=== PATIENT | female | born 2000 | race Caucasian/White ===

== ENCOUNTER 2019-09-23 06:50 | Emergency (ER) | payer SELFPAY ==
[2019-09-23 06:52] VITALS: BP 120/75; PULSE 84; RESP 16; TEMP 37; O2SAT 97; BMI 25.8
--- NOTE | 2019-09-23 06:58 | ED_ITS ---
Entered by Teodora Canseco, acting as scribe for HPI - Abdominal Pain General: Chief Complaint: General Medical Stated Complaint: vomiting/ Multiple complaints Time Seen by Provider: 09/23/19 06:58 Source: patient Mode of arrival: ambulatory History of Present Illness: HPI narrative: 19 yo female presents with heartburn, muscle aches and vomiting. pt states this started today. pt has had a headache. pt has a hx of migraines. pt states she is achy all over. pt denies any other symptoms at this time. MD elicited complaint: abdominal pain Pertinent past history: other Onset (ago): day(s) (today) Pain Consistency: constant Location: Other (bilateral knee pain) Quality: aching Radiation: none Exacerbating factors: nothing Relieving factors: nothing Associated Symptoms: Reports heartburn, nausea, vomiting and other (headache, bilateral knee pain); Denies chills, dysuria, fever(s), hematuria and syncope Related Data: Date of Last Menstrual Period: 08/31/19 Review of Systems General: Reports: other (negative unless marked) Const: Denies: fever, chills, body aches, fatigue, malaise or diaphoresis Eyes: Denies: change in vision or blurry vision ENMT: Denies: throat pain, painful swallowing, hoarseness, ear pain, ear discharge, Change in hearing or nasal discharge Card: Denies: chest pain, palpitations, irregular heart rhythm, syncope, pre- syncope, shortness of breath on exertion or shortness of breath when lying down Resp: Denies: shortness of breath, productive cough, non-productive cough, wheezing, coughing up blood or chest congestion GI: Reports: nausea, vomiting, heartburn/indigestion and other (headache, bilateral knee pain) : Denies: flank pain, painful urination, urinary frequency, urinary urgency, decreased urine ouput, urinary incontinence or blood in urine Musc: Denies: neck pain, back pain, extremity pain, extremity swelling, joint pain, joint swelling, joint warmth or joint stiffness Skin/Breast: Denies: rash, skin tenderness or yellow skin Neuro: Denies: headache, numbness in extremities, weakness in extremities, changes in sensation, lack of coordination, difficulty walking, dizziness, vertigo or confusion Endo: Denies: excessive thirst, tired all the time, cold intolerance, excessive sweating, flushing or hot flashes Lex/Lymph: Denies: easy bruising, easy bleeding, petechiae or enlarged lymph nodes All/Imm: Denies: hives, throat swelling, tongue swelling, facial swelling or acute wheezing PFSH ED PFSH: Statuses (acute, chronic, etc) shown below reflect problem list status as previously entered and may not be historically accurate Social History Smoking and tobacco status: never smoked Female Reproductive History: Date of last menstrual period: 08/31/19 Physical Exam Const: COMMON NORMALS: no apparent distress, oriented x3, no limitations, healthy appearing and well nourished EXAM LIMITATIONS: no altered mental status GENERAL APPEARANCE: cooperative, well kempt and well developed ORIENTATION/CONSCIOUSNESS: Yes awake HENMT: COMMON NORMALS: normocephalic, head/scalp atraumatic, hearing grossly normal bilaterally, external ears normal, EAC's normal, external nose normal and moist oral mucous membranes HEAD & SCALP: normal to inspection, normocephalic and atraumatic FACE & SINUS: normal facial exam and face symmetric NOSE: external nose normal and nares normal EXTERNAL EAR: Yes external ears normal EXTERNAL AUDITORY CANAL: EAC's normal MOUTH: oral and palatal mucosa normal and tongue normal Eye: COMMON NORMALS: PERRL, EOMs intact bilaterally, conjunctivae normal and no scleral icterus GENERAL EYE: normal appearance of both eyes and normal light reflex CONJUNCTIVA: Yes conjunctivae normal SCLERA: sclerae normal CORNEA: Yes corneas normal PUPIL: Yes PERRL DIRECT OPHTHALMOSCOPY: Yes normal light reflex Neck/C-Spine: COMMON NORMALS: full ROM, no lymphadenopathy, supple, no meningeal signs and no JVD GENERAL: Yes normal visual inspection and Yes trachea midline CERVICAL SPINE: Yes cervical ROM normal Chest: COMMONS NORMALS: inspection of chest normal and palpation of chest normal Resp: COMMON NORMALS: normal respiratory effort, no retractions, no use of accessory muscles and clear to auscultation bilaterally EFFORT & INSPECTION: Yes able to speak in complete sentences AUSCULTATION: clear to auscultation bilaterally Cardio: COMMON NORMALS: no JVD, regular rate, regular rhythm, S1 normal heart sound, S2 normal heart sound, no gallops, no clicks, no murmurs and no rub JUGULAR VENOUS DISTENTION: no JVD RATE: regular rate RHYTHM: regular rhythm HEART SOUNDS: S1 normal and S2 normal GI: COMMON NORMALS: soft to palpation, non-tender, no hepatosplenomegaly and no masses INSPECTION: Yes normal to inspection PALPATION: Yes soft and Yes no hepatosplenomegaly : COMMON NORMALS: Yes no CVA tenderness BLADDER/KIDNEY EXAM: Yes no CVA tenderness Back/Pelvis: COMMON NORMALS: no CVA tenderness, thoracic and lumbar spine normal to inspection, no thoracic nor lumbar tenderness and thoraco-lumbar ROM normal Extremity: COMMON NORMALS: normal to inspection, full ROM, normal capillary refill, no joint enlargement, no clubbing, cyanosis or edema and no calf tenderness Neuro: COMMON NORMALS: oriented x3, CN's II-XII intact bilaterally, moves all extremities, no focal motor deficits and no sensory deficits noted MENINGEAL SIGNS: Yes no meningeal signs Psych: COMMON NORMALS: mental status grossly normal, thought process normal, cooperative, affect normal, speech normal and activity/motor behavior normal APPEARANCE: Yes well kempt SPEECH: Yes normal speech THOUGHT PROCESS: normal thought process Skin: COMMON NORMALS: no rashes or lesions noted, skin turgor normal, no jaundice, no petechiae and no mottling GENERAL SKIN EXAM: no rashes or lesions noted and turgor normal Course Vital Signs: Vital signs: Vital Signs Temperature 98.6 F 09/23/19 06:52 Pulse Rate 71 09/23/19 07:59 Respiratory Rate 16 09/23/19 06:52 Blood Pressure 107/74 09/23/19 07:59 Pulse Oximetry 99 09/23/19 07:59 MDM - Abdominal Pain MDM Narrative: Medical decision making narrative: The patient's primary complaint was that of nausea and reflux. She complained of diffuse muscle aches and pains, somewhat flu type symptoms but her chest x-ray, urinalysis and flu test have been negative. She states she is feeling better at this time and would like to be discharged. She would like something for indigestion and nausea at home. He is also requesting time off work which I will give her. Lab Data: Labs: Lab Results 09/23/19 09/23/19 09/23/19 Range/Units 07:20 07:20 07:20 WBC 10.5 H (4.0-10.0) 10^3/ uL RBC 4.97 (4.1-5.3) 10^6/u L Hgb 14.9 (11.5-15.3) g/dL Hct 43.5 (37.0-47.0) % MCV 87.5 (81-99) fL MCH 30.0 (28.0-34.0) pg MCHC 34.3 (30.0-36.0) g/dL RDW 12.2 (12.1-15.1) % Plt Count 436 H (130-400) 10^3/c mm MPV 9.4 (7.4-10.4) fL Neut % (Auto) 64.9 % Lymph % (Auto) 25.5 % [place] % (Auto) 7.8 % Eos % (Auto) 1.1 % Baso % (Auto) 0.4 % Neut # (Auto) 6.8 (1.8-7.7) 10^3/u L Lymph # (Auto) 2.7 (0.8-4.8) 10^3/u L [place] # (Auto) 0.8 (0.2-0.9) 10^3/u L Eos # (Auto) 0.1 (0.0-0.8) 10^3/u L Baso # (Auto) 0.0 (0.0-0.1) 10^3/u L Nucleated RBC % (a uto) 0 % Nucleated RBCs # 0.0 /100WBC Sodium 134 L (136-145) mmol/L Potassium 4.0 (3.5-5.1) mmol/L Chloride 101 (98-107) mmol/L Carbon Dioxide 21 L (22-29) mmol/L Anion Gap 16.0 (5-19) BUN 14 (6-20) mg/dL Creatinine 0.6 (0.5-0.9) mg/dL GFR Calculation 126.2 (90-130) mL/min Glucose 90 (74-109) mg/dL Calcium 9.7 (8.6-10.0) mg/Dl Total Bilirubin 1.0 (0.15-1.2) mg/dL AST 20 (0-32) U/L ALT 16 (0-33) U/L Alkaline Phosphata se 59 (35-105) IU/L Total Protein 7.5 (6.6-8.7) g/dL Albumin 4.5 (3.5-5.2) g/dL Globulin 3.0 (1.3-4.6) g/dL HCG, Qual Negative (Negative) Urine Color (Yellow) Urine Appearance (CLEAR) Urine pH (5-7) Ur Specific Gravit y (1.005-1.030) Urine Protein (Negative) Urine Glucose (UA) (Normal) Urine Ketones (Negative) Urine Occult Blood (Negative) Urine Nitrate (Negative) Urine Bilirubin (NEGATIVE) Urine Urobilinogen (Negative) mg/dL Ur Leukocyte Leona ase (Negative) Urine RBC (0-2) /hpf Urine WBC (0-5) /hpf Ur Squamous Epith Cells (0-5) Urine Bacteria (NONE) Urine Mucus Influenza Type A A g (Negative) POC Influenza B Ag (Negative) 09/23/19 09/23/19 Range/Units 07:44 07:56 WBC (4.0-10.0) 10^3/ uL RBC (4.1-5.3) 10^6/u L Hgb (11.5-15.3) g/dL Hct (37.0-47.0) % MCV (81-99) fL MCH (28.0-34.0) pg MCHC (30.0-36.0) g/dL RDW (12.1-15.1) % Plt Count (130-400) 10^3/c mm MPV (7.4-10.4) fL Neut % (Auto) % Lymph % (Auto) % [place] % (Auto) % Eos % (Auto) % Baso % (Auto) % Neut # (Auto) (1.8-7.7) 10^3/u L Lymph # (Auto) (0.8-4.8) 10^3/u L [place] # (Auto) (0.2-0.9) 10^3/u L Eos # (Auto) (0.0-0.8) 10^3/u L Baso # (Auto) (0.0-0.1) 10^3/u L Nucleated RBC % (a uto) % Nucleated RBCs # /100WBC Sodium (136-145) mmol/L Potassium (3.5-5.1) mmol/L Chloride (98-107) mmol/L Carbon Dioxide (22-29) mmol/L Anion Gap (5-19) BUN (6-20) mg/dL Creatinine (0.5-0.9) mg/dL GFR Calculation (90-130) mL/min Glucose (74-109) mg/dL Calcium (8.6-10.0) mg/Dl Total Bilirubin (0.15-1.2) mg/dL AST (0-32) U/L ALT (0-33) U/L Alkaline Phosphata se (35-105) IU/L Total Protein (6.6-8.7) g/dL Albumin (3.5-5.2) g/dL Globulin (1.3-4.6) g/dL HCG, Qual (Negative) Urine Color Yellow (Yellow) Urine Appearance Sl hazy (CLEAR) Urine pH 5 (5-7) Ur Specific Gravit y 1.015 (1.005-1.030) Urine Protein Neg (Negative) Urine Glucose (UA) Norm (Normal) Urine Ketones Negative (Negative) Urine Occult Blood Neg (Negative) Urine Nitrate Negative (Negative) Urine Bilirubin Neg (NEGATIVE) Urine Urobilinogen Norm (Negative) mg/dL Ur Leukocyte Leona ase Negative (Negative) Urine RBC 0-4 H (0-2) /hpf Urine WBC 5-10 H (0-5) /hpf Ur Squamous Epith Cells 10-15 H (0-5) Urine Bacteria 1+ H (NONE) Urine Mucus Trace Influenza Type A A g Negative (Negative) POC Influenza B Ag Negative (Negative) Imaging Data ^: CXR: My impression: Lungs clear bilaterally. Normal heart size without sign of cardiomegaly. Soft tissues and musculoskeletal findings clear. Discharge Plan Discharge Patient Disposition: Home, Self-Care Condition: Stable Prescriptions: New Pepcid 20 mg tablet 20 mg PO BID Qty: 20 RF: 0 Zofran 4 mg tablet 4 mg PO DAILY PRN (Reason: nausea and vomiting) 4 Days Qty: 10 RF: 0 No Action Apri 0.15-0.03 mg Tablet 1 tab PO DAILY RF: 0 Discharge Orders: Discharge Order (Routine); Ordered 09/23/19 Ordered By: Jenn Olson Referrals: Gustavo Baltazar, DO [Family Provider] - Discharge Diet: Advance as tolerated Discharge Activity: Resume usual activity Patient Instructions: Abdominal Pain - Adult Activity Restrictions/Additional Instructions: Please return to the ER immediately for any of the signs or symptoms listed on your discharge instruction sheets, worsening/changing of your symptoms, you are not getting better as quickly as expected, or for ANY other cause or concerns. Discharge Date/Time: 09/23/19 09:25 Coding Level of Care Code ED Decal Maker for Chapito Alfred The documentation recorded by the Ajith kunz Bridget Annette, accurately reflects the service I personally performed and the decisions made by Whitney soliz Eli N Sep 23, 2019 06:50
--- NOTE | 2019-09-23 07:00 | XR_ITS ---
WS: [id number] PORTABLE CHEST HISTORY: FEVER COMPARISON: 05/04/2016 Lungs are clear and well expanded. No pleural effusion or pneumothorax. Cardiac size: Normal. Mediastinum/Aorta: Normal mediastinum. No osseous abnormality seen. XR/XR chest 1V portable [id number] IMPRESSION: Unremarkable portable chest.
[2019-09-23] MEDS: acetaminophen 325 mg Tablet 650 MG PO (07:31)
[2019-09-23] MEDS: sodium chloride 0.9% 1,000 ML 999 ML IV (07:32)
[2019-09-23] MEDS: ondansetron 2 mg/ML SDV 2 mL 4 MG IVP (07:32)
[2019-09-23 07:33] LABS: Basophils % 0.4 %; Eosinophils # 0.1 10^3/uL (0.0-0.8); Eosinophils % 1.1 %; Hematocrit 43.5 % (37.0-47.0); Hemoglobin 14.9 g/dL (11.5-15.3); Lymphocytes # 2.7 10^3/uL (0.8-4.8); Lymphocytes % 25.5 %; Mean Corpuscular HGB Conc 34.3 g/dL (30.0-36.0); Mean Corpuscular Volume 87.5 fL (81-99); Mean Platelet Volume 9.4 fL (7.4-10.4); Monocytes # 0.8 10^3/uL (0.2-0.9); Monocytes % 7.8 %; Neutrophils # 6.8 10^3/uL (1.8-7.7); Neutrophils % 64.9 %; Nucleated Red Blood Cells % 0 %; Platelet Count 436 10^3/cmm (130-400); Red Blood Count 4.97 10^6/uL (4.1-5.3); Red Cell Distribution Width 12.2 % (12.1-15.1); White Blood Count 10.5 10^3/uL (4.0-10.0)
[2019-09-23 07:49] LABS: Alanine Aminotransferase 16 U/L (0-33); Albumin Level 4.5 g/dL (3.5-5.2); Alkaline Phosphatase 59 IU/L (35-105); Aspartate Amino Transferase 20 U/L (0-32); Blood Urea Nitrogen 14 mg/dL (6-20); Calcium 9.7 mg/Dl (8.6-10.0); Carbon Dioxide 21 mmol/L (22-29); Chloride 101 mmol/L (98-107); Glomerular Filtration Rate 126.2 mL/min (90-130); Glucose 90 mg/dL (74-109); Sodium 134 mmol/L (136-145); Total Protein 7.5 g/dL (6.6-8.7)
[2019-09-23 07:52] LABS: HCG, Serum Qual Negative (Negative)
[2019-09-23 07:59] VITALS: BP 107/74; PULSE 71; O2SAT 99
[2019-09-23 08:14] LABS: Influenza A by IFA Negative (Negative)
[2019-09-23 08:15] LABS: Influenza B by IFA Negative (Negative)
[2019-09-23 08:25] LABS: Bilirubin Urine Neg (NEGATIVE); Blood Urine Neg (Negative); Glucose Urine UA Norm (Normal); Ketones Urine Negative (Negative); Leukocyte Esterase Urine Negative (Negative); Nitrate Urine Negative (Negative); Protein Urine Neg (Negative); Specific Gravity, Urine 1.015 (1.005-1.030); Urine Appearance SL Hazy (CLEAR); Urine Color Yellow (Yellow); Urobilinogen Urine Norm (Negative); pH Urine 5 (5-7)
[2019-09-23 08:35] LABS: Mucus Urine TRACE
[2019-09-23 08:36] LABS: Add Urine Culture? No; Bacteria Urine 1+; RBC Urine 0-4 /hpf (0-2)
--- NOTE | 2019-09-23 09:20 | NUR.SHIFT ---
Patient is up and dressed. Blood pressure improved with activity blood pressure 102/64 at this time and preparing for discharge.
== END 2019-09-23 09:25 | disposition home or self-care (01) ==
PROVIDERS: Emergency Provider Emergency Medicine; Family Provider Family Medicine
DX: R11.10 Vomiting, unspecified (principal); R10.9 Unspecified abdominal pain
CPT/HCPCS: 71045; 80053; 81001; 84703; 85025; 87804; 96360; 96374; 99282; A9270; J2405; J7030

== ENCOUNTER 2019-11-14 15:52 | Outpatient (CLI) | payer SELFPAY ==
--- NOTE | 2019-11-14 16:05 | XR_ITS ---
WS: [id number] LEFT SHOULDER: 3 VIEW(S) TECHNIQUE: Internal and external rotation with Y view. HISTORY: SHOULDER PAIN LEFT COMPARISON: None available. No fracture or dislocation or soft tissue abnormality. Glenohumeral and AC joints are unremarkable. XR/XR shoulder LT min 2V* [id number] IMPRESSION: Normal LEFT shoulder.
== END 2019-11-14 15:53 | disposition home or self-care (01) ==
LOC: RADWPI 15:55
PROVIDERS: Family Provider Family Medicine; PCP Nurse Practitioner Family; Visit Provider Nurse Practitioner Family
DX: M25.512 Pain in left shoulder (principal)
CPT/HCPCS: 73030

== ENCOUNTER 2020-04-21 08:40 | Emergency (ER) | payer MEDICAID, SELFPAY ==
[2020-04-21 08:45] VITALS: BP 119/67; PULSE 84; RESP 16; TEMP 36.9; O2SAT 99; BMI 27.6
--- NOTE | 2020-04-21 08:48 | W.ED.ABDPA2 ---
HPI - Abdominal Pain General: Chief Complaint: Abdominal Pain Stated Complaint: 12 WEEKS PREG ABD PAIN Time Seen by Provider: 04/21/20 08:45 History of Present Illness: HPI narrative: 19-year-old female comes in complaining abdominal pain she is at approximately 12 weeks 6 days. She is a G1, P0 EDC of 11/17/2020. She complaining of low pelvic pain and suprapubic pain she denies any flank pain. Started last night she denies any fever she not had any nausea or vomiting she has had a couple episodes of loose stools no hematochezia or melena she denies any vaginal bleeding or discharge or itching. She describes the pain is intermittent and cramping. MD elicited complaint: abdominal pain Pertinent past history: other (Current ) Onset (ago): day(s) Pain Consistency: intermittent Location: Suprapubic Severity: moderate Quality: cramping Radiation: none Migration to: no migration Exacerbating factors: nothing Relieving factors: rest Associated Symptoms: Denies change in stool character, coffee ground emesis, constipation, GI cramping, diarrhea, dysuria, fever(s), hematochezia, hematuria, hematemesis, fecal incontinence, loose stools, melena, nausea, poor appetite and vomiting Related Data: Date of Last Menstrual Period: 08/31/19 Review of Systems Const: Denies: fever(s) ENMT: Denies: throat pain, ear or mastoid pain, nasal discharge or nasal congestion Card: Denies: chest pain, edema, dyspnea on exertion or orthopnea Resp: Denies: dyspnea, productive cough or non-productive cough GI: Denies: nausea, vomiting, hematemesis, coffee ground emesis, diarrhea, constipation, GI cramping, fecal incontinence, change in stool character, hematochezia or melena : Denies: dysuria or hematuria Skin/Breast: Denies: rash or pruritus PFSH ED PFSH: Medical History (Updated 04/21/20 @ 16:06 by Gustavo Baltazar DO) Hereditary cavernous hemangioma of brain Hypothyroidism Surgical History (Updated 04/21/20 @ 16:06 by Gustavo Baltazar DO) No history of previous surgery Social History (Updated 04/21/20 @ 16:06 by Gustavo Baltazar DO) Smoking and tobacco status: never smoked Alcohol intake: never Female Reproductive History: Date of last menstrual period: 08/31/19 Physical Exam Const: COMMON NORMALS: no acute distress GENERAL APPEARANCE: cooperative and comfortable ORIENTATION/CONSCIOUSNESS: Yes awake, Yes oriented to person, Yes oriented to place and Yes oriented to time HENMT: COMMON NORMALS: normocephalic, atraumatic, hearing grossly normal bilaterally, external ears normal, EAC's normal, TM's normal bilaterally, Normal nasal mucous membranes and turbinates present, moist oral mucous membranes and oropharynx normal HEAD & SCALP: normocephalic and atraumatic NOSE: Normal nasal mucous membranes and turbinates present EXTERNAL EAR: Yes external ears normal EXTERNAL AUDITORY CANAL: EAC's normal TYMPANIC MEMBRANE: TM's normal bilaterally Eye: COMMON NORMALS: Equal, round and reactive pupils present, EOMs intact bilaterally, conjunctivae normal and no scleral icterus CONJUNCTIVA: Yes conjunctivae normal PUPIL: Yes Equal, round and reactive pupils present Neck/C-Spine: COMMON NORMALS: full ROM, no lymphadenopathy, supple and no JVD Lymph: LYMPHATIC: no lymphadenopathy noted and no lymphedema noted Resp: COMMON NORMALS: normal respiratory effort, No retractions, No use of accessory muscles and clear to auscultation bilaterally AUSCULTATION: clear to auscultation bilaterally Cardio: COMMON NORMALS: no JVD, regular rate, regular rhythm and No murmurs present (Cardio) RATE: regular rate RHYTHM: regular rhythm GI: COMMON NORMALS: Soft to palpation and No hepatosplenomegaly present AUSCULTATION: Yes normoactive bowel sounds PALPATION: Yes Soft to palpation, No Tenderness to palpation present (GI), No Guarding due to palpation present (GI) and Yes No hepatosplenomegaly present Extremity: COMMON NORMALS: normal to inspection, capillary refill normal, no clubbing, cyanosis or edema, no calf tenderness and no pedal edema Neuro: SENSORIUM/ORIENTATION: Yes oriented to person, Yes oriented to place and Yes oriented to time Skin: COMMON NORMALS: no rashes or lesions noted GENERAL SKIN EXAM: no rashes or lesions noted Course Vital Signs: Vital signs: Vital Signs Temperature 98.4 F 04/21/20 08:45 Pulse Rate 80 04/21/20 10:41 Respiratory Rate 18 04/21/20 10:41 Blood Pressure 110/71 04/21/20 10:41 Pulse Oximetry 99 04/21/20 10:41 MDM - Abdominal Pain MDM Narrative: Medical decision making narrative: Viewed findings with the patient. Suspect she has round ligament pain did do a bedside ultrasound to confirm intrauterine and heart tones demonstrated to the patient. Discussed with her that this is a limited ultrasound only intended to show heart tones and intrauterine . Follow-up with her MICROSTRATEGY ARCHITECT DEVELOPER as previously scheduled Lab Data: Labs: Lab Results 04/21/20 04/21/20 04/21/20 Range/Units 09:05 09:14 09:14 WBC 11.5 H (4.0-10.0) 10^3/ uL RBC 4.25 (4.1-5.3) 10^6/u L Hgb 12.9 (11.5-15.3) g/dL Hct 37.6 (37.0-47.0) % MCV 88.5 (81-99) fL MCH 30.4 (28.0-34.0) pg MCHC 34.3 (30.0-36.0) g/dL RDW 12.7 (12.1-15.1) % Plt Count 351 (130-400) 10^3/c mm MPV 9.7 (7.4-10.4) fL Neut % (Auto) 71.4 % Lymph % (Auto) 19.7 % [place] % (Auto) 7.0 % Eos % (Auto) 1.3 % Baso % (Auto) 0.3 % Neut # (Auto) 8.21 H (1.8-7.7) 10^3/u L Lymph # (Auto) 2.3 (0.8-4.8) 10^3/u L [facility] # (Auto) 0.8 (0.2-0.9) 10^3/u L Eos # (Auto) 0.2 (0.0-0.8) 10^3/u L Baso # (Auto) 0.0 (0.0-0.1) 10^3/u L Nucleated RBC % (a uto) 0 % Nucleated RBCs # 0.0 /100WBC Sodium 136 (136-145) mmol/L Potassium 3.7 (3.5-5.1) mmol/L Chloride 104 (98-107) mmol/L Carbon Dioxide 22 (22-29) mmol/L Anion Gap 13.7 (5-19) BUN 7 (6-20) mg/dL Creatinine 0.6 (0.5-0.9) mg/dL GFR Calculation 126.2 (90-130) mL/min Glucose 86 (65-115) mg/dL Calculated Osmolal ity 277 L (285-295) mOsm/k g Calcium 9.0 (8.5-10.5) mg/dL Total Bilirubin 0.5 (0.15-1.2) mg/dL AST 14 (0-32) U/L ALT 9 (0-33) U/L Alkaline Phosphata se 59 (35-105) IU/L Total Protein 6.5 L (6.6-8.7) g/dL Albumin 3.7 (3.5-5.2) g/dL Globulin 2.8 (1.3-4.6) g/dL Ser , [place] [address].00 mIU/mL Urine Color Yellow (Yellow) Urine Appearance Hazy A (CLEAR) Urine pH 7 (5-7) Ur Specific Gravit y 1.015 (1.005-1.030) Urine Protein Neg (Negative) Urine Glucose (UA) Norm (Normal) Urine Ketones Negative (Negative) Urine Blood Neg (Negative) Urine Nitrate Negative (Negative) Urine Bilirubin Neg (NEGATIVE) Urine Urobilinogen Norm (Negative) mg/dL Ur Leukocyte Leona ase Negative (Negative) Urine RBC None (0-2) /hpf Urine WBC 0-4 H (0-5) /hpf Ur Squamous Epith Cells 15-25 H (0-5) Amorphous Sediment Not Reportable Urine Bacteria 2+ H (NONE) Discharge Plan Discharge Patient Disposition: Home Clinical Impression: Pain of round ligament during Condition: Stable Prescriptions: No Action Tylenol 325 mg Tablet 325 mg PO PRN RF: 0 Euthyrox 25 mcg tablet 25 mcg PO DAILY RF: 0 Gummies 400 mcg-35 mg- 25 mg-5 mg Tablet,Chewable 2 tab PO DAILY RF: 0 Discharge Orders: Discharge Order (Routine); Ordered 04/21/20 Ordered By: Gustavo Baltazar Referrals: KELLIE ELKINS, DOG OR HORSE RACING OFFICIAL [Primary Care Provider] - Discharge Diet: Usual diet Discharge Activity: Increase activity as tolerated Patient Instructions: Cholecystitis (ED), Abdominal Pain (ED) Activity Restrictions/Additional Instructions: Follow-up with Dr. Linder as previously planned Discharge Date/Time: 04/21/20 10:45 Coding Level of Care Code ED Oiler Helper for Chapito Alfred
[2020-04-21 09:23] LABS: Basophils % 0.3 %; Eosinophils # 0.2 10^3/uL (0.0-0.8); Eosinophils % 1.3 %; Hematocrit 37.6 % (37.0-47.0); Hemoglobin 12.9 g/dL (11.5-15.3); Lymphocytes # 2.3 10^3/uL (0.8-4.8); Lymphocytes % 19.7 %; Mean Corpuscular HGB Conc 34.3 g/dL (30.0-36.0); Mean Corpuscular Hemoglobin 30.4 pg (28.0-34.0); Mean Corpuscular Volume 88.5 fL (81-99); Mean Platelet Volume 9.7 fL (7.4-10.4); Monocytes # 0.8 10^3/uL (0.2-0.9); Neutrophils # 8.21 10^3/uL (1.8-7.7); Neutrophils % 71.4 %; Nucleated Red Blood Cells % 0 %; Platelet Count 351 10^3/cmm (130-400); Red Blood Count 4.25 10^6/uL (4.1-5.3); Red Cell Distribution Width 12.7 % (12.1-15.1); White Blood Count 11.5 10^3/uL (4.0-10.0)
[2020-04-21] MEDS: sodium chloride 0.9% 500 ML 999 ML IV (09:37)
[2020-04-21 09:55] LABS: Alanine Aminotransferase 9 U/L (0-33); Albumin Level 3.7 g/dL (3.5-5.2); Alkaline Phosphatase 59 IU/L (35-105); Anion Gap 13.7 (5-19); Aspartate Amino Transferase 14 U/L (0-32); Blood Urea Nitrogen 7 mg/dL (6-20); Carbon Dioxide 22 mmol/L (22-29); Chloride 104 mmol/L (98-107); Globulin 2.8 g/dL (1.3-4.6); Glomerular Filtration Rate 126.2 mL/min (90-130); Glucose 86 mg/dL (65-115); Osmolality Calculated 277 mOsm/kg (285-295); Potassium 3.7 mmol/L (3.5-5.1); Sodium 136 mmol/L (136-145); Total Bilirubin 0.5 mg/dL (0.15-1.2); Total Protein 6.5 g/dL (6.6-8.7)
[2020-04-21] MEDS: metoclopramide 5 mg/mL SDV 2 mL 10 MG IVP (09:56)
[2020-04-21 10:11] LABS: Urine Appearance Hazy (CLEAR); Urine Color Yellow (Yellow)
[2020-04-21 10:12] LABS: Add Urine Culture? No; Add Urine Microscopic? YES; Bacteria Urine 2+; Bilirubin Urine Neg (NEGATIVE); Blood Urine Neg (Negative); Glucose Urine UA Norm (Normal); Ketones Urine Negative (Negative); Leukocyte Esterase Urine Negative (Negative); Nitrate Urine Negative (Negative); Protein Urine Neg (Negative); Specific Gravity, Urine 1.015 (1.005-1.030); Squamous Epithelial Cell Urine 15-25 (0-5); Urobilinogen Urine Norm (Negative); WBC Urine 0-4 /hpf (0-5); pH Urine 7 (5-7)
[2020-04-21 10:41] VITALS: BP 110/71; PULSE 80; RESP 18; O2SAT 99
== END 2020-04-21 10:45 | disposition home or self-care (01) ==
PROVIDERS: Emergency Provider Family Medicine; PCP Nurse Practitioner Family
DX: O26.891 Other specified pregnancy related conditions, first trimester (principal); Z3A.12 12 weeks gestation of pregnancy; R10.2 Pelvic and perineal pain
CPT/HCPCS: 12345; 36415; 80053; 81001; 81003; 84702; 85025; 96361; 96374; 96375; 99283; J2765; J7040

== ENCOUNTER → 2020-08-13 12:27 | Day surgery (SDC) | payer MEDICAID, SELFPAY ==
[2020-08-13 12:56] VITALS: BP 115/80; PULSE 85; RESP 18; TEMP 37.2; O2SAT 97; BMI 30.9
[2020-08-13 17:43] VITALS: PULSE 85; RESP 18; TEMP 37.2
== END ==
PROVIDERS: PCP Family Medicine; Visit Provider Family Medicine
DX: O26.899 Other specified pregnancy related conditions, unspecified trimester (principal); Z3A.00 Weeks of gestation of pregnancy not specified; Z31.82 Encounter for Rh incompatibility status; Z67.91 Unspecified blood type, Rh negative
CPT/HCPCS: 36415; 86850; 86900; 90384; 96372

== ENCOUNTER 2020-08-17 18:50 | Outpatient (CLI) | payer MEDICAID, SELFPAY ==
[2020-08-17] VITALS (27 sets, daily range): BP systolic 0–129; BP diastolic 0–83; PULSE 73–107; RESP 16; TEMP 36.7–36.9; O2SAT 96–100; BMI 31.3
[2020-08-17 19:43] LABS: Nitrazine Paper, PH Negative
[2020-08-17 20:16] LABS: Bilirubin Urine Neg (Negative); Blood Urine Neg (Negative); Glucose Urine UA Norm (Normal); Ketones Urine 1+ (Negative); Leukocyte Esterase Urine Negative (Negative); Nitrate Urine Negative (Negative); Protein Urine Neg (Negative); RBC Urine 0-4 /hpf (0-2); Urine Appearance SL Hazy (CLEAR); Urine Color Yellow (Yellow); Urobilinogen Urine 4 mg/dL (Negative); pH Urine 6.5 (5-7)
[2020-08-17 20:17] LABS: Add Urine Culture? No; Bacteria Urine TRACE /hpf; Calcium Oxalate Crystals Urine 25-40 /hpf; Squamous Epithelial Cell Urine >100 /hpf (0-5); WBC Urine 0-4 /hpf (0-5)
[2020-08-17] MEDS: acetaminophen 500 mg Tablet 1000 MG PO (21:10)
== END 2020-08-17 22:50 | disposition home or self-care (01) ==
LOC: OPOB 18:58 → OBGYN 22:45
PROVIDERS: PCP Family Medicine; Visit Provider Family Medicine
DX: O36.8190 Decreased fetal movements, unspecified trimester, not applicable or unspecified (principal); Z3A.00 Weeks of gestation of pregnancy not specified; R10.9 Unspecified abdominal pain
CPT/HCPCS: 59025; 81001; 83986; 99211

== ENCOUNTER 2020-09-26 00:41 | Outpatient (CLI) | payer MEDICAID, SELFPAY ==
[2020-09-26] VITALS (10 sets, daily range): BP systolic 119–124; BP diastolic 79–84; PULSE 76–84; RESP 16; TEMP 36.2; BMI 33.9
[2020-09-26 01:52] LABS: Urine Appearance Clear (CLEAR); Urine Color Yellow (Yellow)
[2020-09-26 01:53] LABS: Add Urine Culture? No; Bacteria Urine 2+ /hpf; Bilirubin Urine Neg (Negative); Blood Urine Neg (Negative); Glucose Urine UA Norm (Normal); Ketones Urine Negative (Negative); Leukocyte Esterase Urine Negative (Negative); Nitrate Urine Negative (Negative); Protein Urine Trace (Negative); Specific Gravity, Urine 1.005 (1.005-1.030); Squamous Epithelial Cell Urine 0-4 /hpf (0-5); Urobilinogen Urine Norm (Negative); WBC Urine 0-4 /hpf (0-5); pH Urine 6.5 (5-7)
[2020-09-26] MEDS: HYDROcodone-acetaminophen 5-325 mg Tablet 1 TAB PO (01:57)
== END 2020-09-26 02:45 | disposition home or self-care (01) ==
LOC: OPOB 00:41 → OBGYN 00:42
PROVIDERS: PCP Family Medicine; Visit Provider Family Medicine
DX: O21.9 Vomiting of pregnancy, unspecified (principal); R19.7 Diarrhea, unspecified; R51.9 Headache, unspecified; Z3A.00 Weeks of gestation of pregnancy not specified
CPT/HCPCS: 59025; 81001; 99211

== ENCOUNTER 2020-10-02 16:59 | Outpatient (CLI) | payer MEDICAID, SELFPAY ==
[2020-10-02 17:33] VITALS: BP 125/89; PULSE 86
[2020-10-02 17:46] VITALS: BP 124/88; PULSE 90
[2020-10-02 18:02] VITALS: BP 135/93; PULSE 88
[2020-10-02 18:17] VITALS: BP 134/93; PULSE 80
[2020-10-02 18:20] VITALS: BP 134/93; PULSE 80
== END 2020-10-02 18:23 | disposition home or self-care (01) ==
LOC: OPOB 17:00 → OBGYN 18:07
PROVIDERS: PCP Family Medicine; Visit Provider Family Medicine
DX: O16.9 Unspecified maternal hypertension, unspecified trimester (principal); Z3A.00 Weeks of gestation of pregnancy not specified
CPT/HCPCS: 59025; 99211

== ENCOUNTER 2020-10-05 20:27 | Inpatient (IN) | payer MEDICAID, SELFPAY ==
[2020-10-05] VITALS (22 sets, daily range): BP systolic 121–175; BP diastolic 83–106; PULSE 83–104; RESP 14–18; TEMP 36.9–37.1; BMI 35.3
[2020-10-05 18:54] LABS: Nitrazine Paper, PH Inconclusive
[2020-10-05 19:17] LABS: Bilirubin Urine Neg (Negative); Blood Urine Neg (Negative); Glucose Urine UA Norm (Normal); Ketones Urine Negative (Negative); Leukocyte Esterase Urine Negative (Negative); Nitrate Urine Negative (Negative); Protein Urine 3+ (Negative); Urine Color Yellow (Yellow); Urobilinogen Urine Norm (Negative); pH Urine 6.5 (5-7)
[2020-10-05 19:19] LABS: Add Urine Culture? No; Bacteria Urine 2+ /hpf; RBC Urine 0-4 /hpf (0-2); Squamous Epithelial Cell Urine 40-55 /hpf (0-5); WBC Urine 0-4 /hpf (0-5)
[2020-10-05 19:33] LABS: Urine Creatinine 193 mg/dL (28-217)
[2020-10-05 19:52] LABS: UPRO/UCREAT Ratio 3.95 mg/mg CR; Urine Protein Random 762 mg/dL
[2020-10-05] MEDS: miSOPROStol 100 mcg tablet 25 MCG VAGINAL (21:00)
[2020-10-05] MEDS: ampicillin 2,000 MG in sodium chloride 0.9% (plus) 50 ML 100 MG IV (21:01)
[2020-10-05] MEDS: dextrose 5%-lactated ringers 1,000 ML 125 ML IV (21:02)
[2020-10-05 21:51] LABS: Basophils # 0.1 10^3/uL (0.0-0.1); Basophils % 0.3 %; Eosinophils # 0.1 10^3/uL (0.0-0.8); Eosinophils % 0.6 %; Hematocrit 36.4 % (37.0-47.0); Hemoglobin 11.8 g/dL (11.5-15.3); Lymphocytes # 3.6 10^3/uL (0.8-4.8); Lymphocytes % 20.6 %; Mean Corpuscular HGB Conc 32.4 g/dL (30.0-36.0); Mean Corpuscular Hemoglobin 28.5 pg (28.0-34.0); Mean Corpuscular Volume 87.9 fL (81-99); Mean Platelet Volume 12.1 fL (7.4-10.4); Monocytes # 1.1 10^3/uL (0.2-0.9); Neutrophils # 12.69 10^3/uL (1.8-7.7); Neutrophils % 71.8 %; Nucleated Red Blood Cells % 0 %; Platelet Count 288 10^3/cmm (130-400); Red Blood Count 4.14 10^6/uL (4.1-5.3); Red Cell Distribution Width 13.2 % (12.1-15.1); White Blood Count 17.7 10^3/uL (4.0-10.0)
[2020-10-05 22:18] LABS: Alanine Aminotransferase 12 U/L (0-33); Albumin Level 3.1 g/dL (3.5-5.2); Alkaline Phosphatase 129 IU/L (35-105); Anion Gap 15.1 (5-19); Aspartate Amino Transferase 23 U/L (0-32); Blood Urea Nitrogen 12 mg/dL (6-20); Calcium 8.7 mg/dL (8.5-10.5); Carbon Dioxide 19 mmol/L (22-29); Chloride 98 mmol/L (98-107); Globulin 3.1 g/dL (1.3-4.6); Glomerular Filtration Rate 89.7 mL/min (90-130); Glucose 69 mg/dL (65-115); Osmolality Calculated 264 mOsm/kg (285-295); Potassium 4.1 mmol/L (3.5-5.1); Sodium 128 mmol/L (136-145); Total Bilirubin 0.7 mg/dL (0.15-1.2); Total Protein 6.2 g/dL (6.6-8.7); Uric Acid 6.6 mg/dL (2.4-5.7)
[2020-10-06] VITALS (87 sets, daily range): BP systolic 124–176; BP diastolic 61–104; PULSE 81–139; RESP 16–22; TEMP 36.1–37.7; O2SAT 97–100
[2020-10-06] MEDS: ampicillin 1,000 MG in sodium chloride 0.9% (plus) 50 ML 100 MG IV ×6 (01:14→20:30)
[2020-10-06] MEDS: lactated ringers 1,000 ML 999 ML IV ×2 (01:14→13:11)
[2020-10-06] MEDS: fentaNYL 50 mcg/mL INJ 2mL IV ×9 (07:16→23:49)
[2020-10-06] MEDS: miSOPROStol 100 mcg tablet 25 MCG SUBLINGUAL (09:06)
--- NOTE | 2020-10-06 13:42 | ANES.PREANE2 ---
Pre-Anesthetic Assessment Pre-Anesthetic Assessment: Height/Weight: Height 1.5 m Weight 79.379 kg Temp Pulse Resp BP 98.8 F 91 18 133/78 10/06/20 10:51 10/06/20 12:33 10/06/20 12:46 10/06/20 12:33 Preop Diagnosis: labor Proposed Procedure: epidural Familial anesthetic complications: na Was Beta Sadia taken within 24 hours: N/A Last Intake: 01:00 Social: Social History: No alcohol and No tobacco Exam: Pre-Anes Outpt Exam: alert, oriented x 3, clear to auscultation bilaterally and regular rate & rhythm Airway: Submandibular: WNL Cervical ROM: WNL MP: 2 Dentition: Full Pulmonary: Pulmonary: None reported CV/HEM: CV/HEM: HTN (with ) : : None reported Hepatic: Hepatic: None reported GI: GI: None reported Metabolic: Metabolic: Thyroid (hypo) Musc/skel: Musc/skel: None reported Neuropsych: Neuropsych: Anxiety, Depression and KLINE Comments: venous angioma Anesthetic Plan: ASA status: 2 Anesthesia: Regional (specify below) (epidural) Meds/Allergies Current Medications: Current Medications Generic Name Dose Route Start Last Admin Trade Name Freq PRN Reason Stop Dose Admin Fentanyl 25 - 100 mcg 10/05/20 20:26 10/06/20 12:46 Fentanyl 50 Mcg/ Ml Inj 2ml IV 50 mcg Q1H PRN Administration SEVERE PAIN Dextrose/Lactated Ringer's 1,000 mls @ 125 m ls/hr 10/05/20 20:30 10/05/20 21:02 Dextrose 5%-Lact ated Ringers IV 125 mls/hr .Q8H SHERRON Administration Lactated Ringer's 1,000 mls @ 999 m ls/hr 10/05/20 20:26 10/06/20 01:14 Lactated Ringers IV 999 mls/hr .Q1H1M PRN Administration BLEEDING Lactated Ringer's 1,000 mls @ 999 m ls/hr 10/05/20 20:26 10/06/20 13:11 Lactated Ringers IV 999 mls/hr .Q1H1M PRN Administration Per L&D Rescitati on Protocol Ampicillin Sodium 1,000 mg/ 50 mls @ 100 mls/ hr 10/06/20 00:27 10/06/20 09:05 Sodium Chloride IV Infused Q4H SHERRON Infusion Protocol PFSH Anesthesia PFSH: Medical History (Updated 04/29/20 @ 00:01 by ) Hereditary cavernous hemangioma of brain Hypothyroidism Surgical History (Updated 04/21/20 @ 16:06 by Gustavo Baltazar DO) No history of previous surgery Social History (Updated 04/21/20 @ 16:06 by Gustavo Baltazar DO) Smoking and tobacco status: never smoked Alcohol intake: never Female Reproductive History: Date of last menstrual period: 08/31/19 : 1 Data Anesthesia CBC & Chem 7: 10/05/20 20:53 10/05/20 20:53 Other Labs: Laboratory Results - last 48 hr 10/05/20 10/05/20 10/05/20 18:00 18:00 18:40 WBC RBC Hgb Hct MCV MCH MCHC RDW Plt Count MPV Neut % (Auto) Lymph % (Auto) [place] % (Auto) Eos % (Auto) Baso % (Auto) Neut # (Auto) Lymph # (Auto) [place] # (Auto) Eos # (Auto) Baso # (Auto) Nucleated RBC % (auto) Nucleated RBCs # Sodium Potassium Chloride Carbon Dioxide Anion Gap BUN Creatinine GFR Calculation Glucose Calculated Osmolality Uric Acid Calcium Total Bilirubin AST ALT Alkaline Phosphatase Total Protein Albumin Globulin Insulin-like GF I Cancelled Urine Color Yellow Urine Appearance Sl cloudy A Urine pH 6.5 Ur Specific [place] 1.010 Urine Protein 3+ H Urine Glucose (UA) Norm Urine Ketones Negative Urine Blood Neg Urine Nitrate Negative Urine Bilirubin Neg Urine Urobilinogen Norm Ur Leukocyte Esterase Negative Urine RBC 0-4 H Urine WBC 0-4 H Ur Squamous Epith Cells 40-55 H Amorphous Sediment Not Reportable Urine Bacteria 2+ H U Random Total Protein 762 Urine Creatinine 193 Protein/Creatinin Ratio 3.95 10/05/20 10/05/20 20:53 20:53 WBC 17.7 H RBC 4.14 Hgb 11.8 Hct 36.4 L MCV 87.9 MCH 28.5 MCHC 32.4 RDW 13.2 Plt Count 288 MPV 12.1 H Neut % (Auto) 71.8 Lymph % (Auto) 20.6 [place] % (Auto) 6.0 Eos % (Auto) 0.6 Baso % (Auto) 0.3 Neut # (Auto) 12.69 H Lymph # (Auto) 3.6 [place] # (Auto) 1.1 H Eos # (Auto) 0.1 Baso # (Auto) 0.1 Nucleated RBC % (auto) 0 Nucleated RBCs # 0.0 Sodium 128 L Potassium 4.1 Chloride 98 Carbon Dioxide 19 L Anion Gap 15.1 BUN 12 Creatinine 0.8 GFR Calculation 89.7 L Glucose 69 Calculated Osmolality 264 L Uric Acid 6.6 H Calcium 8.7 Total Bilirubin 0.7 AST 23 ALT 12 Alkaline Phosphatase 129 H Total Protein 6.2 L Albumin 3.1 L Globulin 3.1 Insulin-like GF I Urine Color Urine Appearance Urine pH Ur Specific [place] Urine Protein Urine Glucose (UA) Urine Ketones Urine Blood Urine Nitrate Urine Bilirubin Urine Urobilinogen Ur Leukocyte Esterase Urine RBC Urine WBC Ur Squamous Epith Cells Amorphous Sediment Urine Bacteria U Random Total Protein Urine Creatinine Protein/Creatinin Ratio Cardiac Studies: No Data to Display
--- NOTE | 2020-10-06 14:20 | ANES.PROC ---
Anesthesia Procedures Procedure/Date: 10/06/20 Epidural: Time Out Performed: Yes Consents Signed: Procedure Consent and NPO Consent Consent: requested by attending/covering physician, from patient, risks and benefits reviewed and patient agrees to proceed Lumbar Level: L3-L4 Epidural position: sitting Epidural procedure: sterile prep of area (betadine), 1% lidocaine to numb the area (3ml), 18 g needle, neg for paresthesia, test dose given, 1.5% xylocaine 1:200k epi (5ml), 0.2% Ropivacaine bolus ml (5ml), placed PCEA, no systemic response, sterile dressing applied, L.U.D. no apparent complications and 0.2% Ropiavacaine @ mls/hr (10ml/hr)
[2020-10-06] MEDS: oxytocin 30 UNIT/500 ML BAG IV (14:25)
--- NOTE | 2020-10-06 15:51 | ANES.PROC ---
Anesthesia Procedures Procedure/Date: 10/06/20 epidural Procedure Narrative: Called to OB LDR 4 with pt c/o Left side and back pain with epidural. Spoke with pt and agreed to replace. Pt with epidural D/C'd with catheter intact. Epidural: Time Out Performed: Yes Consents Signed: Procedure Consent and NPO Consent Consent: requested by attending/covering physician, from patient, risks and benefits reviewed and patient agrees to proceed Lumbar Level: L4-L5 Epidural position: sitting Epidural procedure: sterile prep of area (betadine), 1% lidocaine to numb the area (3ml), 18 g needle, neg for paresthesia, test dose given, 1.5% xylocaine 1:200k epi (5ml), 0.2% Ropivacaine bolus ml (5ml), placed PCEA, no systemic response, sterile dressing applied, L.U.D. no apparent complications and 0.2% Ropiavacaine @ mls/hr (10ml/hr) Additional Comments: pt given Lidocaine 1%MPF and 100 MCG Fentanyl via epidural
[2020-10-06] MEDS: hyDROXYzine 25 mg Capsule 50 MG PO (17:44)
--- NOTE | 2020-10-06 17:50 | PC.NURSE ---
Left modified renee with right leg in stir up
[2020-10-06] MEDS: ondansetron 2 mg/ML SDV 2 mL 4 MG IVP (20:40)
--- NOTE | 2020-10-06 20:51 | P.HP_ITS ---
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 History of Present Illness Luis Eduardo Hutchins is a 20 year old 1 female Present Details : 1 Para: 0 Date of Last Menstrual Period: 08/31/19 Calculated Date of Delivery: 06/06/20 Gestational Age Based on Last Menstrual Period: 57 Labs GBS: Positive Medications/Allergies Home Medications Medication Instructions Recorded Confirmed Last Taken Type PNV no.[id number] 2 tab PO DAILY 04/21/20 10/06/20 10/05/20 08:00 History [ Gummies] levothyroxine [Euthyrox] 25 mcg PO DAILY 04/21/20 10/05/20 10/05/20 08:00 History Allergies Allergy/AdvReac Type Severity Reaction Status Date / Time sulfamethoxazole Allergy ALGY-Hives Verified 10/06/20 12:20 [From Bactrim] trimethoprim [From Bactrim] Allergy ALGY-Hives Verified 10/06/20 12:20 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: Medical History (Updated 04/29/20 @ 00:01 by ) Hereditary cavernous hemangioma of brain Hypothyroidism Surgical History (Updated 04/21/20 @ 16:06 by Gustavo Baltazar DO) No history of previous surgery Social History (Updated 04/21/20 @ 16:06 by Gustavo Baltazar DO) Smoking and tobacco status: never smoked Alcohol intake: never Vitals/I&O/Wt Last Vital Signs Temp 98.4 F 10/06/20 19:40 Pulse 110 H 10/06/20 20:24 Resp 20 H 10/06/20 19:43 BP 148/82 10/06/20 20:24 Pulse Ox 98 10/06/20 15:53 10/06/20 10/06/20 10/06/20 06:59 14:59 22:59 Intake Total 100 / 100 416.35 / 416.35 90.833 / 507.183 Balance 100 / 100 416.35 / 416.35 90.833 / 507.183 Weight last 48 hrs Weight 175 lb Physical Exam Urinary Catheter Management^: Garcia: Cath Placed During This Visit: yes Reason for Continuing Indwelling Catheter: Required Immobilization for Trauma or Surgery or Anesthesia Urinary Catheter Date of Insertion: 10/06/20 Urinary Catheter Time of Insertion: 14:39 Data : 10/05/20 20:53 10/05/20 20:53 Coding Level of Care Code Acute 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
--- NOTE | 2020-10-06 22:00 | ANES.PROC ---
Anesthesia Procedures Procedure/Date: 10/06/20 labor Procedure Narrative: Pt with pain/pressure noted with contractions. Pt given 2% lidocaine MPF 6ml with 100mcg fentanyl via epidural
[2020-10-06] MEDS: labetalol 5 mg/mL SDV 20mL 20 MG IVP (22:43)
[2020-10-06] MEDS: magnesium sulfate premix 4 GM/100 ML PREMIX IV (22:43)
[2020-10-06] MEDS: magnesium sulfate premix 20 GM/500 ML BAG IV (22:50)
[2020-10-07] VITALS (109 sets, daily range): BP systolic 109–164; BP diastolic 59–104; PULSE 82–187; RESP 15–20; TEMP 36.4–38.1; O2SAT 92–100
[2020-10-07] MEDS: fentaNYL 50 mcg/mL INJ 2mL IV ×3 (00:45→04:40)
[2020-10-07] MEDS: ampicillin 1,000 MG in sodium chloride 0.9% (plus) 50 ML 100 MG IV ×2 (00:50→04:49)
[2020-10-07 05:44] LABS: Magnesium Level (OB Only) 6.5 mg/dL (5.0-7.5)
--- NOTE | 2020-10-07 07:41 | P.HP_ITS ---
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 She was found to have 3+ protein in her urine as well as a protein creatinine ratio of 3. She also had elevated blood pressures intermittently. The blood pressures appear to be strongly related to her pain and would resolve when her pain resolved. As result of that the decision was made to proceed with an induction. Otherwise she had no sy mptoms of preeclampsia. She was placed on Cytotec 25 mcg x 2. She is placed on Pitocin. An amniotomy was performed. She is placed on magnesium. She progressed to a anterior lip where she remained for about 4 hours. I was able to reduce her lip with pushing so we pushed for 45 minutes and noted that the lip had not changed was actually becoming more swollen. As result we elected to proceed with a section. I discussed the risks and with the patient and her significant other. Present Details : 1 Para: 0 Date of Last Menstrual Period: 08/31/19 Calculated Date of Delivery: 06/06/20 Gestational Age Based on Last Menstrual Period: 56 Labs GBS: Positive Review of Systems General: Reports: 10 or more systems reviewed and unremarkable except in HPI and below Const: Reports: fatigue; Denies: fever(s) Eyes: Denies: change in vision Card: Denies: chest pain Musc: Reports: back pain Lex/Lymph: Denies: easy bruising Medications/Allergies Home Medications Medication Instructions Recorded Confirmed Last Taken Type Gummies 2 tab PO DAILY 04/21/20 10/06/20 10/05/20 08:00 History levothyroxine [Euthyrox] 25 mcg PO DAILY 04/21/20 10/05/20 10/05/20 08:00 History ibuprofen 800 mg PO TID #45 tab 10/09/20 Unknown Rx oxycodone-acetaminophen 1 - 2 tab PO Q6H PRN #30 tab 10/09/20 Unknown Rx Allergies Allergy/AdvReac Type Severity Reaction Status Date / Time sulfamethoxazole Allergy ALGY-Hives Verified 10/06/20 12:20 [From Bactrim] trimethoprim [From Bactrim] Allergy ALGY-Hivlow Verified 10/06/20 12:20 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: Medical History Hereditary cavernous hemangioma of brain Hypothyroidism Surgical History No history of previous surgery Social History Smoking and tobacco status: never smoked Alcohol intake: never Vitals/I&O/Wt Last Vital Signs Temp 98.1 F 10/07/20 05:44 Pulse 111 H 10/07/20 07:32 Resp 18 10/07/20 04:40 BP 144/94 10/07/20 07:32 Pulse Ox 98 10/06/20 15:53 10/06/20 10/07/20 10/07/20 22:59 06:59 14:59 Intake Total 201.333 / 617.683 150 / 767.683 Output Total 400 / 400 279 / 679 125 / 125 Balance -198.667 / 217.683 -129 / 88.683 -125 / -125 Weight last 48 hrs Weight 175 lb Physical Exam Const: COMMON NORMALS: patient oriented x3 and alert HENMT: COMMON NORMALS: moist oral mucous membranes HEAD & SCALP: normal to inspection Chest: COMMONS NORMALS: normal inspection of the chest Resp: COMMON NORMALS: clear to auscultation bilaterally AUSCULTATION: clear to auscultation bilaterally Cardio: COMMON NORMALS: regular rate and regular rhythm RATE: regular rate RHYTHM: regular rhythm GI: INSPECTION: Yes normal to inspection and Yes other (Gravid) Extremity: COMMON NORMALS: normal to inspection GENERAL: Yes edema (Trace) Neuro: COMMON NORMALS: patient oriented x3, moves all extremities and no sensory deficits noted SENSORIUM/ORIENTATION: Yes alert Psych: COMMON NORMALS: mental status grossly normal Skin: COMMON NORMALS: no rashes or lesions noted GENERAL SKIN EXAM: no rashes or lesions noted Urinary Catheter Management^: Garcia: Cath Placed During This Visit: yes Reason for Continuing Indwelling Catheter: Required Immobilization for Trauma or Surgery or Anesthesia Urinary Catheter Date of Insertion: 10/06/20 Urinary Catheter Time of Insertion: 14:39 Data : 10/08/20 07:10 10/05/20 20:53 Other Labs: Metabolic panel has been within normal limits except for uric acid of 6.6 and a carbon dioxide which is ranged from 19-22 with a sodium that has ranged from 128-136 her urinalysis demonstrated 3+ protein her protein creatinine ratio was 3. She is Covid unknown. She is GBS positive from our office. Her blood type is O-. A&P Assessment and plan (1) Preeclampsia: Maintain magnesium for approx 24 hour post delivery. Status: Resolved (2) 37 weeks gestation of : Status: Resolved (3) Failure to progress in labor: Proceed with ltcs. Status: Resolved Attestations Medical Necessity Statement*: Anticipate routine and post care as well as preeclamptic care. Coding Level of Care Code Acute Kerrick Kleaner Operator for [facility] Exam Comprehensive Diagnoses Preeclampsia O14.90 37 weeks gestation of Z3A.37 Failure to progress in labor O62.2
[2020-10-07] MEDS: metoclopramide 5 mg/mL SDV 2 mL 10 MG IVP (07:54)
[2020-10-07] MEDS: famotidine 20 mg/2 mL INJ IVP (07:54)
[2020-10-07] MEDS: citric acid-sodium citrate 30 mL UDC PO (07:57)
--- NOTE | 2020-10-07 08:02 | P.ANESUD_ITS ---
Pre-Anesthetic Update Pre-Anesthetic Assessment: Date of Surgery/Procedure: 10/07/20 Preop Sarah gnosis: labor Any changes to Pre-Anesthetic Assessment?: Yes Changes from Pre-Anesthetic Assessment: FTP, stat c/s Labs Last 48hrs: Laboratory Results - last 48 hr 10/05/20 10/05/20 10/05/20 18:00 18:00 18:40 WBC RBC Hgb Hct MCV MCH MCHC RDW Plt Count MPV Neut % (Auto) Lymph % (Auto) [place] % (Auto) Eos % (Auto) Baso % (Auto) Neut # (Auto) Lymph # (Auto) [place] # (Auto) Eos # (Auto) Baso # (Auto) Nucleated RBC % (a uto) Nucleated RBCs # Sodium Potassium Chloride Carbon Dioxide Anion Gap BUN Creatinine GFR Calculation Glucose Calculated Osmolal ity Uric Acid Calcium Magnesium Total Bilirubin AST ALT Alkaline Phosphata se Total Protein Albumin Globulin Insulin-like GF I Cancelled Urine Color Yellow Urine Appearance Sl cloudy A Urine pH 6.5 Ur Specific Gravit y 1.010 Urine Protein 3+ H Urine Glucose (UA) Norm Urine Ketones Negative Urine Blood Neg Urine Nitrate Negative Urine Bilirubin Neg Urine Urobilinogen Norm Ur Leukocyte Leona ase Negative Urine RBC 0-4 H Urine WBC 0-4 H Ur Squamous Epith Cells 40-55 H Amorphous Sediment Not Reportable Urine Bacteria 2+ H U Random Total Pro tein 762 Urine Creatinine 193 Protein/Creatinin Ratio 3.95 10/05/20 10/05/20 10/07/20 20:53 20:53 04:45 WBC 17.7 H RBC 4.14 Hgb 11.8 Hct 36.4 L MCV 87.9 MCH 28.5 MCHC 32.4 RDW 13.2 Plt Count 288 MPV 12.1 H Neut % (Auto) 71.8 Lymph % (Auto) 20.6 [place] % (Auto) 6.0 Eos % (Auto) 0.6 Baso % (Auto) 0.3 Neut # (Auto) 12.69 H Lymph # (Auto) 3.6 [place] # (Auto) 1.1 H Eos # (Auto) 0.1 Baso # (Auto) 0.1 Nucleated RBC % (a uto) 0 Nucleated RBCs # 0.0 Sodium 128 L Potassium 4.1 Chloride 98 Carbon Dioxide 19 L Anion Gap 15.1 BUN 12 Creatinine 0.8 GFR Calculation 89.7 L Glucose 69 Calculated Osmolal ity 264 L Uric Acid 6.6 H Calcium 8.7 Magnesium 6.5 Total Bilirubin 0.7 AST 23 ALT 12 Alkaline Phosphata se 129 H Total Protein 6.2 L Albumin 3.1 L Globulin 3.1 Insulin-like GF I Urine Color Urine Appearance Urine pH Ur Specific Gravit y Urine Protein Urine Glucose (UA) Urine Ketones Urine Blood Urine Nitrate Urine Bilirubin Urine Urobilinogen Ur Leukocyte Leona ase Urine RBC Urine WBC Ur Squamous Epith Cells Amorphous Sediment Urine Bacteria U Random Total Pro tein Urine Creatinine Protein/Creatinin Ratio Vitals: Temperature 98.1 F 10/07/20 05:44 Temperature Source Oral 10/05/20 17:55 Pulse Rate 120 H 10/07/20 07:45 Respiratory Rate 18 10/07/20 04:40 Respiratory Effort 10/07/20 04:40 Respiratory Depth Normal 10/07/20 04:40 Respiratory Patter n 10/07/20 04:40 Blood Pressure 145/78 10/07/20 07:45 Pulse Oximetry 98 10/06/20 15:53 Oxygen Delivery Me thod 10/06/20 00:21 Exam: Pre-Anes Outpt Exam: alert, oriented x 3, clear to auscultation bilaterally and regular rate & rhythm Cardiac Studies: No Data to Display
[2020-10-07 08:39] LABS: Thyroid Stimulating Hormone 6.22 uIU/mL (0.27-4.20)
--- NOTE | 2020-10-07 09:37 | PM.OP ---
Operative Report Date of procedure: October 07, 2020 Pre-op Diagnosis: 1. 37-week gestation 2. Preeclampsia 3. Failure to progress Post-op diagnosis: same Procedure Done: Low transverse section Specimens removed/disposition: 1. Male with a weight of 6 pounds 4 ounces and Apgars of 2 6 and 9 2. Placenta with a three-vessel cord delivered intact Surgeon: Spencer Linder Anesthesia: General Estimated blood loss (mL): 1,000 Complications: None Condition: stable Disposition: floor (OB) Procedure: The patient was brought back to the operating room where she was prepped and draped in usual sterile fashion. General anesthesia was performed. A lower transverse skin incision was then made with a #10 blade. I then dissected down to the underlying subcutaneous tissue until arriving at the prerectal fascia. The fascia was then nicked with the scalpel bilaterally. The fascial incisions were then carried laterally with Cabral scissors. Attention was then turned to the superior aspect of the incision which was grasped with kochers and tented up away from the underlying rectus abdominis muscles. The muscles were then dissected away from the fascia manually, and later with Cabral scissors. Attention was then turned to the inferior aspect of the incision, and the fascia was dissected away from the underlying muscle in similar fashion. The rectus abdominis muscles were then spread manually. The peritoneum was entered manually. Excellent visualization of the uterus was noted. A lower transverse uterine incision was then made with a #10 blade. Upon arriving at the intrauterine cavity, the uterine incision was then extended manually. The infant was noted to be in vertex position. The baby was delivered without difficulty. There was no meconium. There was no nuchal cord. The cord was cut and clamped. The baby was then handed to Dr. Zhang for further care. The placenta was removed intact. The uterus was externalized. The intrauterine cavity was cleansed of any remaining debris. The uterine incision was reapproximated in 2 layers. The first layer was performed with 0 Vicryl in a running locked stitch. The second layer was an imbricating stitch also using 0 Vicryl. The uterus was replaced into the abdomen. The peritoneum was then irrigated with warm saline. I reexamined the uterine incision and found it to be hemostatic. The rectus abdominis muscles were then reapproximated using 0 Vicryl in a running stitch. The fascia was then reapproximated using 0 Vicryl in running stitch. The subcutaneous tissue was also reapproximated using 0 Vicryl in running stitch. The skin was reapproximated using jaquan. A sterile dressing was placed. All counts were correct x2. Both the mother and baby were in stable condition.
--- NOTE | 2020-10-07 10:22 | ANE.PACU2 ---
Inpatient post-anesthesia follow up: Airway intact: Yes Vital signs: Temperature 97.9 F Pulse Rate 88 Respiratory Rate 15 Blood Pressure 148/89 Pulse Oximetry 99 Oxygen Delivery Me thod Nasal Cannula Oxygen Flow Rate 2 Fraction of Inspir ed Oxygen Hydration adequate: Yes Nausea and vomiting: No Pain level: 2 Mental status: Baseline
[2020-10-07] MEDS: magnesium sulfate premix 20 GM/500 ML BAG IV (10:36)
[2020-10-07] MEDS: morphine 4 mg/mL SDV 1 mL IVP (11:45)
--- NOTE | 2020-10-07 13:10 | PC.RESP ---
Therapist walked [facility] to perform and IS with patient. Nurse stated that she is still in and out of anethesia. Therapist asked if they could come back at a later time when mom wasnt so out of it? Nurse Nia stated, yes, that would be fine. Therapist placed IS on nursing station desk and stated, Okay, thank you!
[2020-10-07] MEDS: lanolin oint 7 gm 1 APPLIC TOPICAL (14:49)
--- NOTE | 2020-10-07 15:18 | PC.NURSE ---
COVID not detected per lab personnel.
[2020-10-07 15:41] LABS: Magnesium Level (OB Only) 7.3 mg/dL (5.0-7.5)
[2020-10-07] MEDS: docusate sodium 100 mg Capsule PO (18:06)
[2020-10-07] MEDS: ferrous sulfate EC 325 mg Tablet PO (18:06)
[2020-10-07 18:13] LABS: Coronavirus Test Green County Not Detected
[2020-10-07 23:51] LABS: Hematocrit 21.3 % (37.0-47.0); Hemoglobin 6.7 g/dL (11.5-15.3); Mean Corpuscular HGB Conc 31.5 g/dL (30.0-36.0); Mean Corpuscular Hemoglobin 28.5 pg (28.0-34.0); Mean Corpuscular Volume 90.6 fL (81-99); Mean Platelet Volume 11.4 fL (7.4-10.4); Platelet Count 235 10^3/cmm (130-400); Red Blood Count 2.35 10^6/uL (4.1-5.3); Red Cell Distribution Width 14.1 % (12.1-15.1); White Blood Count 23.9 10^3/uL (4.0-10.0)
[2020-10-08] VITALS (21 sets, daily range): BP systolic 118–157; BP diastolic 69–90; PULSE 83–113; RESP 15–18; TEMP 36.5–37.1; O2SAT 96
[2020-10-08] MEDS: morphine 4 mg/mL SDV 1 mL IVP (01:24)
--- NOTE | 2020-10-08 07:14 | PM.OBGYPN ---
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 Her bleeding has been within normal limits. She has had some difficulty tolerating the pain. She has tolerated the magnesium pretty well. She breast-fed multiple times. The patient has not had flatus. Labor: Station: 0 Amniotic Membrane Status: Ruptured Monitor Mode: None Contraction Pattern: Irregular Status: Category II Vitals/I&O/Wt Last Vital Signs Temp 97.7 F 10/08/20 04:47 Pulse 103 H 10/08/20 06:29 Resp 15 10/08/20 05:26 BP 126/73 10/08/20 06:29 Pulse Ox 98 10/07/20 14:38 10/07/20 10/08/20 10/08/20 22:59 06:59 14:59 Intake Total 506 / 3918.833 Output Total 905 / 2244 1165 / 3409 Balance -399 / 1674.833 -1165 / 509.833 Physical Exam Narrative: EXAM NARRATIVE: She is in no acute distress Lungs are clear auscultation bilaterally Her heart has a regular rate and rhythm Her fundus is below the umbilicus and firm Her dressing is clean, dry and intact Her extremities have trace edema Urinary Catheter Management^: Garcia: Cath Placed During This Visit: yes, but has since been removed by the nurse Reason for Continuing Indwelling Catheter: Perioperative Use in Selected Surgeries Urinary Catheter Date of Insertion: 10/06/20 Urinary Catheter Time of Insertion: 14:39 Date Urinary Catheter Removed: 10/07/20 Time Urinary Catheter Discontinued: 06:25 Data : 10/08/20 07:10 10/05/20 20:53 A&P Assessment and plan (1) Status post : We will stop magnesium this morning. We will check a CBC since she had a significant drop in her hemoglobin since surgery. Will low remove her Garcia if her urine output remains good. Hopefully we can advance her diet later today as well. If all goes well and hopefully she go home tomorrow. 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
[2020-10-08 07:20] LABS: Basophils % 0.2 %; Eosinophils % 0.1 %; Hematocrit 21.3 % (37.0-47.0); Hemoglobin 6.8 g/dL (11.5-15.3); Lymphocytes # 3.2 10^3/uL (0.8-4.8); Lymphocytes % 16.3 %; Mean Corpuscular HGB Conc 31.9 g/dL (30.0-36.0); Mean Corpuscular Hemoglobin 29.2 pg (28.0-34.0); Mean Corpuscular Volume 91.4 fL (81-99); Mean Platelet Volume 11.3 fL (7.4-10.4); Monocytes % 10.2 %; Neutrophils # 14.15 10^3/uL (1.8-7.7); Neutrophils % 72.2 %; Nucleated Red Blood Cells % 0.1 %; Platelet Count 247 10^3/cmm (130-400); Red Blood Count 2.33 10^6/uL (4.1-5.3); Red Cell Distribution Width 14.3 % (12.1-15.1); White Blood Count 19.6 10^3/uL (4.0-10.0)
[2020-10-08] MEDS: prenatal vitamin Capsule 1 CAP PO (07:49)
[2020-10-08] MEDS: levothyroxine 25 mcg Tablet PO (07:50)
[2020-10-08] MEDS: ferrous sulfate EC 325 mg Tablet PO ×2 (07:50→17:44)
[2020-10-08] MEDS: docusate sodium 100 mg Capsule PO ×2 (09:27→17:44)
[2020-10-08] MEDS: ibuprofen 800 mg tablet PO ×3 (09:27→21:21)
--- NOTE | 2020-10-08 15:02 | PC.NURSE ---
Patient reports dizziness is better.
[2020-10-08] MEDS: oxyCODONE-APAP 5-325 mg Tablet PO (21:20)
[2020-10-09] VITALS (9 sets, daily range): BP systolic 140–146; BP diastolic 76–88; PULSE 88–127; RESP 16; TEMP 36.3–36.7; O2SAT 97–98
[2020-10-09] MEDS: oxyCODONE-APAP 5-325 mg Tablet PO (05:46)
--- NOTE | 2020-10-09 06:52 | P.DS_ITS ---
Discharge Providers SIEVE MAKER Date of Admission: 10/05/20 20:27 Date of Discharge: 10/09/20 Attending Provider at Admission: Spencer Linder MD Attending Provider at Discharge: Spencer Linder MD Primary Care Provider: Spencer Linder MD Diagnoses at Discharge Discharge Diagnosis (1) Status post : Status: Acute (2) Preeclampsia: Status: Acute (3) 37 weeks gestation of : Status: Acute Reason for Visit Reason for Visit: High Blood Pressure Hospital Course Hospital Course The patient is a 20-year-old 1 who presented to the hospital as a triage and was noted to have elevated blood pressure and 3+ protein in her urine. A follow-up protein creatinine ratio demonstrated a ratio of greater than 3. The decision was made to proceed with an induction. She was placed on Cytotec 25 mcg x 2. Amniotomy was performed. Pitocin was initiated. She progressed an anterior lip, and stayed in anterior lip for about 4 hours. An effort was made to push through the lip after became more flexible, but no significant progress was made after 45 minutes of pushing. We then proceeded with a lower transverse section. It was unremarkable. Her course was also relatively unremarkable. She did have some difficulty with pain control. But the final 24 hours of her hospital stay her pain was well controlled. Her diet was advanced and she tolerated it well. She passed flatus. Her bleeding was within normal limits. She breast-fed her baby. The nurses were heavily involved in helping her breast-feed her child throughout her stay in the hospital. At the end of her hospital stay she did begin feeding the baby some formula. Information Peripartum Data: Infant Delivery Method: Physical Exam Narrative: EXAM NARRATIVE: She is in no acute distress Lungs are clear auscultation bilaterally Her heart has a regular rate and rhythm Her fundus is below the umbilicus and firm Her dressing is clean, dry and intact Her extremities have trace edema Urinary Catheter Management^: Garcia: Cath Placed During This Visit: yes, but has since been removed by the nurse Reason for Continuing Indwelling Catheter: Decision to DC Catheter Urinary Catheter Date of Insertion: 10/06/20 Urinary Catheter Time of Insertion: 14:39 Date Urinary Catheter Removed: 10/08/20 Time Urinary Catheter Discontinued: 11:05 Discharge Data Data Completed and Pending: Labs from last 24 hours 10/08/20 07:10 WBC 19.6 H RBC 2.33 L Hgb 6.8 L Hct 21.3 L MCV 91.4 MCH 29.2 MCHC 31.9 RDW 14.3 Plt Count 247 MPV 11.3 H Neut % (Auto) 72.2 Lymph % (Auto) 16.3 [place] % (Auto) 10.2 Eos % (Auto) 0.1 Baso % (Auto) 0.2 Neut # (Auto) 14.15 H Lymph # (Auto) 3.2 [place] # (Auto) 2.0 H Eos # (Auto) 0.0 Baso # (Auto) 0.0 Nucleated RBC % (a uto) 0.1 Nucleated RBCs # 0.0 Vitals: Last Vital Signs Temp 97.9 F 10/09/20 06:17 Pulse 88 10/09/20 06:15 Resp 16 10/09/20 05:46 BP 145/88 10/09/20 06:15 Pulse Ox 96 10/08/20 10:44 Discharge Plan Discharge Patient Disposition: Home Condition: Stable Prescriptions: New oxycodone-acetaminophen 5-325 mg Tablet 1 - 2 tab PO Q6H PRN (Reason: Moderate To Severe Pain) Qty: 30 RF: 0 ibuprofen 800 mg Tablet 800 mg PO TID Qty: 45 RF: 0 Continued levothyroxine [Euthyrox] 25 mcg tablet 25 mcg PO DAILY RF: 0 Gummies 400 mcg-35 mg- 25 mg-5 mg Tablet,Chewable 2 tab PO DAILY RF: 0 Discharge Orders: Discharge Order (Routine); Ordered 10/09/20 Ordered By: Spencer Linder Referrals: Spencer Linder MD [Primary Care Provider] - 1-3 days Discharge Diet: Regular Discharge Activity: Limit activity as instructed Patient Instructions: Levothyroxine (By mouth), Vitamins (By mouth), Breast Care for the Breast Feeding Mother (DC), OB - Wilmer, OB Discharge Report, OB Food/Drug Interaction Guide, OB Home Care, OB Proud Parent Packet Discharge Attestations SIEVE MAKER Time Spent in Discharge Care*: less than 30 min Coding Level of Care Code Acute Vp Respiratory for Chg Fwd Diagnoses Status post Z98.891 Preeclampsia O14.90 37 weeks gestation of Z3A.37
[2020-10-09] MEDS: levothyroxine 25 mcg Tablet PO (07:23)
[2020-10-09] MEDS: ferrous sulfate EC 325 mg Tablet PO (07:23)
[2020-10-09] MEDS: prenatal vitamin Capsule 1 CAP PO (07:23)
[2020-10-09] MEDS: ibuprofen 800 mg tablet PO (09:44)
[2020-10-09] MEDS: docusate sodium 100 mg Capsule PO (09:44)
--- NOTE | 2020-10-09 12:25 | PC.NURSE ---
call placed to [facility] who confirms they have received both prescriptions for patient and are filling the oxycodone at this time.
== END 2020-10-09 14:20 | disposition home or self-care (01) | DRG 788 ==
LOC: OPOB 20:27 → OBGYN 20:27
PROVIDERS: Admitting Provider Family Medicine; PCP Family Medicine; Visit Provider Family Medicine
PROC: 10D00Z1 Extraction of Products of Conception, Low, Open Approach (ICD-10-PCS; CPT 59514; principal; 2020-10-07 08:15)
DX: O14.94 Unspecified pre-eclampsia, complicating childbirth (principal); O99.284 Endocrine, nutritional and metabolic diseases complicating childbirth; E03.9 Hypothyroidism, unspecified; O99.344 Other mental disorders complicating childbirth; F41.1 Generalized anxiety disorder; O61.0 Failed medical induction of labor; Z3A.37 37 weeks gestation of pregnancy; Z37.0 Single live birth
CPT/HCPCS: 12345; 36415; 51702; 59025; 59409; 80053; 81001; 82570; 83735; 83986; 84156; 84443; 84550; 85025; 85027; 85460; 86850; 86900; 87635; 90384; 99211; J0131; J0290; J0330; J1100; J2270; J2274; J2405; J2704; J2765; J2795; J3010; J3475; J3490

== ENCOUNTER 2021-09-22 07:10 | Emergency (ER) | payer MEDICAID, SELFPAY ==
--- NOTE | 2021-09-22 07:28 | XRR_ITS ---
PROCEDURE INFORMATION: Exam: XR Chest Exam date and time: 09/22/2021 7:28 AM Age: 21 years old Clinical indication: Cough and shortness of breath; Additional info: Cough, SOB TECHNIQUE: Imaging protocol: XR of the chest. Views: 1 view. Total images: 1 COMPARISON: CR XR chest 1V portable [id number] 09/23/2019 7:32 AM FINDINGS: Lungs: Unremarkable. No consolidation. Pleural spaces: Unremarkable. No pleural effusion. No pneumothorax. Heart/Mediastinum: Unremarkable. No cardiomegaly. Bones/joints: Unremarkable. XR/XR chest 1V portable [id number] IMPRESSION: No acute findings.
[2021-09-22 07:42] VITALS: BP 117/79; PULSE 100; RESP 18; TEMP 37; O2SAT 97; BMI 25.4
--- NOTE | 2021-09-22 07:59 | ED_ITS ---
HPI - URI/Sore Throat General: Chief Complaint: General Medical Stated Complaint: COUGH, SOB Time Seen by Provider: 09/22/21 07:11 Source: patient Mode of arrival: ambulatory Limitations: no limitations History of Present Illness: HPI Narrative: Patient is a 21-year-old female presents to ED today with a complaint of low-grade fevers, cough, nasal congestion, body aches over the past 3 days. Patient states her son has been sick for several days with similar symptoms. No other known sick contacts. She is unvaccinated for COVID. Denies vomiting or diarrhea. No abdominal pain. No rash. No painful or difficulty swallowing. MD elicited complaint: fever, cough, nasal congestion and other (body aches) Onset (ago): day(s) Consistency: constant Description of mucous: clear Able to tolerate fluids by mouth: Yes Context: sick contacts (son) Associated symptoms: Reports fever(s) (subjective, low grade) and nasal congestion; Deny abdominal pain, chest pain, diarrhea, ear or mastoid pain, headache(s), nausea or vomiting Treatments prior to arrival: none Review of Systems Const: Reports: fever(s) (subjective, low grade) and body aches Eyes: Denies: change in vision, blurry vision, photophobia, eye discharge or eye redness ENMT: Reports: nasal discharge and nasal congestion; Denies: throat pain, odynophagia or ear or mastoid pain Card: Denies: chest pain Resp: Reports: non-productive cough and chest congestion; Denies: dyspnea, wheezing or hemoptysis GI: Denies: abdominal pain, nausea, vomiting or diarrhea Musc: Denies: neck pain Skin/Breast: Denies: rash Neuro: Denies: headache(s) PFS ED PFSH: Medical History Hereditary cavernous hemangioma of brain Hypothyroidism Surgical History No history of previous surgery Social History Smoking and tobacco status: never smoked Alcohol intake: never Female Reproductive History: Date of last menstrual period: 08/31/19 Physical Exam Const: COMMON NORMALS: no acute distress, average body habitus, patient oriented x3, no limitations, healthy appearing, alert and well nourished GENERAL APPEARANCE: cooperative ORIENTATION/CONSCIOUSNESS: Yes awake, Yes oriented to person, Yes oriented to place and Yes oriented to time HENMT: COMMON NORMALS: normocephalic and atraumatic HEAD & SCALP: normocephalic and atraumatic Resp: COMMON NORMALS: normal respiratory effort and clear to auscultation bilaterally AUSCULTATION: clear to auscultation bilaterally Cardio: COMMON NORMALS: regular rate and regular rhythm RATE: regular rate RHYTHM: regular rhythm Extremity: COMMON NORMALS: normal to inspection Neuro: COMMON NORMALS: patient oriented x3 SENSORIUM/ORIENTATION: Yes alert, Yes oriented to person, Yes oriented to place and Yes oriented to time Skin: COMMON NORMALS: no rashes or lesions noted GENERAL SKIN EXAM: no rashes or lesions noted Course Vital Signs: Vital signs: Vital Signs Temperature 98.6 F 09/22/21 07:42 Pulse Rate 100 09/22/21 07:42 Respiratory Rate 18 09/22/21 07:42 Blood Pressure 117/79 09/22/21 07:42 Pulse Oximetry 97 09/22/21 07:42 MDM - URI/Sore Throat MDM Narrative: Medical decision making narrative: Patient appears in no acute distress. Her vital signs are perfect. CXR is normal. She did test positive for COVID via rapid antigen. Patient has no significant underlying PMH for progression to severe disease. Recommend conservative treatment at home. Strict return to ED precautions given. Lab Data: Attestation: I reviewed the patient's lab results. Labs: Lab Results 09/22/21 08:00 SARS-CoV-2 Ag (Rap id) Positive H (Negative) Imaging Data^: CXR: Radiologist's impression: [address] [address] XRay Report Signed Patient: Luis Eduardo Hutchins Unit #: [id number] : 2000 Age/Sex: 21 / F ADM Date: 09/22/21 Loc: ER Room/Bed: Attending Dr: Ordering Provider/Ordering MD: Joan Smallwood Date of Service: 09/22/21 Procedure(s): XR chest 1V portable [id number] Accession Number(s): [id number] Report Number: [id number] PROCEDURE INFORMATION: Exam: XR Chest Exam date and time: 09/22/2021 7:28 AM Age: 21 years old Clinical indication: Cough and shortness of breath; Additional info: Cough, SOB TECHNIQUE: Imaging protocol: XR of the chest. Views: 1 view. Total images: 1 COMPARISON: CR XR chest 1V portable [id number] 09/23/2019 7:32 AM FINDINGS: Lungs: Unremarkable. No consolidation. Pleural spaces: Unremarkable. No pleural effusion. No pneumothorax. Heart/Mediastinum: Unremarkable. No cardiomegaly. Bones/joints: Unremarkable. XR/XR chest 1V portable [id number] IMPRESSION: No acute findings. Dictated By: Lenard Snell MD Signed By: Lenard Snell MD Signed Date/Time: 09/22/21832 DD/ 7 Discharge Plan Discharge Patient Disposition: Home Clinical Impression: COVID-19 Condition: Stable Prescriptions: No Action desogestrel-ethinyl estradiol [Apri] 0.15-0.03 mg tablet 1 tab PO DAILY RF: 0 levothyroxine [Euthyrox] 25 mcg tablet 25 mcg PO DAILY RF: 0 Gummies 400 mcg-35 mg- 25 mg-5 mg Tablet,Chewable 2 tab PO DAILY RF: 0 ibuprofen 800 mg Tablet 800 mg PO TID Qty: 45 RF: 0 oxycodone-acetaminophen 5-325 mg Tablet 1 - 2 tab PO Q6H PRN (Reason: Moderate To Severe Pain) Qty: 30 RF: 0 Discharge Orders: Discharge ED (Routine); Ordered 09/22/21 Ordered By: Joan Smallwood Referrals: Sepncer Linder MD [Primary Care Provider] - Patient Instructions: COVID-19 (Coronavirus Disease 2019) (ED) Activity Restrictions/Additional Instructions: As we discussed you tested positive for COVID-19. You have been given instructions on quarantine precautions. You may return to the emergency department for severe shortness of breath or difficulty breathing. Stand Alone Forms: Work/School Release Coding Level of Care Code ED Delivery Specialist for Parvin Fwd Exam Detailed
[2021-09-22 08:42] LABS: SARS Covid-2 Antigen Positive (Negative)
== END 2021-09-22 09:46 | disposition home or self-care (01) ==
PROVIDERS: Emergency Provider Physician Assistant; PCP Family Medicine
DX: U07.1 COVID-19 (principal)
CPT/HCPCS: 71045; 87426; 99281

== ENCOUNTER 2022-02-24 09:43 | Outpatient (CLI) | payer MEDICAID, SELFPAY | END 2022-02-24 09:44 | disposition home or self-care (01) | LOC: LAB 09:47 | PROVIDERS: PCP Family Medicine; Visit Provider Family Medicine | DX: O03.9 Complete or unspecified spontaneous abortion without complication (principal) | CPT/HCPCS: 84702 ==

== ENCOUNTER 2022-02-26 15:33 | Outpatient (CLI) | payer MEDICAID, SELFPAY | END 2022-02-26 15:34 | disposition home or self-care (01) | PROVIDERS: PCP Family Medicine; Visit Provider Family Medicine | DX: O03.9 Complete or unspecified spontaneous abortion without complication (principal) | CPT/HCPCS: 84702 ==

== ENCOUNTER 2022-04-01 21:58 | Emergency (ER) | payer MEDICAID, SELFPAY ==
[2022-04-01 22:00] VITALS: BP 119/81; PULSE 85; RESP 18; TEMP 36.6; O2SAT 100
--- NOTE | 2022-04-01 22:05 | USR_ITS ---
PROCEDURE INFORMATION: Exam: US Nonobstetric Pelvis; Complete Exam date and time: 04/01/2022 10:59 PM Age: 21 years old Clinical indication: Other: Heavy vaginal bleeding 3 weeks S/P miscarriage; Patient HX: Miscarriage 3 weeks ago. C/O heavy continuous vaginal bleeding, elevated wbc = 1.59 TECHNIQUE: Imaging protocol: Transabdominal pelvic nonobstetric ultrasound. Complete exam. Real time ultrasound with image documentation. COMPARISON: US OB >= 14 weeks fetus [id number] 06/13/2020 8:25 AM FINDINGS: Uterus: Heterogeneous thickened endometrium measuring up to 2.3 cm suspicious for retained products of conception along with blood products, please correlate clinically. Right ovary/adnexa: Ovary is normal. No mass. Normal blood flow. Left ovary/adnexa: Ovary is normal. No mass. Normal blood flow. Intraperitoneal space: No intraperitoneal fluid. Urinary bladder: Normal. US/US OB <= 14 weeks fetus [id number] IMPRESSION: Heterogeneous thickened endometrium measuring up to 2.3 cm suspicious for retained products of conception along with blood products, please correlate clinically.
--- NOTE | 2022-04-01 22:12 | W.ED.FEMALGU ---
HPI - Female Genitourinary General: Chief complaint: Vaginal Bleeding Stated complaint: heavy vaginal bleeding Time Seen by Provider: 04/01/22 22:04 Source: patient Mode of arrival: ambulatory Limitations: no limitations History of Present Illness: 21-year-old female who states she had a miscarriage 3 weeks ago. States was given methotrexate at that time states that she did continue to have some bleeding and her PCP had started her on control on Thursday states that today she has had increased bleeding passing blood clots and having lower abdominal cramping states her cramping is 6 out of 10. She denies any vomiting denies any passing out denies any worsening improving factors. Associated symptoms: Deny abdominal pain, headache(s) or nausea Date of Last Menstrual Period: 08/31/19 Review of Systems Const: Denies: fever(s), chills, body aches or change in appetite Eyes: Denies: blurry vision or eye discomfort ENMT: Denies: throat pain or dental pain Card: Denies: chest pain Resp: Denies: dyspnea GI: Denies: abdominal pain, nausea, vomiting or diarrhea : Reports: vaginal bleeding; Denies: dysuria Musc: Denies: neck pain or back pain Skin/Breast: Denies: rash Neuro: Denies: headache(s) Psych: Denies: depression Lex/Lymph: Denies: easy bruising All/Imm: Denies: urticaria PFSH ED PFSH: Medical History Hereditary cavernous hemangioma of brain Hypothyroidism Surgical History No history of previous surgery Social History Smoking and tobacco status: never smoked Alcohol intake: never Female Reproductive History: Date of last menstrual period: 08/31/19 Physical Exam Const: COMMON NORMALS: no acute distress, patient oriented x3 and healthy appearing HENMT: COMMON NORMALS: normocephalic and atraumatic HEAD & SCALP: normocephalic and atraumatic Eye: COMMON NORMALS: Equal, round and reactive pupils present and EOMs intact bilaterally PUPIL: Yes Equal, round and reactive pupils present Neck/C-Spine: COMMON NORMALS: full ROM and supple Chest: COMMONS NORMALS: normal inspection of the chest and normal palpation of entire chest wall Resp: COMMON NORMALS: normal respiratory effort, No retractions, No use of accessory muscles and clear to auscultation bilaterally AUSCULTATION: clear to auscultation bilaterally Cardio: COMMON NORMALS: regular rate, regular rhythm and No murmurs present (Cardio) RATE: regular rate RHYTHM: regular rhythm GI: COMMON NORMALS: Normal to inspection, nondistended, normoactive bowel sounds present, Soft to palpation, non-tender and no masses PALPATION: Yes Soft to palpation Extremity: COMMON NORMALS: normal to inspection and full ROM Neuro: COMMON NORMALS: patient oriented x3, moves all extremities and no focal motor deficits Psych: COMMON NORMALS: mental status grossly normal, Normal thought process present and cooperative THOUGHT PROCESS: Normal thought process present Skin: COMMON NORMALS: no rashes or lesions noted and no wounds GENERAL SKIN EXAM: no rashes or lesions noted Course Vital Signs: Vital signs: Vital Signs Temperature 97.8 F 04/01/22 22:00 Pulse Rate 85 04/01/22 22:00 Respiratory Rate 22 H 04/01/22 22:43 Blood Pressure 119/81 04/01/22 22:00 Pulse Oximetry 100 04/01/22 22:00 MDM - Female Medical Decision Making Patient presents here with vaginal bleeding and did a pelvic exam here she had no clots only a small amount of blood in her vaginal vault no signs of large bleeding her hemoglobin here and blood pressure been normal ultrasound did show possible retained products I did call Dr. Linder she has appointment with him tomorrow we will give her dose of misoprostol here and she is to follow-up with him tomorrow as scheduled she is return if worsening she understands agrees to plan. Lab Data : 04/01/22 22:40 04/01/22 22:40 Radiology Impressions Ultrasound 04/01/22 22:05 IMPRESSION: Heterogeneous thickened endometrium measuring up to 2.3 cm suspicious for retained products of conception along with blood products, please correlate clinically. Laboratory Results WBC 15.0 10^3/uL (4.0-10.0) H 04/01/22 22:40 RBC 4.12 10^6/uL (4.1-5.3) 04/01/22 22:40 Hgb 12.1 g/dL (11.5-15.3) 04/01/22 22:40 Hct 34.1 % (37.0-47.0) L 04/01/22:40 MCV 82.8 fl (81-99) 04/01/22:40 MCH 29.4 pg (28.0-34.0) 04/01/22:40 MCHC 35.5 g/dL (30.0-36.0) 04/01/22:40 RDW 13.1 % (12.1-15.1) 04/01/22:40 Plt Count 406 10^3/cmm (130-400) H 04/01/22:40 MPV 9.6 fL (7.4-10.4) 04/01/22:40 Neut % (Auto) 72.5 % 04/01/22:40 Lymph % (Auto) 17.8 % 04/01/22:40 Blair % (Auto) 7.6 % 04/01/22:40 Eos % (Auto) 1.2 % 04/01/22:40 Baso % (Auto) 0.4 % 04/01/22:40 Neut # (Auto) 10.86 10^3/uL (1.8-7.7) H 04/01/22:40 Lymph # (Auto) 2.7 10^3/uL (0.8-4.8) 04/01/22:40 Blair # (Auto) 1.1 10^3/uL (0.2-0.9) H 04/01/22:40 Eos # (Auto) 0.2 10^3/uL (0.0-0.8) 04/01/22:40 Baso # (Auto) 0.1 10^3/uL (0.0-0.1) 04/01/22:40 Nucleated RBC % (auto) 0 % 04/01/22:40 Nucleated RBCs # 0.0 /100WBC 04/01/22 22:40 Sodium 138 mmol/L (136-145) 04/01/22:40 Potassium 3.8 mmol/L (3.5-5.1) 04/01/22:40 Chloride 106 mmol/L (98-107) 04/01/22 22:40 Carbon Dioxide 21 mmol/L (22-29) L 04/01/22 22:40 Anion Gap 14.8 (5-19) 04/01/22 22:40 BUN 10 mg/dL (6-20) 04/01/22 22:40 Creatinine 0.6 mg/dL (0.5-0.9) 04/01/22 22:40 GFR Calculation 123.9 mL/min (90-130) 04/01/22 22:40 Glucose 104 mg/dL (65-115) 04/01/22 22:40 Calculated Osmolality 285 mOsm/kg (285-295) 04/01/22 22:40 Calcium 8.9 mg/dL (8.5-10.5) 04/01/22 22:40 Total Bilirubin 0.5 mg/dL (0.15-1.2) 04/01/22 22:40 AST 15 U/L (0-32) 04/01/22 22:40 ALT 12 U/L (0-33) 04/01/22 22:40 Alkaline Phosphatase 87 IU/L (35-105) 04/01/22 22:40 Total Protein 7.1 g/dL (6.6-8.7) 04/01/22 22:40 Albumin 4.1 g/dL (3.5-5.2) 04/01/22 22:40 Globulin 3.0 g/dL (1.3-4.6) 04/01/22 22:40 Discharge Plan Discharge Patient Disposition: Home Clinical Impression: Vaginal bleeding, Miscarriage Condition: Stable Prescriptions: New hydrocodone-acetaminophen 5-325 mg tablet 1 tab PO Q6H PRN (Reason: pain) Qty: 14 0RF ondansetron 4 mg tablet,disintegrating 4 mg PO Q6H PRN (Reason: nausea and vomiting) Qty: 14 0RF No Action desogestrel-ethinyl estradiol [Apri] 0.15-0.03 mg tablet 1 tab PO DAILY 0RF levothyroxine [Euthyrox] 25 mcg tablet 25 mcg PO DAILY 0RF Gummies 400 mcg-35 mg- 25 mg-5 mg Tablet,Chewable 2 tab PO DAILY 0RF ibuprofen 800 mg Tablet 800 mg PO TID Qty: 45 0RF oxycodone-acetaminophen 5-325 mg Tablet 1 - 2 tab PO Q6H PRN (Reason: Moderate To Severe Pain) Qty: 30 0RF Discharge Orders: Discharge ED (Routine); Ordered 04/02/22 Ordered By: Anusha Scott Referrals: Spencer Linder MD [Primary Care Provider] - 1-3 days Discharge Diet: Advance as tolerated Discharge Activity: Resume usual activity Patient Instructions: Miscarriage (ED), Opioid Safety Coding Level of Care Code ED Advertising Sales Agent for Chg Fwd Exam Comprehensive
[2022-04-01 22:43] VITALS: RESP 22
[2022-04-01] MEDS: HYDROmorphone 1 mg/mL INJ 1 mL IVP (22:43)
[2022-04-01] MEDS: ondansetron 2 mg/ML SDV 2 mL 4 MG IVP (22:43)
[2022-04-01 22:48] LABS: Basophils # 0.1 10^3/uL (0.0-0.1); Basophils % 0.4 %; Eosinophils # 0.2 10^3/uL (0.0-0.8); Eosinophils % 1.2 %; Hematocrit 34.1 % (37.0-47.0); Hemoglobin 12.1 g/dL (11.5-15.3); Lymphocytes # 2.7 10^3/uL (0.8-4.8); Lymphocytes % 17.8 %; Mean Corpuscular HGB Conc 35.5 g/dL (30.0-36.0); Mean Corpuscular Hemoglobin 29.4 pg (28.0-34.0); Mean Corpuscular Volume 82.8 fl (81-99); Mean Platelet Volume 9.6 fL (7.4-10.4); Monocytes # 1.1 10^3/uL (0.2-0.9); Monocytes % 7.6 %; Neutrophils # 10.86 10^3/uL (1.8-7.7); Neutrophils % 72.5 %; Nucleated Red Blood Cells % 0 %; Platelet Count 406 10^3/cmm (130-400); Red Blood Count 4.12 10^6/uL (4.1-5.3); Red Cell Distribution Width 13.1 % (12.1-15.1)
[2022-04-01 23:08] LABS: Alanine Aminotransferase 12 U/L (0-33); Albumin Level 4.1 g/dL (3.5-5.2); Alkaline Phosphatase 87 IU/L (35-105); Anion Gap 14.8 (5-19); Aspartate Amino Transferase 15 U/L (0-32); Blood Urea Nitrogen 10 mg/dL (6-20); Calcium 8.9 mg/dL (8.5-10.5); Carbon Dioxide 21 mmol/L (22-29); Chloride 106 mmol/L (98-107); Glomerular Filtration Rate 123.9 mL/min (90-130); Glucose 104 mg/dL (65-115); Osmolality Calculated 285 mOsm/kg (285-295); Potassium 3.8 mmol/L (3.5-5.1); Sodium 138 mmol/L (136-145); Total Bilirubin 0.5 mg/dL (0.15-1.2); Total Protein 7.1 g/dL (6.6-8.7)
[2022-04-02] MEDS: miSOPROStol 200 mcg Tablet 600 MCG PO (00:50)
[2022-04-02 01:00] VITALS: BP 117/71; PULSE 76; RESP 16; O2SAT 96
== END 2022-04-02 01:01 | disposition home or self-care (01) ==
PROVIDERS: Emergency Provider Emergency Medicine; PCP Family Medicine
DX: O03.9 Complete or unspecified spontaneous abortion without complication (principal)
CPT/HCPCS: 76801; 80053; 85025; 96374; 96375; 99284; J1170; J2405

== ENCOUNTER 2022-04-04 06:11 | Day surgery (SDC) | payer MEDICAID, SELFPAY ==
[2022-04-03 08:22] VITALS: BMI 27.0
[2022-04-04] VITALS (9 sets, daily range): BP systolic 102–116; BP diastolic 71–78; PULSE 69–104; RESP 14–18; TEMP 36.2–36.9; O2SAT 96–100
[2022-04-04] MEDS: sodium chloride 0.9% 1,000 ML 30 ML IV (06:26)
--- NOTE | 2022-04-04 06:46 | ANES.PREANE2 ---
Pre-Anesthetic Assessment Height/Weight: Height 1.5 m Weight 60.781 kg Temp Pulse Resp BP Pulse Ox 98.5 F 86 16 106/77 100 04/04/22 06:21 04/04/22 06:21 04/04/22 06:21 04/04/22 06:21 04/04/22 06:21 Preop Diagnosis: 1. 37-week gestation 2. Preeclampsia 3. Failure to progress Operation Date: 04/04/22 07:00 Proposed Procedures p Dilation And Curettage (D&C) 57516,O02.1(Not Applicable) - Spencer Linder MD Familial anesthetic complications: None Was Beta Sadia taken within 24 hours: N/A Was Clonidine taken within 24 hours: N/A Last intake: Intake Last Liquid Date 04/03/22 Last Liquid Time 21:00 Last Solid Date 04/03/22 Last Solid Time 21:00 Social No alcohol and No tobacco Exam alert, oriented x 3, clear to auscultation bilaterally and regular rate & rhythm Airway Submandibular: within normal limits Cervical ROM: within normal limits Mallampati: Class I Dentition: full History/ROS No significant complaints Pulmonary None reported CV/HEM None reported Miscarriage Hepatic None reported GI None reported Metabolic None reported Musc/skel None reported Neuropsych None reported Anesthetic Plan ASA status: 2 Anesthesia: Anesthesia Evaluation and General Other: We discussed risk and benefits of general anesthesia including PONV, sore throat (sometimes severe), corneal abrasion, positioning and peripheral nerve injuries, life threatening allergic reaction, post operative ICU admission requiring prolonged intubation, stroke, heart attack, , and rare incidences of recall. Patient consents to proceed with general anesthesia. Risk of > 500 ml blood loss (7ml/kg in children): No Medications/Allergies Home Medications Medication Instructions Recorded Confirmed Last Taken Type levothyroxine 25 mcg tablet 75 mcg PO DAILY 04/21/20 04/03/22 10/05/20 08:00 History (Euthyrox) ibuprofen 800 mg tablet 800 mg PO TID #45 tab 10/09/20 04/03/22 Unknown Rx desogestrel 0.15 mg-ethinyl 1 tab PO DAILY 11/20/20 04/03/22 Unknown History estradiol 0.03 mg tablet (Apri) hydrocodone 5 mg-acetaminophen 325 1 tab PO Q6H PRN #14 tab 04/02/22 04/03/22 Unknown Rx mg tablet ferrous sulfate 325 mg (65 mg 325 mg PO DAILY 04/03/22 04/03/22 Unknown History iron) tablet (iron) Allergies Allergy/AdvReac Type Severity Reaction Status Date / Time sulfamethoxazole Allergy ALGY-Hives Verified 04/03/22 08:20 [From Bactrim] trimethoprim [From Bactrim] Allergy ALGY-Hives Verified 04/03/22 08:20 Current Medications Generic Name Dose Route Start Last Admin Trade Name Freq PRN Reason Stop Dose Admin Sodium Chloride 1,000 mls @ 30 mls/hr 04/04/22 06:15 04/04/22 06:26 Sodium Chloride 0.9% IV 04/05/22 06:14 30 mls/hr .Q24H SHERRON Administration PFSH Anesthesia Medical History Hereditary cavernous hemangioma of brain Hypothyroidism Surgical History No history of previous surgery Social History Smoking and tobacco status: never smoked Alcohol intake: never Female Reproductive History Date of last menstrual period: 08/31/19 Data Anesthesia Cardiac Studies: No Data to Display
--- NOTE | 2022-04-04 06:49 | W.PM.OPSUD ---
Surgery/Procedure H&P Update DATE OF PROCEDURE: April 04, 2022 DATE H&P PERFORMED: 04/02/22 PREOP DIAGNOSIS: 1. Missed PRIMARY INDICATION FOR PROCEDURE: Spontaneous with retained products of conception and continued bleeding PLANNED PROCEDURE: Operation Date: 04/04/22 07:00 Proposed Procedures p Dilation And Curettage (D&C) 32947,O02.1(Not Applicable) - Spencer Linder MD Related Problem List Diagnoses (1) Missed with demise before 20 completed weeks of gestation: We discussed the risks of bleeding and uterine perforation. We also discussed the risks of anesthesia. The patient had no further questions and wishes to proceed.
[2022-04-04] MEDS: midazolam 1 mg/mL INJ 2 mL 2 MG IVP (06:54)
--- NOTE | 2022-04-04 07:32 | PM.OP ---
Operative Report Date of procedure: April 04, 2022 Pre-op diagnosis: Preop Diagnosis 1. Missed Post-op diagnosis: Same Post-op findings: Minimal products of conception Procedure done: Dilation curettage with suction Specimens removed/disposition: Products of conception Pathology: Products of conception Surgeon: Spencer Linder Estimated blood loss (mL): 50 Brief History: The patient is a 21-year-old female who presented a nonviable fetus in the first trimester. She was given Cytotec and passed tissue and clots consistent with a completed . Unfortunately, she continued to have bleeding intermittently that was quite severe. We discussed options, and the patient was emotionally exhausted, and desired a D&C. We discussed the risks and alternatives. Procedure: The patient was brought back to the OR where she placed under general anesthesia and was placed in the dorsolithotomy position. The perineum and vaginal vault were cleansed with Betadine. A weighted speculum was placed. A single-tooth tenaculum was also placed in the anterior cervical lip. A sound was used to assess uterine cavity depth. The uterine cavity was then carefully curettaged with a 9 mm suction curettage, then later with a blunt curette until uterine cry was noted in all 4 quadrants. Minimal products of conception were noted. There were no complications. Bleeding was minimal.
[2022-04-04] MEDS: ketorolac 30 mg/mL INJ IVP (07:53)
--- NOTE | 2022-04-04 13:52 | ANE.PACU2 ---
Inpatient post-anesthesia follow up: Airway intact: Yes Vital signs: Temperature 97.6 F Pulse Rate 69 Respiratory Rate 14 Blood Pressure 102/75 Pulse Oximetry 99 Oxygen Delivery Me thod Room Air Oxygen Flow Rate Fraction of Inspir ed Oxygen Hydration adequate: Yes Nausea and vomiting: No Pain level: 6 Mental status: Baseline
== END 2022-04-04 09:02 | disposition home or self-care (01) ==
PROVIDERS: PCP Family Medicine; Visit Provider Family Medicine
PROC: (CPT 58120; principal; 2022-04-04 07:00)
DX: O02.1 Missed abortion (principal)
CPT/HCPCS: 59820; 12345; 88305; J0330; J1100; J1885; J2250; J2405; J2704; J3010; J3490; J7030

== ENCOUNTER 2022-10-22 06:55 | Outpatient (CLI) | payer MEDICAID, SELFPAY ==
--- NOTE | 2022-10-22 | US_ITS ---
WS: [id number] EARLY OBSTETRICAL ULTRASOUND (<14 WEEKS). HISTORY: 5 WEEKS GESTATION COMPARISON: None available. Single intrauterine gestational sac is identified. Cardiac activity at 144 BPM. [place]-rump length azael sures 0.9 cm which corresponds to a gestation of 6w6d. Normal-appearing yolk sac and amnion demonstra christin. Very small subchorionic hemorrhage. Subchorionic hemorrhage measures 3 x 4 x 11 mm along the LE FT lateral gestational sac. No free fluid. Normal size ovaries with no mass. US/US OB <= 14 weeks fetus [id number] IMPRESSION: 1. Single intrauterine gestation of 6 weeks 6 days with an EDC of 06/11/2023. 2. Very small LEFT lateral subchorionic hemorrhage. 3. Normal cardiac activity.
== END 2022-10-22 06:56 | disposition home or self-care (01) ==
PROVIDERS: PCP Family Medicine; Visit Provider Family Medicine
DX: Z36.9 Encounter for antenatal screening, unspecified (principal)
CPT/HCPCS: 76801

== ENCOUNTER 2023-03-30 16:58 | Outpatient (CLI) | payer MEDICAID, SELFPAY ==
[2023-03-30 17:09] VITALS: TEMP 35.6
[2023-03-30 17:10] VITALS: BP 118/65; PULSE 107
[2023-03-30 17:20] VITALS: BMI 30.9
[2023-03-30 17:55] LABS: Bacteria Urine 2+ /hpf; Bilirubin Urine 1+ (Negative); Blood Urine Neg (Negative); Glucose Urine UA Norm (Normal); Ketones Urine 1+ (Negative); Leukocyte Esterase Urine Trace (Negative); Nitrate Urine Negative (Negative); Protein Urine Trace (Negative); Urine Appearance Hazy (CLEAR); Urine Color Dark Yellow (Yellow); Urobilinogen Urine Norm (Negative); pH Urine 5 (5-7)
[2023-03-30 17:56] LABS: Add Urine Culture? No
[2023-03-30 18:09] VITALS: BP 123/70; PULSE 96
[2023-03-30 18:30] VITALS: BP 123/70; PULSE 96; RESP 18
== END 2023-03-30 18:30 | disposition home or self-care (01) ==
LOC: OPOB 16:58 → OBGYN 16:59
PROVIDERS: PCP Family Medicine; Visit Provider Family Medicine
DX: O26.899 Other specified pregnancy related conditions, unspecified trimester (principal); Z3A.00 Weeks of gestation of pregnancy not specified; R11.2 Nausea with vomiting, unspecified
CPT/HCPCS: 59025; 81001; 99211

== ENCOUNTER 2023-05-17 19:34 | Outpatient (CLI) | payer MEDICAID, SELFPAY ==
[2023-05-17] VITALS (8 sets, daily range): BP systolic 123; BP diastolic 83; PULSE 83–103; RESP 16; TEMP 35.9; O2SAT 78–99; BMI 32.3
== END 2023-05-17 20:11 | disposition home or self-care (01) ==
LOC: OPOB 19:34 → OBGYN 19:35
PROVIDERS: PCP Family Medicine; Visit Provider Family Medicine
DX: O36.8190 Decreased fetal movements, unspecified trimester, not applicable or unspecified (principal); Z3A.00 Weeks of gestation of pregnancy not specified
CPT/HCPCS: 59025; 99211

== ENCOUNTER 2023-06-04 05:10 | Inpatient (IN) | payer MEDICAID, SELFPAY ==
[2023-06-04] VITALS (37 sets, daily range): BP systolic 88–151; BP diastolic 52–103; PULSE 62–141; RESP 16–18; TEMP 36.3; O2SAT 99–100; BMI 33.7
[2023-06-04 06:56] LABS: Basophils # 0.1 10^3/uL (0.0-0.1); Basophils % 0.4 %; Eosinophils # 0.5 10^3/uL (0.0-0.8); Eosinophils % 3.4 %; Hematocrit 33.3 % (36-47); Lymphocytes # 2.9 10^3/uL (0.8-4.8); Lymphocytes % 19.7 %; Mean Corpuscular HGB Conc 32.1 g/dL (30-55); Mean Corpuscular Hemoglobin 26.8 pg (27-33); Mean Corpuscular Volume 83.5 fl (85-98); Mean Platelet Volume 11.3 fL (7.4-10.4); Monocytes % 6.7 %; Neutrophils # 10.02 10^3/uL (1.8-7.7); Neutrophils % 68.8 %; Nucleated Red Blood Cells % 0.2 %; Platelet Count 306 10^3/cmm (157-399); Red Blood Count 3.99 10^6/uL (3.85-5.65); Red Cell Distribution Width 14.5 % (12.1-15.1); White Blood Count 14.55 10^3/uL (3.29-11.43)
--- NOTE | 2023-06-04 06:57 | P.HP_ITS ---
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 care has been unremarkable. The patient is Rh- and did receive RhoGAM and the rest of her labs were unremarkable. The patient declined GBS. The patient underwent emergency with her first delivery and opted for repeat for this delivery. Patient has no concerns this morning. Present Details : 3 Para: 1 Labs Rubella: Immune RPR: Negative GBS: Unknown Review of Systems Const: Denies: fever(s), chills, body aches or change in appetite Eyes: Denies: blurry vision or eye discomfort ENMT: Denies: throat pain or dental pain Card: Denies: chest pain Resp: Denies: dyspnea GI: Denies: abdominal pain, nausea, vomiting or diarrhea : Reports: vaginal bleeding; Denies: dysuria Musc: Denies: neck pain or back pain Skin/Breast: Denies: rash Neuro: Denies: headache(s) Psych: Denies: depression Lex/Lymph: Denies: easy bruising All/Imm: Denies: urticaria Medications/Allergies Home Medications Medication Instructions Recorded Confirmed Last Taken Type levothyroxine 25 mcg tablet 75 mcg PO DAILY 04/21/20 06/04/23 05/17/23 History (Euthyrox) aspirin 81 mg tablet 1 mg PO DAILY 05/17/23 06/04/23 Unknown History thggmmld-pdb-Hc-FA 1 mg 1 tab PO DAILY 05/17/23 06/04/23 05/17/23 History tablet Allergies Allergy/AdvReac Type Severity Reaction Status Date / Time sulfamethoxazole Allergy ALGY-Hives Verified 05/17/23 19:45 [From Bactrim] trimethoprim [From Bactrim] Allergy ALGY-Hives Verified 05/17/23 19:45 PFSH REGIONAL DIRECTOR OF ADMISSIONS PFSH: Medical History Hereditary cavernous hemangioma of brain Hypothyroidism Surgical History No history of previous surgery Social History Smoking and tobacco status: never smoked Alcohol intake: never Vitals/I&O/Wt Last Vital Signs Pulse 93 06/04/23 05:27 Resp 16 06/04/23 05:19 BP 132/87 06/04/23 05:27 O2 Del Method Room Air 06/04/23 06:14 Weight last 48 hrs Weight 75.75 kg Physical Exam Const: COMMON NORMALS: patient oriented x3 and alert HENMT: COMMON NORMALS: moist oral mucous membranes HEAD & SCALP: normal to inspection Chest: COMMONS NORMALS: normal inspection of the chest Resp: COMMON NORMALS: clear to auscultation bilaterally AUSCULTATION: clear to auscultation bilaterally Cardio: COMMON NORMALS: regular rate and regular rhythm RATE: regular rate RHYTHM: regular rhythm GI: INSPECTION: Yes normal to inspection and Yes other (Gravid) Extremity: COMMON NORMALS: normal to inspection GENERAL: Yes edema (Trace) Neuro: COMMON NORMALS: patient oriented x3, moves all extremities and no sensory deficits noted SENSORIUM/ORIENTATION: Yes alert Psych: COMMON NORMALS: mental status grossly normal Skin: COMMON NORMALS: no rashes or lesions noted GENERAL SKIN EXAM: no ra shes or lesions noted Data 06/04/23 06:00 A&P Assessment and plan (1) Term , repeat: Discussed risks and benefits of section including infection, bleeding, damage to other structures, and including . Patient gives informed consent to proceed. (2) History of delivery, currently : Attestations Medical Necessity Statement*: Admit for repeat lower transverse . Anticipate greater than 2 midnight stay Coding Level of Care Code Acute Code for Chg Fwd Diagnoses Term , repeat Z34.90 History of delivery, currently O34.219
[2023-06-04] MEDS: metoclopramide 5 mg/mL SDV 2 mL 10 MG IVP (07:05)
[2023-06-04] MEDS: citric acid-sodium citrate 30 mL UDC PO (07:05)
--- NOTE | 2023-06-04 07:05 | ANES.PREANE2 ---
Pre-Anesthetic Assessment Height/Weight: Height 1.5 m Weight 75.75 kg Pulse Resp BP O2 Del Method 93 16 132/87 Room Air 06/04/23 05:27 06/04/23 05:19 06/04/23 05:27 06/04/23 06:14 Preop Diagnosis: previous Operation Date: 06/04/23 07:00 Proposed Procedures p Section(Not Applicable) - Jai Herrera MD Familial anesthetic complications: none Last intake: 199906/03/23 meal 2199- drink 06/03/23 Social No alcohol and No tobacco Exam alert, oriented x 3, clear to auscultation bilaterally and regular rate & rhythm Airway Submandibular: within normal limits Cervical ROM: within normal limits Mallampati: Class I Dentition: full Pulmonary None reported CV/HEM None reported None reported Hepatic None reported GI Gastroesophageal Reflux Disease Metabolic Thyroid Disease [facility] [place] None reported Neuropsych Anxiety cranial vascular anomaly low pressure venous system issue - cranial venous angioma Anesthetic Plan ASA status: 2 Anesthesia: Regional (specify below) (SAB) Medications/Allergies Home Medications Medication Instructions Recorded Confirmed Last Taken Type levothyroxine 25 mcg tablet 75 mcg PO DAILY 04/21/20 06/04/23 05/17/23 History (Euthyrox) aspirin 81 mg tablet 1 mg PO DAILY 05/17/23 06/04/23 Unknown History vupxczoh-[id number] 1 mg 1 tab PO DAILY 05/17/23 06/04/23 05/17/23 History tablet Allergies Allergy/AdvReac Type Severity Reaction Status Date / Time sulfamethoxazole Allergy ALGY-Hives Verified 05/17/23 19:45 [From Bactrim] trimethoprim [From Bactrim] Allergy ALGY-Hives Verified 05/17/23 19:45 [facility] Anesthesia Medical History Hereditary cavernous hemangioma of brain Hypothyroidism Surgical History No history of previous surgery Social History Smoking and tobacco status: never smoked Alcohol intake: never Female Reproductive History : 3 Data Anesthesia 06/04/23 06:00 Short CBC 09/14/23 Range/Units 06:00 WBC 14.55 H (3.29-11.43) 10^3/uL Hgb 10.70 L (11.27-16.99) g/dL Hct 33.3 L (36-47) % MCV 83.5 L (85-98) fl Plt Count 306 (157-399) 10^3/cmm Neut % (Auto) 68.8 % Neut # (Auto) 10.02 H (1.8-7.7) 10^3/uL Cardiac Studies: No Data to Display
[2023-06-04] MEDS: famotidine 20 mg/2 mL INJ IVP (07:06)
[2023-06-04] MEDS: lactated ringers 1,000 ML 999 ML IV (07:06)
[2023-06-04] MEDS: ceFAZolin 2,000 MG in sodium chloride 0.9% (plus) 50 ML 100 MG IV (07:07)
--- NOTE | 2023-06-04 09:27 | PM.OP ---
Operative Report Date of procedure: June 04, 2023 Pre-op diagnosis: Term intrauterine , history of previous Post-op diagnosis: Same Post-op findings: Viable female Procedure done: Repeat lower transverse Surgeon: Jai Herrera MD Drug Regulatory Affairs Specialist: Dr. Vicente Sinclair Anesthesia: Spinal Estimated blood loss: 500cc IV fluids: 1.5L Urine output: 25cc of clear urine Complications: None Brief History: This is a 22-year-old that presents for repeat lower transverse due to term and history of previous Procedure: Patient was taken to the operating room where epidural anesthesia was found to be adequate. She was prepped and draped in the normal sterile fashion in a dorsal supine position with a leftward tilt. Skin incision was made with scalpel and carried out to the underlying layer of fascia which was incised in the midline. Fascial incision was then extended laterally with Cabral scissors bilaterally. The superior aspect of the fascial incision was grasped with Liana clamps elevated and dissected off the rectus muscles with Cabral's. The inferior aspect of the fascial incision was grasped with Anthony's and in likewise manner was elevated and dissected off with Cabral's. Peritoneum was then entered digitally and extended with good visualization of the bladder. Adhesions was noted to the uterus and these were dissected off with cautery. Bladder flap was created. Bladder blade was then inserted. Uterine incision was then created in a transverse fashion in the lower uterine segment with scalpel and extended digitally. Amniotic sac was a round with Allis clamp. Clear fluid noted. Infant's head was delivered atraumatically nose and mouth suctioned with bulb, cord clamped and cut and handed off to waiting nursing staff. The placenta was then expressed and uterus exteriorized from the abdomen. And cleared of all clots and debris. Uterine incision was then repaired in a running locked fashion with 0 Vicryl. A second suture of the same was then used to imbricate the incision. Excellent hemostasis was noted. Uterus was then returned to the abdomen, gutters were cleared of all clots and debris and wound was irrigated. Fascia was then closed with 0 Vicryl in a running fashion. Subcutaneous tissue was closed with 3-0 Vicryl and skin was closed with 4-0 Monocryl on a Antonio needle. The incision was reinforced with Steri-Strips and pressure bandage was placed over the wound. Sponge, laps, and needle count was correct x2. 2 g Ancef was given prior to the procedure. 1 g of TXA was given during the procedure. Patient was taken recovery in stable condition.
[2023-06-04] MEDS: diphenhydrAMINE 50 mg/mL SDV 1mL 25 MG IVP (11:13)
[2023-06-04] MEDS: acetaminophen 325 mg Tablet 650 MG PO (13:05)
--- NOTE | 2023-06-04 14:01 | ANE.PACU2 ---
Inpatient post-anesthesia follow up: Airway intact: Yes Vital signs: Temperature 97.3 F Pulse Rate 100 Respiratory Rate 17 Blood Pressure 109/71 Pulse Oximetry 100 Oxygen Delivery Me thod Room Air Oxygen Flow Rate Fraction of Inspir ed Oxygen Hydration adequate: Yes Nausea and vomiting: No Pain level: 2 Mental status: Baseline
[2023-06-04] MEDS: ketorolac 30 mg/mL INJ IVP ×2 (14:36→22:00)
[2023-06-04] MEDS: ondansetron 2 mg/ML SDV 2 mL 4 MG IVP (14:46)
[2023-06-04] MEDS: dextrose 5%-lactated ringers 1,000 ML 125 ML IV (16:55)
[2023-06-04] MEDS: HYDROcodone-acetaminophen 5-325 mg Tablet PO (17:47)
[2023-06-04 22:10] LABS: Hematocrit 26.8 % (36-47); Mean Corpuscular HGB Conc 31.7 g/dL (30-55); Mean Corpuscular Hemoglobin 26.6 pg (27-33); Mean Corpuscular Volume 83.8 fl (85-98); Mean Platelet Volume 11.3 fL (7.4-10.4); Platelet Count 235 10^3/cmm (157-399); Red Cell Distribution Width 14.3 % (12.1-15.1); White Blood Count 13.47 10^3/uL (3.29-11.43)
[2023-06-05] MEDS: HYDROcodone-acetaminophen 5-325 mg Tablet PO ×3 (02:01→19:40)
[2023-06-05 04:20] VITALS: BP 121/70; PULSE 79
[2023-06-05] MEDS: ketorolac 30 mg/mL INJ IVP (04:27)
--- NOTE | 2023-06-05 07:24 | P.PN_ITS ---
[employer] Subjective Subjective: Interval history: This is a 22-year-old G3, P2 that is postop day 1 after repeat low transverse C- section. Patient has been up ambulating with minimal difficulty. The patient has urinated without issues. Patient states that she is having some left-sided lower abdominal pain but this is managed well with her current pain meds. Patient has no acute concerns this morning. Labor: Amniotic Membrane Status: Intact Monitor Mode: External Contraction Pattern: Irregular Post /CS: Patient comments OB post-: pain well controlled and incisional pain baby status: doing well and nursing well feeding status: exclusively breast feeding Vitals/I&O/Wt Last Vital Signs Temp 97.3 F L 06/04/23 09:31 Pulse 79 06/05/23 04:20 Resp 17 06/04/23 09:40 BP 121/70 06/05/23 04:20 Pulse Ox 100 06/04/23 10:00 O2 Del Method Room Air 06/04/23 06:14 06/04/23 06/05/23 06/05/23 22:59 06:59 14:59 Output Total 600 / 1125 Balance -600 / 675 Weight last 48 hrs Weight 75.75 kg Physical Exam Narrative: She is in no acute distress Lungs are clear auscultation bilaterally Her heart has a regular rate and rhythm Her fundus is below the umbilicus and firm Her dressing is clean, dry and intact Her extremities have trace edema Urinary Catheter Management: Garcia: Cath Placed During This Visit: yes, but has since been removed by the nurse Reason for Continuing Indwelling Catheter: Decision to DC Catheter Urinary Catheter Date of Insertion: 06/04/23 Urinary Catheter Time of Insertion: 08:15 Date Urinary Catheter Removed: 06/04/23 Time Urinary Catheter Discontinued: 19:00 Data 06/04/23 21:55 A&P Assessment and plan (1) delivery delivered: Patient is doing well postop. Continue routine care. Attestations Medical Necessity Statement*: Anticipate discharge tomorrow Coding Level of Care Code Acute Code for Chg Fwd Diagnoses delivery delivered O82
[2023-06-05 09:31] VITALS: RESP 16
[2023-06-05] MEDS: docusate sodium 100 mg Capsule PO ×2 (09:50→18:05)
[2023-06-05] MEDS: prenatal vitamin Capsule 1 CAP PO (09:50)
[2023-06-05] MEDS: ibuprofen 800 mg tablet PO ×3 (09:50→22:25)
[2023-06-05] MEDS: ferrous sulfate EC 325 mg Tablet PO ×2 (09:50→18:05)
[2023-06-05 11:36] VITALS: BP 120/75; PULSE 81
[2023-06-05 16:58] VITALS: BP 128/84; PULSE 83
[2023-06-05 22:27] VITALS: BP 115/69; PULSE 102
[2023-06-06 04:55] VITALS: BP 128/84; PULSE 83; RESP 16; TEMP 36.6; O2SAT 96
[2023-06-06] MEDS: prenatal vitamin Capsule 1 CAP PO (07:07)
[2023-06-06] MEDS: HYDROcodone-acetaminophen 5-325 mg Tablet PO ×2 (07:08→11:09)
[2023-06-06] MEDS: docusate sodium 100 mg Capsule PO (07:08)
[2023-06-06] MEDS: ferrous sulfate EC 325 mg Tablet PO (07:08)
--- NOTE | 2023-06-06 08:04 | P.DS_ITS ---
Discharge Providers Date of Admission: 06/04/23 05:10 Date of Discharge: June 06, 2023 Attending Provider at Admission: Jai Herrera MD Attending Provider at Discharge: Jai Herrera MD Primary Care Provider: Jai Herrera MD Diagnoses at Discharge Discharge Diagnosis (1) delivery delivered: Status: Acute Reason for Visit Reason for Visit: c section Hospital Course Hospital Course This is a that presented at 39 weeks 2 days for repeat low-transverse C- section. Patient underwent without complication. No issues. Lochia has been appropriate. Patient's not had any fever. Had some pain but this has been controlled with oral pain medications. Nursing has no concerns. Patient is stable. Physical Exam Narrative: She is in no acute distress Lungs are clear auscultation bilaterally Her heart has a regular rate and rhythm Her fundus is below the umbilicus and firm Her dressing is clean, dry and intact Her extremities have trace edema Urinary Catheter Management: Garcia: Cath Placed During This Visit: yes, but has since been removed by the nurse Reason for Continuing Indwelling Catheter: Decision to DC Catheter Urinary Catheter Date of Insertion: 06/04/23 Urinary Catheter Time of Insertion: 08:15 Date Urinary Catheter Removed: 06/04/23 Time Urinary Catheter Discontinued: 19:00 Discharge Data Studies Completed and Pending Pending at discharge Category Date Time Status Complete Crossmatch Stat Lab 06/04/23 06:00 Results Rho D Immune Globulin Stat Lab 06/04/23 06:00 Results Type and Screen Stat Lab 06/04/23 06:00 Results Laboratory Results WBC 13.47 10^3/uL (3.29-11.43) H 06/04/23 21:55 RBC 3.20 10^6/uL (3.85-5.65) L 06/04/23 21:55 Hgb 8.50 g/dL (11.27-16.99) L 06/04/23 21:55 Hct 26.8 % (36-47) L 06/04/23 21:55 MCV 83.8 fl (85-98) L 06/04/23 21:55 MCH 26.6 pg (27-33) L 06/04/23 21:55 MCHC 31.7 g/dL (30-55) 06/04/23 21:55 RDW 14.3 % (12.1-15.1) 06/04/23 21:55 Plt Count 235 10^3/cmm (157-399) 06/04/23 21:55 MPV 11.3 fL (7.4-10.4) H 06/04/23 21:55 Neut % (Auto) 68.8 % 06/04/23 06:00 Lymph % (Auto) 19.7 % 06/04/23 06:00 Crowley % (Auto) 6.7 % 06/04/23 06:00 Eos % (Auto) 3.4 % 06/04/23 06:00 Baso % (Auto) 0.4 % 06/04/23 06:00 Neut # (Auto) 10.02 10^3/uL (1.8-7.7) H 06/04/23 06:00 Lymph # (Auto) 2.9 10^3/uL (0.8-4.8) 06/04/23 06:00 Crowley # (Auto) 1.0 10^3/uL (0.2-0.9) H 06/04/23 06:00 Eos # (Auto) 0.5 10^3/uL (0.0-0.8) 06/04/23 06:00 Baso # (Auto) 0.1 10^3/uL (0.0-0.1) 06/04/23 06:00 Nucleated RBC % (auto) 0.2 % 06/04/23 06:00 Nucleated RBCs # 0.0 /100WBC 06/04/23 06:00 Blood Type O Negative 06/04/23 06:00 Rho(D) Type Negative 06/04/23 06:00 Antibody Screen Negative 06/04/23 06:00 Screen Negative (Negative) 06/04/23 21:55 Vitals Last Vital Signs Temp 97.9 F 06/06/23 04:55 Pulse 83 06/06/23 04:55 Resp 16 06/06/23 04:55 BP 128/84 06/06/23 04:55 Pulse Ox 96 06/06/23 04:55 O2 Del Method Room Air 06/06/23 04:55 Discharge Plan Discharge Patient Disposition: Home Condition: Stable Prescriptions: New hydrocodone-acetaminophen 5-325 mg Tablet 1 tab PO Q4H PRN (Reason: Moderate To Severe Pain) Qty: 20 0RF Continued levothyroxine [Euthyrox] 25 mcg tablet 75 mcg PO DAILY [id number]-[id number]-FA 1 mg Tablet 1 tab PO DAILY Discontinued aspirin 81 mg Tablet 1 mg PO DAILY Discharge Orders: Discharge Order (Routine); Ordered 06/06/23 Ordered By: Jai Herrera Referrals: Jai Herrera MD [Primary Care Provider] - 1 week Discharge Diet: Usual diet Discharge Activity: Limit activity as instructed Patient Instructions: Depression (DC), Bleeding (DC), Preeclampsia and Eclampsia After Delivery (GEN), Hemorrhage (DC), OB - Kailash/Nilda, OB Discharge Report, OB Food/Drug Interaction Guide, OB Care at Home, Opioid Safety Discharge Attestations Time Spent in Discharge Care*: less than 30 min Quality Metrics Clinical Quality Measures [ No reported AMI, CVA or VTE this stay] Coding Level of Care Code Acute Code for Chg Fwd Diagnoses delivery delivered O82
[2023-06-06 08:49] VITALS: RESP 16
[2023-06-06 11:30] VITALS: BP 130/80; PULSE 74; RESP 16; TEMP 36.7; O2SAT 97
== END 2023-06-06 11:30 | disposition home or self-care (01) | DRG 787 ==
PROVIDERS: Admitting Provider Family Medicine; PCP Family Medicine; Visit Provider Family Medicine
PROC: 10D00Z1 Extraction of Products of Conception, Low, Open Approach (ICD-10-PCS; CPT 59514; principal; 2023-06-04 07:00)
DX: O34.211 Maternal care for low transverse scar from previous cesarean delivery (principal); O36.0130 Maternal care for anti-D [Rh] antibodies, third trimester, not applicable or unspecified; N85.8 Other specified noninflammatory disorders of uterus; Z3A.39 39 weeks gestation of pregnancy; Z37.0 Single live birth
CPT/HCPCS: 36415; 51702; 59025; 59409; 85025; 85027; 85460; 86850; 86900; 90384; 96374; 96376; J0690; J1200; J1885; J2274; J2371; J2405; J2765; J3490; J7120; J7121

== ENCOUNTER 2023-10-30 22:28 | Emergency (ER) | payer MEDICAID, SELFPAY ==
[2023-10-30 22:31] VITALS: BP 154/104; PULSE 81; RESP 18; TEMP 36.4; O2SAT 99
--- NOTE | 2023-10-30 22:52 | ED_ITS ---
HPI - URI/Sore Throat General: Chief Complaint: Upper Respiratory Infection Stated Complaint: Sore Throat Time Seen by Provider: 10/30/23 22:36 Source: patient Mode of arrival: ambulatory Limitations: no limitations History of Present Illness: Patient is a nice 23-year-old female who presents to ED today with a complaint of a sore throat. She is also having head and nasal congestion. Symptoms start ed 1 to 2 days ago. She has not been running fevers. Patient is concerned she could potentially have strep throat. She has no cough or chest congestion. Denies sick contacts although states she does have children that attend school. She has been able to continue to eat and drink. Her main complaint today is the sore throat. MD elicited complaint: sore throat, nasal congestion and sinus pain Onset (ago): day(s) Consistency: constant Severity: moderate Description of mucous: yellow Able to tolerate fluids by mouth: Yes Exacerbating factors: swallowing Relieving factors: nothing Associated symptoms: Reports nasal congestion, sinus pain and sore throat; Deny chills, chest pain, diarrhea, ear or mastoid pain, fever(s), headache(s), nausea or vomiting Review of Systems Const: Denies: fever(s), chills, body aches, fatigue or malaise ENMT: Reports: throat pain, odynophagia, nasal congestion and sinus pain; Denies: uvular edema, enlarged tonsils, swelling of lips/tongue, oral sores, dental pain or ear or mastoid pain Card: Denies: chest pain Resp: Denies: dyspnea, productive cough, non-productive cough or chest congestion GI: Denies: nausea, vomiting or diarrhea Musc: Denies: neck pain Skin/Breast: Denies: rash Neuro: Denies: headache(s) [facility] ED PFSH: Medical History Hereditary cavernous hemangioma of brain Hypothyroidism Surgical History History of delivery, currently No history of previous surgery Social History Smoking and tobacco/nicotine status: never used tobacco/nicotine Alcohol intake: never Female Reproductive History: Date of last menstrual period: 10/30/23 Physical Exam Const: COMMON NORMALS: no acute distress, average body habitus, patient o riented x3, no limitations, healthy appearing, alert and well nourished GENERAL APPEARANCE: cooperative ORIENTATION/CONSCIOUSNESS: Yes awake, Yes oriented to person, Yes oriented to place and Yes oriented to time HENMT: COMMON NORMALS: normocephalic and atraumatic HEAD & SCALP: normal to inspection, normocephalic and atraumatic FACE & SINUS: sinus tenderness MOUTH: Normal oral and palatal mucosa present and lip normal THROAT: tonsils normal and posterior oropharynx abnormal erythema; no uvular edema Eye: GENERAL EYE: appearance normal, both eyes and all related structures Neck/C-Spine: COMMON NORMALS: no lymphadenopathy and no meningeal signs Resp: COMMON NORMALS: normal respiratory effort and clear to auscultation bilaterally AUSCULTATION: clear to auscultation bilaterally Cardio: COMMON NORMALS: regular rate and regular rhythm RATE: regular rate RHYTHM: regular rhythm Neuro: COMMON NORMALS: patient oriented x3 SENSORIUM/ORIENTATION: Yes alert, Yes oriented to person, Yes oriented to place and Yes oriented to time MENINGEAL SIGNS: Yes no meningeal signs Course Vital Signs: Vital signs: Vital Signs Temperature 97.6 F 10/30/23 22:31 Pulse Rate 81 10/30/23 22:31 Respiratory Rate 18 10/30/23 22:31 Blood Pressure 149/91 10/30/23 23:01 Pulse Oximetry 99 10/30/23 23:01 Oxygen Delivery Me thod Room Air 10/30/23 22:31 MDM - URI/Sore Throat Medical Decision Making Patient will have a rapid strep and respiratory panel performed. She states she would like to get home to her 4-month-old infant and is requesting that I contact her with the strep results later this evening. Patient was contacted in regards to her negative strep. Recommend she contact the emergency department in the morning to obtain results of her respiratory panel. Symptomatic/conservative therapies discussed. Differential Diagnosis Likely upper respiratory infection, sinusitis, viral infection, influenza and pharyngitis Medical Records I reviewed the patient's medical records. Lab Data I reviewed the patient's lab results. Laboratory Results Group A Strep Rapid Negative (Negative) 10/30/23 22:53 No radiology studies performed this visit Discharge Plan Discharge Patient Disposition: Home Clinical Impression: Acute pharyngitis Qualifiers: Pharyngitis/tonsillitis etiology: unspecified etiology Qualified Code(s): J02.9 - Acute pharyngitis, unspecified Condition: Stable Prescriptions: New Lidocaine Viscous 2 % solution 15 ml MUCOUS MEM QID Qty: 100 0RF Rx Instructions: Mix with water and swish for 60 seconds, then spit No Action levothyroxine [Euthyrox] 25 mcg tablet 75 mcg PO DAILY hydrocodone-acetaminophen 5-325 mg Tablet 1 tab PO Q4H PRN (Reason: Moderate To Severe Pain) Qty: 20 0RF mxmipavn-[id number]-FA 1 mg Tablet 1 tab PO DAILY Discharge Orders: Discharge ED (Routine); Ordered 10/30/23 Ordered By: Joan Smallwood Referrals: Jai Herrera MD [Primary Care Provider] - Activity Restrictions/Additional Instructions: As we discussed I will contact you later this evening in regards to your strep results. You may contact the emergency department in the morning to get results of your respiratory panel. I have E scripted a prescription for the viscous lidocaine to help with your throat discomfort to your pharmacy on file. As we discussed if your strep results are positive, I will also call you in antibiotics. Coding Level of Care Code ED Icer Hand for Chapito Alfred
[2023-10-30] MEDS: lidocaine 2% viscous 15 mL UDC MUCOUS MEM (22:56)
[2023-10-30 23:01] VITALS: BP 149/91; O2SAT 99
[2023-10-30 23:05] LABS: Rapid Strep A Test Negative (Negative)
[2023-10-31 00:41] LABS: Adenovirus Not Detected (NOT DETECT); Chlamydia Pneumoniae Not Detected (NOT DETECT); Coronavirus 229E,HKU1,NL63,OC4 Not Detected (NOT DETECT); Human Metapneumovirus Not Detected (NOT DETECT); Human Rhinovirus/Enterovirus Detected (NOT DETECT); Influenza A Not Detected (NOT DETECT); Influenza A H1 Not Detected (NOT DETECT); Influenza A H1-2009 Not Detected (NOT DETECT); Influenza A H3 Not Detected (NOT DETECT); Influenza B Not Detected (NOT DETECT); Mycoplasma Pneumoniae Not Detected (NOT DETECT); Parainfluenza Virus Type 1 Not Detected (NOT DETECT); Parainfluenza Virus Type 2 Not Detected (NOT DETECT); Parainfluenza Virus Type 3 Not Detected (NOT DETECT); Parainfluenza Virus Type 4 Not Detected (NOT DETECT); Respiratory Syncytial Virus A Not Detected (NOT DETECT); Respiratory Syncytial Virus B Not Detected (NOT DETECT); SARS-COV-2 Not Detected (NOT DETECT)
== END 2023-10-30 23:01 | disposition home or self-care (01) ==
PROVIDERS: Emergency Provider Physician Assistant; PCP Family Medicine
DX: J02.9 Acute pharyngitis, unspecified (principal)
CPT/HCPCS: 87081; 87486; 87581; 87633; 87880; 99283

== ENCOUNTER 2025-03-16 22:13 | Emergency (ER) | payer MEDICAID, SELFPAY ==
--- OUTSIDE RECORDS SUMMARY | 2014-06-02 10:00 | XMS_ITS | Continuity of Care Document ---
Author Organization [facility], [facility] Address [address] [place] [address] Phone Care Team Providers Care Applications Developer Name Role Phone Becca Evans OD Unavailable Unavailable Allergies, Adverse Reactions, Alerts Substance Reaction Status Criticality No Known Allergies Active No Inform ation Procedures Procedure Date EYE EXAM, NEW PATIENT VISION REFRACTION UPDATE Vision svcs frames purchases Single Vision Lens Lens Polycarb Single Vision Lens Lens Polycarb Advance Directives Directive Yes / No Effective Date File Name No Information Encounters Encounter Description Practice Location Reason(s) For Visit Diagnoses Date Provider Providers Copied on Encounter [facility], [facility], [address] [place] [address], [id number] , [place] tel:[phone] [facility] MyopiaMyopiaRegular astigmatismRegular astigmatism 4 Nathan Hudson . [address] [place] [address], [id number] , [place]. tel:[phone] Family History Family Member Type Diagnosis Age At Onset Problem (finding) No Family history of Ar thritis Problem (finding) No Family history of St roke Grandfather Problem (finding) Heart Disease Father Problem (finding) asthma Problem (finding) No Family history of Re spiratory Disease Problem (finding) No Family history of Re tinal Disorders Grandmother Problem (finding) Diabetes mellitus Problem (finding) No Family history of St rabismus Problem (finding) No Family history of Gl aucoma Problem (finding) No Family history of Ca taracts Problem (finding) No Family history of HB P Payers Payer name Insurance type Covered constitution party ID Authoriza tion(s) No Information Social History Type Description Quantity Date Captured Comments Alcohol Use Details Unknown Caffeine Use Details Unknown Tobacco Use Status No Information Smoking Status Never smoker Non-Smoking Tobacco Use Details : No Details Available : No Details Available Sex Female Chief Complaint And Reason For Visit No Information Reason For Referral Reason For Referral No Information History Of Present Illness Encounter Date Complaint History Of Prese nt Illness No Information Functional Status Date Functional Assessmen t No Information Instructions Date Instruction Additional Infor alexander - Return in 1 year with ROMAN for Ref T & D. Related to Myopia Myopia OU. Condition : will continue to monitor. Regular astigmatism OU. Condition: will continue to monitor. - Myopia and astigmatism OU. REC glasses for fulltime or parttime wear.Eyes appear healthy. Educational materials provided:none needed.1 year for RTD Related to Myopia Assessments Type Assessment Date No Information Patient Care Teams Name Effective Dates (start - stop) Status Members No Information
--- OUTSIDE RECORDS SUMMARY | 2018-09-10 04:28 | XMS_ITS | Continuity of Care Document ---
Author Organization [facility] Address [address] [id number] [address] Phone Care Team Providers Care Metal Milling Machine Operator Name Role Phone Sidney Leahy NP Unavailable Unavailable Allergies, Adverse Reactions, Alerts Substance Reaction Status Criticality trimethoprim Active No Information sulfamethoxazole Active No Informat ion cigarette smoke Active No Informati on Medications Medication Instructions Dosage Effective Dates (start - stop) Status Comments fluoxetine 40 mg capsule take 1 capsule by oral route every day in the morning 40 MG - Active hydroxyzine HCl 25 mg tablet take 1 tablet by oral route 3 times every day as needed 25 MG - Active levothyroxine 50 mcg tablet take 1 tablet by oral route every day 50 MCG - Active fluoxetine 20 mg tablet take 1 tablet by oral route every day in the morning 20 MG - No Longer Active Procedures Procedure Date Finalize Template Workaround Behavioral Health Consult OFFICE/OUTPATIENT VISIT EST Thyroid Or Limited Soft Tissue 18 Thyroid Or Limited Soft Tissue 18 COMPLETE CBC W/AUTO DIFF WBC COMPREHEN METABOLIC PANEL LIPID PANEL ASSAY THYROID STIM HORMONE ROUTINE VENIPUNCTURE OFFICE/OUTPATIENT VISIT, NEW Comprehensive Oral Evaluatio n New Or Established [employer] Panoramic Film Intraoral Periapical First Film Intraoral Periapical Each Additional Film Intraoral Periapical Each Additional Film Intraoral Periapical Each Additional Film New Caries Lesion Caries Moderate Risk EDR Approval Note Advance Directives Directive Yes / No Effective Date File Name No Information Encounters Encounter Description Practice Location Reason(s) For Visit Diagnoses Date Provider Providers Copied on Encounter [facility], [id number], [id number], [place] tel:[phone] Family Medicine F1 No Information 8 Armond Little. [address], [place], [id number], [place]. tel:[phone] [facility], [id number], [id number], [place] tel:[phone] [facility] Other specified counseling 8 Smiley Brothers. [address], [place], [id number], [place]. tel:[phone] OFFICE/OUTPA TIENT VISIT EST [facility], [id number], [id number], [place] tel:[phone] Family Medicine F1 Est Care (chief complaint)Dep ression (chief complaint)Anx iety (chief complaint) AnxietyDisor lee ann of thyroid, unspecifiedM ajor depressive disorder, recurrent, moderate 8 Armond Little. [address], [place], [id number], [place]. tel:[phone] Referring Provider: Sidney Leahy, [address] [place], [address] . tel:[phone] [facility], [id number], [id number], [place] tel:[phone] Family Medicine F1 Disorder of thyroid, unspecified Nov- 8 No Information [facility], [id number] [place], [id number], [place] tel:[phone] Family Medicine F1 Nontoxic goiter, unspecified Nov- 8 Marry Gomez. [address], [place], [id number], [place]. [phone] [facility], [id number], [place], [place], [id number], [place] tel:[phone] [place] [address] Nontoxic goiter, unspecified 8 No Information [facility], [id number], [place], [address], [place] tel:[phone] Family Medicine Nontoxic goiter, unspecified 8 No Information OFFICE/OUTPA TIENT VISIT, [facility], [id number], [address], [place] tel:[phone] Family Medicine F1 Establishing Care (chief complaint)Fol low Up of thyroid (chief complaint)anx iety (chief complaint)dep ression (chief complaint) Goiter NOSAnxietyDe pression 8 No Information [facility], [id number], [place], [place], [address], [place] tel:[phone] [facility] Encounter for dental exam and cleaning w/o abnormal findings 7 Guido Sánchez. [address] [place], [address], [place]. tel:[phone] Referring Provider: Gonzalo Lora, [address] [place], [address]. tel:[phone] Family History Family Member Type Diagnosis Age At Onset Problem (finding) Family history of Thyroid disorder Problem (finding) Family history of hyper tension Paternal grandfather Problem (finding) triple heart by pass Payers Payer name Insurance type Covered democrat ID Authoriza tisuzi(s) No Information Social History Type Description Quantity Date Captured Comments Sex Female Smoking Status No Information Sexual Orientation Heterosexual Gender Identity Female Chief Complaint And Reason For Visit No Information Reason For Referral Reason For Referral No Information Plan Of Treatment Date Type Action Status Referral Ordered: Referrals: Endocrinology, Diabetes and Metabolism ordered Future Order: Lab Order TSH-InHo use ([id number]), Sent on: Sent Future Order: Radiology Order Th yroid Or Soft Tissue Neck ([id number]), Ordered on: Ordered History Of Present Illness Encounter Date Complaint History Of Prese nt Illness Est Care Presents to clin ic to establish care for major depressive disorder and generalized anxiety disorder. States that she has been off of her medications since she was 15 due to a loss of insurance and would like to try new antidepressants and anxiolytics. Reports three months of withdrawal symptoms after weaning self off of sertraline and amitriptyline and does not desire to restart these medications. Depression Onset: 7 years a go. The problem is severe. The problem has worsened. The type of behavior includes depression. Symptoms are associated with stressors in school (in college). Relevant history negative for frequent school absences and school failure. Associated symptoms include anxiety, depression, feelings of guilt/worthlessness, headaches and social withdrawal. Pertinent negatives include decreased appetite, fatigue, hallucinations, homicidal ideation, nausea, social withdrawal, suicidal ideation or weight loss. Additional information: Patient's current PHQ-9 score is 21. Anxiety This is an initi al visit. The first episode occurred in 2011. The patient reports functioning as very difficult. The patient presents with anxious/fearful thoughts, depressed mood and excessive worry but denies decreased need for sleep, fatigue, hallucinations or thoughts of or suicide. The patient's risk factors include history of depression. The patient's risk factors exclude alcoholism, childhood abuse or neglect, chronic illness and history of suicidal attempts. The Anxiety is associated with headache. The patient denies any nausea, vomiting and weight gain. Additional information: Reports prior diagnoses of two separate types of anxiety disorders in the past. Has not had treatment for symptoms since age 15. Establishing Care Patient is her e to establish care. She was seen at the [facility] for increased heart rate of 143. Her blood pressure was 120/115. Patient says that she was given 25mcg of levothyroxine for treatment. She says that her symptoms worsened so she quit the medication. Follow Up of thyroid Patient was told that she had a thyroid condition as she was having increased pulse and blood pressure with fluttering in chest. She was treated with 25 mcg of Levothyroxine and she said that her symptoms became worse. She stopped the medication. Symptoms have improved but she still has episodes of increased heart rate and chest pain. She denies symptoms today at this visit. anxiety There is continu ation of initial symptoms. The patient reports functioning as very difficult. The patient presents with anxious/fearful thoughts, depressed mood, diminished interest or pleasure, easily startled, excessive worry, feelings of guilt, paranoia, poor judgment and racing thoughts but denies fatigue. The patient's risk factors include of a friend or loved one, family history of depression, family history of anxiety, financial worries, history of depression, social isolation, unemployment and victim of abuse or violence. The anxiety is aggravated by conflict or stress, social interactions and traumatic memories. The anxiety is associated with headache. The patient denies any nausea, urinary frequency, vomiting and weight gain. depression The severity of the problem is moderate. The problem has not changed. Associated symptoms include anxiety, depression and headaches. Pertinent negatives include decreased appetite, diarrhea, fatigue, nausea, seizures, vomiting or weight loss. Additional information: Patient has had symptoms since she was 10 or 11. She was on sertraline for about a year. She has not taken the medication as she could not afford it. Functional Status Date Functional Assessmen t No Information Instructions Date Instruction Additional Infor mation Hydroxyzine initiate d today as needed.Discussed appropriate coping mechanisms including meditation, yoga, and deep breathing.C consulted in clinic today and set patient up with counseling.RTC in 4-6 weeks for medication check and PRN concerns. Related to Anxiety Have TSH drawn as so on as possible with results forwarded to endocrinology.If drawn at [facility] (depending if [facility] patient assistance is cheaper) please have endo send results to [facility]. Continue taking levothyroxine as prescribed by railroad car painter.RTC PRN concerns. Related to Disorder of thyroid, unspecified Denies SI/HIFluoxeti ne initiated today.[facility] consulted and labs drawn.Discussed medication and side effects. Call for worsening of symptoms, SI. If this occurs stop medication and call clinic. If depression worsens or patient becomes suicidal then he needs to stop medication and seek help. The risks, benefits and side effects of treatment were discussed with the patient. Return to clinic in 4-6 weeks. If unable to return to clinic. They may call with update on how they are feeling. The patient verbalized an understanding of all instructions. Related to Major depressive disorder, recurrent, moderate Attend counseling on campus as neededAvoid prolonged periods of isolationReturn to clinic if symptoms worsen and medication is desired Related to Depression Attend counseling on campus as neededAvoid potential triggers of anxietyReturn to clinic if symptoms worsen and medication is desired Related to Anxiety Lab results to be ca lled to patientUltrasound of thyroid to be scheduled Follow up pending results Related to Goiter NOS Lifestyle education Related to D ental Examination Assessments Type Assessment Date No Information Patient Care Teams Name Effective Dates (start - stop) Status Members No Information
--- OUTSIDE RECORDS SUMMARY | 2025-03-16 22:20 | XMS_ITS | Data Portability ---
Author Organization PETER Curtis Rodriguez [facility] Froylan Baxter [facility] Address [address] [address] [place] [address] Care Team Providers Care Lead Driver Name Role Phone DAX ROSE Primary Care Provider Unavailabl e Assessment No assessment recorded. Plan of Treatment Reminders Order Date Submit Date Provider Last Modified By Organization Details Last Modified Time Details Appointments None recorded. Lab thyrotropin , QN, serum or plasma 2024 025 [facility] [employer] [facility], [address] [place] [address], [facility] [address] [place], [address], 5 07:15:36 CMP, serum or plasma 2024 025 [facility], [address] [place] [address], [facility] [address] [place], [address], 5 10:14:12 CBC 2024 025 [facility], [address] [place] [address], [address], [address], 5 17:00:29 streptococc us group A Ag screen [address] [facility] ([facility]), [address] [place] [address], [address], 4 17:09:58 CMP, serum or plasma 2023 024 [facility] [address] [place] [address] [facility], [address] [place] [address] [address], [place], [address], 4 11:11:09 CBC 2023 024 [facility], [address], [address], [place], [address], 21:40:00 TSH, serum or plasma 2023 024 [facility], [address], [address], [place], [address], 4 21:40:00 vitamin B12, serum 2023 024 [facility] [employer] [facility], [address] [address], [facility] [address] [place], [address], 21:40:00 Referral None recorded. Procedures None recorded. Surgeries None recorded. Imaging None recorded. Medication Orders Effexor XR 150 mg capsule,ext ended release 2024 025 [facility] 15, [address], [place], [address], 16:18:05 Effexor XR 37.5 mg capsule,ext ended release 2024 025 [facility] 15, [address], [place], [address], 5 16:18:04 Effexor XR 150 mg capsule,ext ended release 2024 025 [facility] 15, [address], [place], [address], 5 16:26:34 levothyroxi ne 88 mcg tablet 2024 025 [facility] 15, [address], [place], [address], 16:26:32 Effexor XR 75 mg capsule,ext ended release 2023 025 [facility] 15, [address], [place], [address], 19:28:24 escitalopra m 10 mg tablet 2023 024 [facility] 15, [address], [place], [address], 15:33:34 Patient TargetsNo targets recorded. Patient InstructionsNo instructions recorded. Reason for Referral None Reported. Results Created Date Observation Date Name Description Value Unit Range Abnormal Flag Note LastModifiedBy Organization Detail LastModifiedTime 08/17/20 24 08/17/2024 strep tococ cus group A Ag scree n Strep negati ve Not Available [facility] ([facility]) [address] [place], [address], 08/17/2024 15:37:19 11/30/19 25 11/29/2024 CBC WBC 7.9 x10 4.0-10 .5 Not Available [facility] [address] [facility], [place], [address], 11/29/2024 17:00:28 11/30/1911/29/2024 CBC RBC 4.19 x10 3.50-5 .50 Not Available [facility] [address] [facility], [place], [address], 11/29/2024 17:00:28 11/30/19 25 11/29/2024 CBC HGB 13.6 g/dL 12.0-1 6.0 Not Available [facility] [address] [facility], [place], [address], 11/29/2024 17:00:28 11/30/19 25 11/29/2024 CBC HCT 35.6 % 37.0-4 7.0 low Not Available [facility] [address] [facility] 1, [place], [address], 11/29/2024 17:00:28 11/30/19 25 11/29/2024 CBC MCV 84.9 fL 80.0-9 9.9 Not Available [facility] [address] [facility] 1, [place], [address], 11/29/2024 17:00:28 11/30/1911/29/2024 CBC MCH 32.5 pg 27.0-3 2.0 high Not Available [facility] [address] [facility] 1, [place], [address], 11/29/2024 17:00:28 11/30/19 25 11/29/2024 CBC MCHC 38.3 g/dL 32.0-3 6.0 high Not Available [facility] [address] [facility] 1, [place], [address], 11/29/2024 17:00:28 11/30/19 25 11/29/2024 CBC RDW 13.9 % 11.5-1 4.5 Not Available [facility] [address] [facility] 1, [place], [address], 11/29/2024 17:00:28 11/30/19 25 11/29/2024 CBC plt 378.7 x10 140.0- 451.0 Not Available [facility] [address] [facility] 1, [place], [address], 11/29/2024 17:00:28 11/30/19 25 11/29/2024 CBC lymphocytes % 30.3 % 20.0-5 0.0 Not Available [facility] [address] [facility], [place], [address], 11/29/2024 17:00:28 11/30/19 25 11/29/2024 CBC granulcytes % 59.6 % 30.0-7 0.0 Not Available [facility] [address] [facility], [place], [address], 11/29/2024 17:00:28 11/30/19 25 11/29/2024 CBC monocytes % 9.6 % 2.0-16 .0 Not Available [facility] [address] [facility], [place], [address], 11/29/2024 17:00:28 11/30/19 25 11/29/2024 CBC granulcytes# 4.7 x10 Not Freda ilable [facility] [address] [facility] 1, [place], [address], 11/29/2024 17:00:28 11/30/19 25 11/29/2024 CBC lymphocytes # 2.4 x10 Not Available [facility] [address] [facility], [place], [address], 11/29/2024 17:00:28 11/30/19 25 11/29/2024 CBC monocytes # 0.8 x10 Not Avai lable [facility] [address] [address], [place], [address], 11/29/2024 17:00:28 11/30/19 25 11/30/2024 COMPR EHENS VALENTINA METAB OLIC PANEL glucose 80 mg/dL 65-99 normal Fasti ng refer ence inter joanne Not Available [facility] [address], [place], [address], 11/30/2024 10:14:12 11/30/19 25 11/30/2024 COMPR EHENS VALENTINA METAB OLIC PANEL urea nitrogen (BUN) 8 mg/dL 7-25 normal Not Available [address], [address], 11/30/2024 10:14:12 11/30/19 25 11/30/2024 COMPR EHENS [place] METAB OLIC PANEL creatinine 0.70 mg/dL 0.50-0 .96 normal Not Available [address], [address], 11/30/2024 10:14:12 11/30/19 25 11/30/2024 COMPR EHENS [place] METAB OLIC PANEL eGFR 122 mL/mi n/1.7 3m2 > or = 60 normal Not Available [address], [address], 11/30/2024 10:14:12 11/30/19 25 11/30/2024 COMPR EHENS [place] METAB OLIC PANEL BUN/creatini ne ratio SEE NOTE: (calc ) 6-22 Not Repor christin: BUN and Creat inine are withi n refer ence range . Not Available [address], [address], 11/30/2024 10:14:12 11/30/19 25 11/30/2024 COMPR EHENS VALENTINA METAB OLIC PANEL sodium 138 mmol/ L 135-14 6 normal Not Available [address], [address], 11/30/2024 10:14:12 11/30/19 25 11/30/2024 COMPR EHENS VAL[place] METAB OLIC PANEL potassium 4.1 mmol/ L 3.5-5. 3 normal Not Available [address], [address], 11/30/2024 10:14:12 11/30/19 25 11/30/2024 COMPR EHENS VALENTINA METAB OLIC PANEL chloride 106 mmol/ L 98-110 normal Not Available [address], [place], [address], 11/30/2024 10:14:12 11/30/19 25 11/30/2024 COMPR EHENS VALENTINA METAB OLIC PANEL carbon dioxide 25 mmol/ L 20-32 normal Not Available [facility] [address], [address], 11/30/2024 10:14:12 11/30/19 25 11/30/2024 COMPR EHENS VALENTINA METAB OLIC PANEL calcium 8.6 mg/dL 8.6-10 .2 normal Not Available [address], [address], 11/30/2024 10:14:12 11/30/19 25 11/30/2024 COMPR EHENS VAL[place] METAB OLIC PANEL protein, total 7.5 g/dL 6.1-8. 1 normal Not Available [address], [address], 11/30/2024 10:14:12 11/30/19 25 11/30/2024 COMPR EHENS [place] METAB OLIC PANEL albumin 4.1 g/dL 3.6-5. 1 normal Not Available [address], [address], 11/30/2024 10:14:12 11/30/19 25 11/30/2024 COMPR EHENS VAL[place] METAB OLIC PANEL globulin 3.4 g/dL_ (calc ) 1.9-3. 7 normal Not Available [facility] [address], [address], 11/30/2024 10:14:12 11/30/19 25 11/30/2024 COMPR EHENS VAL[place] METAB OLIC PANEL albumin/glob ulin ratio 1.2 (calc ) 1.0-2. 5 normal Not Available [facility] [address], [address], 11/30/2024 10:14:12 11/30/19 25 11/30/2024 COMPR EHENS VAL[place]INA METAB OLIC PANEL bilirubin, total 0.6 mg/dL 0.2-1. 2 normal Not Available [address] [address] [place], [address], 11/30/2024 10:14:12 11/30/19 25 11/30/2024 COMPR EHENS VALENTINA METAB OLIC PANEL alkaline phosphatase 83 U/L 31-125 normal Not Available [address] [address] [place], [address], 11/30/2024 10:14:12 11/30/19 25 11/30/2024 COMPR EHENS VALENTINA METAB OLIC PANEL AST 17 U/L 10-30 normal Not Available [address] [address] [place], [address], 11/30/2024 10:14:12 11/30/19 25 11/30/2024 COMPR EHENS VALENTINA METAB OLIC PANEL ALT 12 U/L 6-29 normal Not Available [address], [address], 11/30/2024 10:14:12 11/30/19 25 11/30/2024 TSH TSH 13.23 mIU/L high Refer ence Range > or = 20 Years 0.40- 4.50 Pregn diann Range s First trime ster 0.26- 2.66 Secon d trime ster 0.55- 2.73 Third trime ster 0.43- 2.91 Not Available [address], [address], 11/30/2024 10:14:14 Result Notes None recorded. Problems Name Problem SNOMED Code Status Onset Date Resolution Date Notes Provider Name and Address Organization Details Recorded Time Pre-surg vale evaluati on Completed 202102/19/2022 PREOP EXAMINAT ION - Status is Inactive ; Recorded 02/20/20 22 8:28AM by Comfort Bejarano RN, Annotati on/Adden dum; Promoted ; acuity set as *; Not Available [facility] 3 03:12:35 Blood group O Rh(D) negative 863091177 Completed Jai Herrera MD [address] [place] [address], [address] , [facility] 3 11:16:00 Endometr itis [id number] Completed 202211/28/2024 Removal Reason: resolved NEO parsons, [facility] 5 19:31:56 Depressi ve disorder 74291082 Active 2022 NEO parsons, [facility] 5 19:32:45 Essentia l hyperten alisa 40473346 Active 2022 HOLDEN parsons, [facility] 3 12:08:08 Migraine 07166832 Active 2022 HOLDEN parsons, [facility] 3 12:08:08 Deliveri es by [id number] Completed Jai Herrera MD [address] [place] [address], [address] , [facility] 3 11:16:00 Pregnanc y 61744608 Completed 202207/15/2023 Jai Herrera MD [address] [place] [address], [address] , [facility] 3 11:16:04 Hypothyr oidism 65493639 Active 2022 HOLDEN parsons, [facility] 3 16:02:27 Anxiety disorder 423392531 Active [address] [facility], SaadL[facility]odyC[facility]ody 3 16:03:00 Problem Notes None recorded. Procedures Surgical History Date Name Laterality Status Provider Name and Address Organization Details Recorded Time 2 dilation and curettage of uterus [facility]/06/2022 11:51:07 1 delivery completed Angelica Dejuan [facility] 08/17/2024 15:33:58 extraction of wisdom tooth completed [facility] 12/06/2022 11:49:10 Imaging Results None recorded. Procedure Notes None recorded. Medical Equipment None Reported. Allergies Allergen ID Allergen Name Allergen Category Reaction Reaction Severity Criticality Documentation Date Start Date Code Code System Note Provider Name and Address Organization Details Recorded Time 23 Bactrim medicatio n rash moderate low 12/04/20222022 09004 9 RxNorm [address] [facility] 3 16:00:37 Medications Name Sig Start Date Stop Date Status Note LastModified by Organization Details LastModified Time amoxicill in 500 mg capsule TAKE 1 CAPSULE BY MOUTH EVERY 8 HOURS 01/09 completed Not Available Not Available Not Available promethaz ine-DM 6.25 mg-15 mg/5 mL oral syrup TAKE 5 TO 10 ML BY MOUTH EVERY 4 TO 6 HOURS NEEDED 01/09 completed Not Available Not Available Not Available venlafaxi ne ER 37.5 mg capsule,e xtended release 24 hr TAKE 1 CAPSULE BY MOUTH ONCE DAILY ALONG WITH ONE 150 MG CAPSULE TO TOTAL 187.5 MG DAILY active Not Available Not Available No t Available venlafaxi ne ER 75 mg capsule,e xtended release 24 hr TAKE 1 CAPSULE BY MOUTH ONCE DAILY 12/18 completed Not Available Not Available Not Available azithromy rio 250 mg tablet TAKE 1 TABLET BY MOUTH DIRECTED 01/09 completed Not Available Not Available Not Available ibuprofen 800 mg tablet TAKE 1 TABLET BY MOUTH THREE TIMES DAILY. TAKE FIRST DOSE 2 HOURS PRIOR TO TAKING MISOPROS KP. 01/13 completed Not Available Not Available Not Available ofloxacin 0.3 % eye drops INSTILL 1 DROP INTO AFFECTED EYE(S) BY OPHTHALM IC ROUTE 4 TIMES PER DAY 01/13 completed Not Available Not Available Not Available hydrocodo ne 5 mg-acetam inophen 325 mg tablet TAKE 1 TABLET BY MOUTH EVERY 6 HOURS NEEDED FOR PAIN 01/09 completed Not Available Not Available Not Available venlafaxi ne ER 150 mg capsule,e xtended release 24 hr TAKE 1 CAPSULE BY MOUTH ONCE DAILY active Not Available Not Available No t Available acetamino phen 300 mg-codein e 30 mg tablet TAKE 1 TABLET BY MOUTH EVERY 4 HOURS NEEDED FOR PAIN 01/09 completed Not Available Not Available Not Available levothyro xine 88 mcg tablet TAKE 1 TABLET BY MOUTH ONCE DAILY active Not Available Not Available No t Available Euthyrox 75 mcg tablet TAKE 1 TABLET BY MOUTH ONCE DAILY 01/09 completed Not Available Not Available Not Available Euthyrox 50 mcg tablet TAKE 1 TABLET BY MOUTH ONCE DAILY 01/09 completed Not Available Not Available Not Available lorazepam 1 mg tablet TAKE 1 TABLET BY MOUTH 1 HOUR PRIOR TO DENTAL APPOINTM ENT MUST HAVE TARIFF SUPERVISOR TO AND FROM APPOINTM ENT 01/09 completed Not Available Not Available Not Available ondansetr on 4 mg disintegr ating tablet DISSOLVE 1 TABLET IN MOUTH EVERY 6 HOURS NEEDED FOR NAUSEA AND VOMITING 07/14 completed Not Available Not Available Not Available amoxicill in 875 mg-potass ium clavulana te 125 mg tablet Take 1 tablet every 12 hours by oral route for 7 days. 06/18 completed Not Available Not Available Not Available Vitamin 27 mg iron-0.8 mg tablet Take 1 tablet every day by oral route in the morning. 11/30 completed Not Available Not Available Not Available escitalop hilario 10 mg tablet Take 1 tablet every day by oral route. 08/17 completed Not Available Not Available Not Available escitalop hilario 20 mg tablet TAKE 1 TABLET BY MOUTH ONCE DAILY IN THE MORNING 11/30 completed Not Available Not Available Not Available Vesta 0.35 mg tablet Take 1 tablet every day by oral route. 09/07 completed Not Available Not Available Not Available bupropion HCl XL 150 mg 24 hr tablet, extended release TAKE 1 TABLET BY MOUTH ONCE DAILY 08/17 completed Not Available Not Available Not Available levothyro xine 75 mcg 1 tab q d 12/04 completed Not Available Not Available Not Available [facility] Levothyro xine Sodium daily 04/29 completed Recorded 11/14/19 8:34AM by Jai Herrera MD, Annotati on/Adden dum; Refill Quantity : 90; Tablet; Not Available Not Available Not Available escitalop hilario oxalate daily 04/29 completed Dosage increase ; Recorded 07/23/20 9:50AM by RADHA Valderrama, Office Visit; Refill Quantity : 30; Tablet; Not Available Not Available Not Available RhoGAM Ultra-Heevr tered PLUS 1,500 unit (300 mcg) intramusc ular syringe INJECT 1 SYRINGE AT 03/12/23 APPT 11/30 completed Not Available Not Available Not Available levothyro xine (bulk) 75mcg 1 tab daily 04/29 completed Not Available Not Available Not Available Enskyce 0.15 mg-0.03 mg tablet TAKE 1 TABLET BY MOUTH ONCE DAILY active Not Available Not Available No t Available Vitals Date Recorded Body height Body mass index (BMI) Body weight Oxygen saturation Oxygen saturation in Arterial blood by Pulse oximetry Heart rate Respiratory rate Body temperature Systolic blood pressure Diastolic blood pressure Provider Name and Address Organization Details Last Updated DateTime 5 149.86 cm 32.7 kg/m2 78736.9 6 g 98 % 98 % 72 /min 17.99 /min 98 [degF] 110 mm[Hg] 70 mm[Hg] NEO THOMPSON [facility] 5 15:52:52 Date Recorded Body height Body mass index (BMI) Body weight Oxygen saturation Oxygen saturation in Arterial blood by Pulse oximetry Heart rate Respiratory rate Body temperature Systolic blood pressure Diastolic blood pressure Provider Name and Address Organization Details Last Updated DateTime 5 149.86 cm 32.9 kg/m2 63253.5 6 g 97 % 97 % 76 /min 18 /min 97.9 [degF] 116 mm[Hg] 80 mm[Hg] NEO THOMPSON [facility] 5 15:32:08 Date Recorded Body height Body mass index (BMI) Body weight Oxygen saturation Oxygen saturation in Arterial blood by Pulse oximetry Heart rate Respiratory rate Body temperature Systolic blood pressure Diastolic blood pressure Provider Name and Address Organization Details Last Updated DateTime 4 149.86 cm 29.1 kg/m2 50802.3 g 97 % 97 % 72 /min 20 /min 98.6 [degF] 118 mm[Hg] 70 mm[Hg] NEO THOMPSON [facility] 4 15:56:23 Date Recorded Body height Body mass index (BMI) Body weight Oxygen saturation Oxygen saturation in Arterial blood by Pulse oximetry Heart rate Respiratory rate Body temperature Systolic blood pressure Diastolic blood pressure Provider Name and Address Organization Details Last Updated DateTime 4 149.86 cm 30.5 kg/m2 62084.0 9 g 98 % 98 % 97 /min 18 /min 97.6 [degF] 120 mm[Hg] 82 mm[Hg] Angelica Zaidi [facility] 4 15:32:18 Date Recorded Body height Body mass index (BMI) Body weight Oxygen saturation Oxygen saturation in Arterial blood by Pulse oximetry Heart rate Respiratory rate Body temperature Systolic blood pressure Diastolic blood pressure Provider Name and Address Organization Details Last Updated DateTime 4 149.86 cm 31.3 kg/m2 10786.8 2 g 99 % 99 % 78 /min 20 /min 97 [degF] 118 mm[Hg] 70 mm[Hg] NEO THOMPSON [facility] 4 15:59:02 Social History Question Answer Notes LastModified by Organizat ion Details LastModified Time Tobacco Smoking Status Never Smoker HOLDEN parsons [facility] 12/06/2022 11:47:33 Do You Have An Advance Directive? No Information not available 12/06/2022 If You Are , What Was Your Level Of Alcohol Consumption Prior To ? None Information not available 12/06/2022 Do You Wear A Helmet When Biking? No Information not available 12/06/2022 Are You Blind Or Do You Have Difficulty Seeing? No Information not available 12/06/2022 What Is Your Level Of Caffeine Consumption? Occasional Information not available 12/06/2022 What Is Your Code Status? Full Code Information not available 12/06/2022 Are You Deaf Or Do You Have Serious Difficulty Hearing? No Information not available 12/06/2022 What Type Of Diet Are You Following? REGULAR Information not available 12/06/2022 What Is The Highest Grade Or Level Of School You Have Completed Or The Highest Degree You Have Received? [id number] Information not available 12/06/2022 Who Is Your Employer? [employer] Information not available 12/06/2022 Do You Work In Healthcare? No Information not available 12/06/2022 How Many Times In The Past Year Have You Used An Illegal Drug Or Used A Prescription Medication For Nonmedical Reasons? 0 Information not available 12/06/2022 What Is Your Relationship Status? Single Information not available 12/06/2022 Do You Use Your Seat Belt Or Car Seat Routinely? Yes Information not available 12/06/2022 Are You Sexually Active? Yes Information not available 12/06/2022 Do You Participate In Social Media? Yes Information not available 12/06/2022 Have You Recently Traveled Abroad? No Information not available 12/06/2022 Do You Have Difficulty Walking Or Climbing Stairs? No Information not available 12/06/2022 Are You Currently In School? No Information not available 12/06/2022 Do You Have Any Dietary Restrictions? No Information not available 12/06/2022 Sex: Unknown Functional Status Question Answer Note LastModified by Organizat ion Details LastModified Time Do you use any illicit or recreational drugs? No Information not available 12/06/2022 Do you or have you ever used any other forms of tobacco or nicotine? No Information not available 12/06/2022 What is your level of alcohol consumption? None Information not available 12/06/2022 Are you currently employed? Yes Information not available 12/06/2022 Do you have transportation difficulties? Yes Information not available 12/06/2022 Do you have difficulty doing errands alone? No Information not available 12/06/2022 Are you able to care for yourself? 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 No Information not available 12/06/2022 What is your exercise level? Occasional Information not available 12/06/2022 Mental Status Question Answer Note LastModified by Organization D etails LastModified Time Do you have difficulty concentrating, remembering or making decisions? No Information no t available 12/06/2022 Family History Relationship Description Onset Age of this Age Resolved Age Notes LastModified by Organization Details LastModified Time Father Asthma [email or web address] Not available 11:43:16 Maternal Grandmother Essential hypertension tgregg Not available 11:43:49 Paternal Grandmother Type 2 diabetes mellitus tgregg Not available 2022 11:44:16 Notes:Father: Asthma In stab le health: Mother; aneurysm x 2 Maternal Grandmother: Hypertension, Thyroid disease Mother: Aneurysm Paternal Grandfather: Coronary Artery Disease Paternal Grandmother: Diabetes Mellitus Type II, Hypertension, Thyroid disease Medical History Condition Response Coronary Artery Disease N Gout N Kidney Stones N Hyperthyroidism N Breast Cancer N Depression N COPD N Lung Disease N Hypothyroidism Y Developmental or Behavioral Disorders N Breast Problem N Difficulty Swallowing N Anesthesia Complications N Anxiety Disorder Y Meniere's disease N Muscle, Joint, or Bone Problems N Vision or Eye Problems N Arthritis N Polyps N Infertility N Cancer N Varicosities N Stroke N Endometriosis N High Cholesterol N Liver Disease N Headaches N Fibromyalgia N Kidney Disease N Allergies/Hayfever N Heart Problems N Ear or Hearing Problems N Hospitalizations N Thyroid Problems Y GI Problems N ADD/ADHD N Eating Disorder N Skin Problems N Anemia N Constipation N Mental Illness N Ovarian Cancer N Diabetes N Bedwetting N Seizures/Epilepsy N Tuberculosis N Eczema N Diverticulitis N Abuse/Domestic Violence N Asthma N Reflux/GERD N Hepatitis N Heart Disease N Pulmonary Embolism N Chronic Ear Infections N Pre-Eclampsia Y Hypertension Y Chicken Pox N Autism Spectrum Disorder (ASD) N Osteoporosis N Thrombophilias N Gynecological History Statement/Question Response Menses Monthly Y Date of LMP 09/02/2022 LMP Definite Age at First Child 1 Sexually Active? Y Obstetrics History GPAL:G 2 P 2 0 1 1 Type Value Multiple Births 0 Full Term 2 Induced 0 Spontaneous 1 Premature 0 Living 1 Ectopics 0 Total 2 Immunizations Vaccine Type Date Status Note Provider Nam e and Address Organization Details Recorded Time meningococcal MCV4, unspecified formulation 6 completed Not Available [facility] 04[facility]23 02:32:59 Past Encounters Encounter ID Performer Location Encounter Start Date Encounter Closed Date Diagnosis/Indication Diagnosis SNOMED-CT Code Diagnosis ICD10 Code Diagnosis Note [id number] Jai Herrera MD [facility] ([facility]) [address] [place] [address] [phone] 5 12/10/2022 12:49:19 02/03/2023 18:19:13 Normal in multigravida [id number] 95260 Z34.82 Gestation period, 14 weeks [id number] Z3A.14 No concerns on toady's visit. Anticipato ry guidance provided and all questions answered. Discussed wt loss and nutrition today. [id number] Jai Herrera MD [facility] ([facility]) [address] [place] [address] [id number] 5 12/22/2022 08:57:24 12/22/2022 11:12:00 [id number] Jai Herrera MD [facility]) [address] [place] [address] [id number] 5 01/09/2023 17:14:30 01/14/2023 14:13:08 Normal in multigravida [id number] 16998 Z34.82 No concerns on today's visit. Anticipato ry guidance provided and all questions answered. Gestation period, 18 weeks [id number] Z3A.18 [id number] Jai Herrera MD [facility] ([facility]) [address] [place] [address] [id number] 5 01/26/2023 17:01:40 01/26/2023 17:48:05 Normal in multigravida [id number] 21143 Z34.82 No concerns on today's visit. Anticipato ry guidance provided and all questions answered. [id number] Jai Herrera MD [facility] ([facility]) [address] [place] [address] [phone] 5 02/09/2023 17:09:47 02/09/2023 19:36:07 Normal in multigravida [id number] 85424 Z34.82 No concerns on today's visit. Anticipato ry guidance provided and all questions answered. Gestation period, 22 weeks [id number] Z3A.22 plan on Rhogam at 24-28 weeks, GTT and Tdap at next visit. [id number] Jai Herrera MD [facility] ([facility]) [address] [place] [address] [phone] 5 03/12/2023 17:15:49 03/12/2023 17:35:35 Gestation period, 27 weeks [id number] Z3A.27 Order GTT. No concerns on today's visit. Anticipato ry guidance provided and all questions answered. Normal pre gnancy in multigravida [id number] 75824 Z34.82 [id number] Jai Herrera MD [facility] ([facility]) [address] [place] [address] [phone] 5 04/01/2023 17:03:34 04/01/2023 20:25:36 [id number] Jai Herrera MD [facility] ([facility]) [address] [place] [address] [id number] 5 04/15/2023 17:18:06 04/15/2023 18:01:25 Normal in multigravida [id number] 22930 Z34.82 No concerns on today's visit. Anticipato ry guidance provided and all questions answered. Gestation period, 32 weeks [id number] Z3A.32 [id number] Jai Herrera MD [facility] ([facility]) [address] [place] [address] [id number] 5 04/29/2023 17:17:41 05/06/2023 22:26:36 Normal in multigravida [id number] 04582 Z34.82 No concerns on today's visit. Anticipato ry guidance provided and all questions answered. Gestation period, 34 weeks [id number] Z3A.34 Patient is scheduled for repeat on June 02 at 7 AM. [id number] Jai Herrera MD [facility] ([facility]) [address] [place] [address] [id number] 5 05/13/2023 17:14:18 05/13/2023 18:02:22 Normal in multigravida [id number] 95574 Z34.83 No concerns on today's visit. Anticipato ry guidance provided and all questions answered. Gestation period, 36 weeks [id number] Z3A.36 [id number] Jai Herrera MD [facility] ([facility]) [address] [place] [address] [id number] 5 05/20/2023 17:25:58 05/30/2023 08:26:58 Normal in multigravida [id number] Z34.83 No concerns on today's visit. Anticipato ry guidance provided and all questions answered. Gestation period, 37 weeks [id number] Z3A.37 [id number] Jai Herrera MD [facility] ([facility]) [address] [place] [address] [id number] 5 05/27/2023 17:16:17 05/27/2023 18:35:23 Normal in multigravida [id number] 69118 Z34.83 No concerns on today's visit. Anticipato ry guidance provided and all questions answered. Gestation period, 38 weeks [id number] Z3A.38 Plan on next week. Based on today's exam the is likely breech. [id number] DAX ROSE PA-C [facility] ([facility]) [address] [place] [address] [id number] 5 05/31/2023 15:11:25 06/07/2023 19:17:07 Seasonal allergic rhinitis 700043774 J30.2 combinatio n of allergies with congestion .REassuran ce given. No antibiotic s today. She has list of OTC meds she can take with [id number] Jai Herrera MD [facility] ([facility]) [address] [place] [address] [id number] 5 06/03/2023 17:18:07 06/10/2023 11:00:01 Normal in multigravida [id number] 38147 Z34.83 No concerns on today's visit. Anticipato ry guidance provided and all questions answered. Gestation period, 39 weeks [id number] Z3A.39 Plan on repeat section on June 04 [id number] Jai Herrera MD [facility] ([facility]) [address] [place] [address] [id number] 5 06/10/2023 12:30:27 06/10/2023 15:33:17 Endometritis [id number] N71.0 Although the patient has not had any fever or foul-smell ing discharge the uterine tenderness is concerning . Go ahead and treat with antibiotic s at this time for possible endometrit is. state 7869753 1 Z39.2 Otherwise patient appears to be recovering well from surgery. No incisional concerns. Continue restrictio ns. [id number] Jai Herrera MD [facility] ([facility]) [address] [place] [address] [id number] 5 06/18/2023 14:53:18 08/06/2023 09:08:35 Postoperative pain 552196267 G89.18 No significan t or concerning exam findings found today. Patient did have sutures placed in the top part of her uterus and this is likely contributi ng to her pain. Anticipate that this will improve. [id number] Jai Herrera MD [facility] ([facility]) [address] [place] [address] [phone] 5 07/14/2023 15:00:34 07/22/2023 21:49:35 Hypothyroidism 54935708 E03.9 Contracept ion care management 849909703 Z30.9 Start minipill. Depressive disorder 4932 3947 F32.A Restart escitalopr am and follow-up in 1 month state 7067247 1 Z39.2 Patient appears to have recovered from her . Her pelvic pain has resolved. The patient is removed from all restrictio ns at this time. [id number] Jai Herrera MD [facility] ([facility]) [address] [place] [address] [id number] 5 09/07/2023 17:08:01 09/07/2023 18:53:00 Contraception care management 362909639 Z30.9 Patient was previously on oral contracept nasra without issues and would like to restart them. Patient does not have any significan t risk factors with the medication . [id number] RADHA MARTINES-Alberto [facility] ([facility]) [address] [place] [address] [id number] 5 09/09/2023 08:35:14 09/09/2023 09:33:30 Acute conjunctivitis 30719428 H10.32 Start eye drops four times daily today. Encouraged good hand hygiene. Can use warm compresses for comfort. If worsening condition or no improvemen t in 5-7 days, return for further evaluation . If severe eye pain occurs, go to ED. Patient verbalized understand ing. [id number] Jai Herrera MD [facility] ([facility]) [address] [place] [address] [phone] 5 12/01/2023 17:10:45 12/01/2023 17:44:27 Anxiety 78582361 F41.9 Discussed medication s and will proceed with Wellbutrin . Stop Lexapro. May need to consider doing adjunct with resulting given the mood irritabili ty. Follow-up in 1 month. [id number] DAX RSOE PA-C [facility] ([facility]) [address] [place] [address] [id number] 5 01/14/2024 15:42:43 01/14/2024 18:02:21 Generalized anxiety disorder 19230304 F41.1 ok to stay on both the wellbutrin and the lexapro Fatigue 39004844 R53.83 [id number] RADHA PARK [facility] ([facility]) [address] [place] [address] [id number] 5 08/17/2024 15:17:57 08/17/2024 17:11:12 Sore throat 851782426 J02.9 Acute roxie l pharyngitis 892864593 J02.9 Push cold oral fluids including Popsicles. Alternate tylenol/mo mary kay for fever or discomfort .May use throat lozenges, chlorasept ic spray, or saltwater gargles.If you develop worsening symptoms such as unable to swallow, persistant fever, or concerns arise then return for re-eval. [id number] DAX ROSE PA-C [facility] ([facility]) [address] [place] [address] 09/20/2024 15:43:16 10/11/2024 07:13:48 Generalized anxiety disorder 78753759 F41.1 Continue with counseling . She is already taking some steps to help her with personal time. [facility] min spent with her. [id number] DAX ROSE PA-C [facility] ([facility]) [address] [place] [address] 11/29/2024 15:43:23 11/29/2024 17:59:54 Generalized anxiety disorder 78993262 F41.1 Continue with counseling . She is already taking some steps to help her with personal time. [facility] min spent with her. Hypothyroidism 37961750 E03.9 Fatigue 50285437 R53.83 [id number] DAX ROSE PA-C [facility] ([facility]) [address] [place] [address] 01/10/2025 15:23:18 01/20/2025 21:04:57 Generalized anxiety disorder 87718375 F41.1 Continue with counseling . She is already taking some steps to help her with personal time.will increase her SNRI. Listened and offered support and advice.20 min spent with her. Health Concerns Section Related Observation LastModified by Organization Detai ls LastModified Time None Recorded Concern Status LastModified by Organization Details LastModified Time None Recorded Advance Directives Directive N: Payers Insurance Date Sequence Insurance Name Policy Number Policy Ordonez Covered Member ID Ordonez Member ID Guarantor Name 02/25/2025 1 [facility] (MEDICAID HMO) Luis Eduardo Hutchins [id number] Luis Eduardo Hutchins 02/25/2025 [facility] (MEDICAID HMO) Luis Eduardo Hutchins [id number] Luis Eduardo Hutchins Notes Date Note Type Note Provider Name and Address Organization Details Recorded Time 01/14/2024 text/html Anxiety/Depressi onRep orted bypatient.Severity:de nies suicidal ideations; able to maintain relationships; does not interfere with activities of daily living Duration:chronic Onset/Timing:gradual Modifying Factors:medications as directed Associated Symptoms:high irritability;decrease d energy;fatigue I would like to discuss changing the bupropion it isnt helping the lexapro helped more I want to discuss options. I have a lot of anger issues DAX ROSE PA-C [address] [place], [address], [facility] 01/14/2024 17:01:13 08/17/2024 text/html walk in patientpatient reports last night cough and sore throat, runny nose. no meds taken. Her child had strep about 3 weeks ago and she wants checked for strep before the holiday. RADHA PARK [address] [place], [address], [facility] 08/17/2024 17:10:31 09/20/2024 text/html Anxiety/Depressi onRep orted bypatient.Severity:de nies suicidal ideations; able to maintain relationships; does not interfere with activities of daily living;increased anxiety Duration:chronic Onset/Timing:gradual Modifying Factors:counselling Associated Symptoms:denies homicidal ideations; no significant weight gain; no delusions;anxiety;dep ression;anxiety with muscle tension I am seeing Latasha Reno for counseling started in May I need to get back on my meds levothyroxine, escitalopram and wellbutrin or whatever helps me , I stopped everything went thru a bad time she thinks I need a boost to help me. DAX ROSE PA-C [address] [place], [address], [facility] 10/10/2024 19:52:36 11/29/2024 text/html Anxiety/Depressi onRep orted bypatient.Severity:de nies suicidal ideations; able to maintain relationships; does not interfere with activities of daily living;increased anxiety;has access to means to carry out suicide plan Duration:chronic Onset/Timing:gradual Modifying Factors:counselling; medications as directed Associated Symptoms:denies homicidal ideations; no significant weight gain; no significant weight loss; no visual/auditory hallucinations; no delusions; no shortness of breath; maintaining functionality I would like to increase venlafaxine and restart my thyroid medsseeing a counselor q 2 weeks. DAX ROSE PA-C [address] [place], [address], [facility] 11/29/2024 17:56:06 01/10/2025 text/html Anxiety/Depressi onRep orted bypatient.Severity:de nies suicidal ideations; able to maintain relationships; does not interfere with activities of daily living; stabilizing Duration:chronic Onset/Timing:gradual Context:major life stressors Modifying Factors:counselling; medications as directed Associated Symptoms:denies homicidal ideations; no significant weight gain; no significant weight loss; no visual/auditory hallucinations; no delusions; no shortness of breath; no crying spells; no panic; no isolation; no fatigue; sleeping well; appetite good; energy good; no apathy; maintaining functionality; no excessive worrying; no apprehension; no HTN; no muscular tension; no leaden paralysis; no posttraumatic stress disorder; no panic symptoms; no obsessive-compulsive disorder; no feelings of worthlessness; able to concentrate I think I need the Venlafaxine increasedseeing counseling consistantlyshe is leaving her due to incapatibility DAX ROSE PA-C [address] [place], [address], [facility] 01/20/2025 15:53:19 OBGyn Episode Ob Episode Information Episode Created Date Number of Fetuses Patient Bloodtype Patient rh Status Prepregnancy Weight lbs Domestic Partner Domestic Partner Phone Father Name Pulp Drier Status 12/07/19 23 1 O Negative 149.5 Howard Gardner CLOSED Fetus Data First Name Last Name Admitted to NICU Weight (g) Sex Living Outcome Pediatric Complications Fetus ID Race Codes Race Delivery Type false 3061.74 6 F Full Term 45 Problems Problem Notes Problem Name Start Date End Date Resolution Snomed Code Not e Blood group O Rh(D) negative 2 [id number] Deliveries by OTHER [id number] Jay Jay Calculation Initial Jay Jay Date Initial Exam Date Initial Exam Provider Initial Ultrasound Date Last Menstrual Period Date Ultra Sound Weeks Gestation 06/09/2023 12/10/2022 09/02/2022 0 Eighteen To Twenty Week Jay Jay Update Ultra Sound Date Fundal Height At Umbil Quickening Date Ultra Sound Latest Weeks Gestation Final Jay Jay Confirmed By Final Jay Jay Confirmed Date Final Jay Jay Date Ultra Sound Latest Days Gestation 0 06/09/20 23 0 Pre- Flowsheet Flowsheet Date 12/10/2022 Nuñez Score Blood Edema Fundus Height Fundus Units Glucose Ketones Leukocytes Nitrite Labor Signs Protein Cervic Dilation Cervic Effacement Cervic Station none Type Weight in lbs Pre/Post Dialysis Refused Weight 147.172952470845 BP Diastolic BP Location Tested BP Systolic BP Type 86 120 Fetus Heart Rate Present A 160 Fetus Movement Comments Flowsheet Date 12/22/2022 Nuñez Score Blood Edema Fundus Height Fundus Units Glucose Ketones Leukocytes Nitrite Labor Signs Protein Cervic Dilation Cervic Effacement Cervic Station Type Weight in lbs Pre/Post Dialysis Refused BP Diastolic BP Location Tested BP Systolic BP Type Fetus Heart Rate Present Fetus Movement Comments Flowsheet Date 01/09/2023 Nuñez Score Blood Edema Fundus Height Fundus Units Glucose Ketones Leukocytes Nitrite Labor Signs Protein Cervic Dilation Cervic Effacement Cervic Station Type Weight in lbs Pre/Post Dialysis Refused With clothes 148.958049147932 BP Diastolic BP Location Tested BP Systolic BP Type 76 L arm 120 sitting Fetus Heart Rate Present Fetus Movement Comments Flowsheet Date 01/26/2023 Nuñez Score Blood Edema Fundus Height Fundus Units Glucose Ketones Leukocytes Nitrite Labor Signs Protein Cervic Dilation Cervic Effacement Cervic Station Type Weight in lbs Pre/Post Dialysis Refused BP Diastolic BP Location Tested BP Systolic BP Type Fetus Heart Rate Present Fetus Movement Comments Flowsheet Date 02/09/2023 Nuñez Score Blood Edema Fundus Height Fundus Units Glucose Ketones Leukocytes Nitrite Labor Signs Protein Cervic Dilation Cervic Effacement Cervic Station neg none 22 cm none none Negative none neg Type Weight in lbs Pre/Post Dialysis Refused With clothes 152.720831881693 BP Diastolic BP Location Tested BP Systolic BP Type 70 L arm 110 sitting Fetus Heart Rate Present A 180 Fetus Movement A Yes Comments Flowsheet Date 03/12/2023 Nuñez Score Blood Edema Fundus Height Fundus Units Glucose Ketones Leukocytes Nitrite Labor Signs Protein Cervic Dilation Cervic Effacement Cervic Station neg none 28 cm none none neg Type Weight in lbs Pre/Post Dialysis Refused With clothes 156.183708763584 BP Diastolic BP Location Tested BP Systolic BP Type 70 L arm 114 sitting Fetus Heart Rate Present A 160 Fetus Movement A Yes Comments Flowsheet Date 03/20/2023 Nuñez Score Blood Edema Fundus Height Fundus Units Glucose Ketones Leukocytes Nitrite Labor Signs Protein Cervic Dilation Cervic Effacement Cervic Station Type Weight in lbs Pre/Post Dialysis Refused BP Diastolic BP Location Tested BP Systolic BP Type Fetus Heart Rate Present Fetus Movement Comments Passed 3 hour GTT Flowsheet Date 04/01/2023 Nuñez Score Blood Edema Fundus Height Fundus Units Glucose Ketones Leukocytes Nitrite Labor Signs Protein Cervic Dilation Cervic Effacement Cervic Station Type Weight in lbs Pre/Post Dialysis Refused BP Diastolic BP Location Tested BP Systolic BP Type Fetus Heart Rate Present Fetus Movement Comments Flowsheet Date 04/15/2023 Nuñez Score Blood Edema Fundus Height Fundus Units Glucose Ketones Leukocytes Nitrite Labor Signs Protein Cervic Dilation Cervic Effacement Cervic Station neg none 32 cm none none neg Type Weight in lbs Pre/Post Dialysis Refused With clothes 156.757332167023 BP Diastolic BP Location Tested BP Systolic BP Type 76 L arm 118 sitting Fetus Heart Rate Present A 140 Fetus Movement A Yes Comments Flowsheet Date 04/29/2023 Nuñez Score Blood Edema Fundus Height Fundus Units Glucose Ketones Leukocytes Nitrite Labor Signs Protein Cervic Dilation Cervic Effacement Cervic Station neg none 34 cm none none neg Type Weight in lbs Pre/Post Dialysis Refused With clothes 156.665220616908 BP Diastolic BP Location Tested BP Systolic BP Type 70 L arm 106 sitting Fetus Heart Rate Present A 150 Fetus Movement A Yes Comments Flowsheet Date 04/30/2023 Nuñez Score Blood Edema Fundus Height Fundus Units Glucose Ketones Leukocytes Nitrite Labor Signs Protein Cervic Dilation Cervic Effacement Cervic Station Type Weight in lbs Pre/Post Dialysis Refused BP Diastolic BP Location Tested BP Systolic BP Type Fetus Heart Rate Present Fetus Movement Comments Both Parshall and Allscript re cords sent to L&D, Order for sent to [facility] Scheduling for 06/02/2023 @ 0700. tcg Flowsheet Date 05/13/2023 Nuñez Score Blood Edema Fundus Height Fundus Units Glucose Ketones Leukocytes Nitrite Labor Signs Protein Cervic Dilation Cervic Effacement Cervic Station neg none 36 cm none none neg Type Weight in lbs Pre/Post Dialysis Refused Weight 158.146814983414 BP Diastolic BP Location Tested BP Systolic BP Type 74 L arm 120 standing Fetus Heart Rate Present A 150 Fetus Movement A Yes Comments Patient declined GBS since s he is a repeat . Flowsheet Date 05/20/2023 Nuñez Score Blood Edema Fundus Height Fundus Units Glucose Ketones Leukocytes Nitrite Labor Signs Protein Cervic Dilation Cervic Effacement Cervic Station neg trace 38 cm none none neg Type Weight in lbs Pre/Post Dialysis Refused With clothes 163.107142554898 BP Diastolic BP Location Tested BP Systolic BP Type 78 L arm 108 sitting Fetus Heart Rate Present A 125 Fetus Movement A Yes Comments Flowsheet Date 05/27/2023 Nuñez Score Blood Edema Fundus Height Fundus Units Glucose Ketones Leukocytes Nitrite Labor Signs Protein Cervic Dilation Cervic Effacement Cervic Station neg none 38 cm none none trace Type Weight in lbs Pre/Post Dialysis Refused With clothes 160.231913227642 BP Diastolic BP Location Tested BP Systolic BP Type 84 L arm 128 sitting Fetus Heart Rate Present A 150 Fetus Movement A Yes Comments Flowsheet Date 05/31/2023 Nuñez Score Blood Edema Fundus Height Fundus Units Glucose Ketones Leukocytes Nitrite Labor Signs Protein Cervic Dilation Cervic Effacement Cervic Station Type Weight in lbs Pre/Post Dialysis Refused With clothes 162.507890169834 BP Diastolic BP Location Tested BP Systolic BP Type 82 L arm 120 sitting Fetus Heart Rate Present Fetus Movement Comments Flowsheet Date 06/03/2023 Nuñez Score Blood Edema Fundus Height Fundus Units Glucose Ketones Leukocytes Nitrite Labor Signs Protein Cervic Dilation Cervic Effacement Cervic Station neg none 39 cm none none neg Type Weight in lbs Pre/Post Dialysis Refused With clothes 160.179338185385 BP Diastolic BP Location Tested BP Systolic BP Type 84 L arm 130 sitting Fetus Heart Rate Present A 160 Fetus Movement A Yes Comments Flowsheet Date 06/10/2023 Nuñez Score Blood Edema Fundus Height Fundus Units Glucose Ketones Leukocytes Nitrite Labor Signs Protein Cervic Dilation Cervic Effacement Cervic Station Type Weight in lbs Pre/Post Dialysis Refused With clothes 145.654329609037 BP Diastolic BP Location Tested BP Systolic BP Type 82 L arm 124 sitting Fetus Heart Rate Present Fetus Movement Comments Flowsheet Date 06/18/2023 Nuñez Score Blood Edema Fundus Height Fundus Units Glucose Ketones Leukocytes Nitrite Labor Signs Protein Cervic Dilation Cervic Effacement Cervic Station Type Weight in lbs Pre/Post Dialysis Refused With clothes 145.229714320043 BP Diastolic BP Location Tested BP Systolic BP Type 70 L arm 130 sitting Fetus Heart Rate Present Fetus Movement Comments Flowsheet Date 07/14/2023 Nuñez Score Blood Edema Fundus Height Fundus Units Glucose Ketones Leukocytes Nitrite Labor Signs Protein Cervic Dilation Cervic Effacement Cervic Station Type Weight in lbs Pre/Post Dialysis Refused Weight 139.482964699638 BP Diastolic BP Location Tested BP Systolic BP Type 78 L arm 110 sitting Fetus Heart Rate Present Fetus Movement Comments Menstrual History Last Menstrual Date Menses Monthly On Bcp Conception Prior Menses Frequency Hcg Plus Date Menarche Onset Age 1209/02/2022 true 28 Genetic Screening And Infection History Question Response Note Patient's Age Will Be 35 Yea rs Or Older At Estimated Date of Delivery false Thalassemia (Kyrgyz, Lebanese, Mediterranean, Or Background): MCV < 80 false Neural Tube Defect (Meningom yelocele, Spina Bifida, Or Anencephaly) false Congenital Heart Defect false Down Syndrome false Gonzalez-Sachs (eg, Scientologist, Cajun , Japanese-Ugandan) false Edy Disease false Sickle Cell Disease Or Trait () false Hemophilia Or Other Blood Disorders false Muscular Dystrophy false Cystic Fibrosis false Jw's Chorea false Intellectual Disability/Autism false If Yes, Was Person Tested For Fragile X? false Other Inherited Genetic Or C hromosomal Disorder false Maternal Metabolic Disorder (eg, Type 1 Diabetes, PKU) false Patient Or Baby's Father Had A Child With Defects Not Listed Above false Recurrent Loss, Or A Stillbirth true spontaneous abort in 1st trimester Medications (including Suppl ements, Vitamins, Herbs, OTC Drugs), Illicit/Recreational Drugs, Alcohol false If Yes, Agent(s) And Strength/Dosage false Any Other Genetic History false Live With Someone With TB Or Exposed To TB false Patient Or Partner Has Histo ry Of Genital Herpes false Rash Or Viral Illness Since Last Menstrual Period false History Of STD, Gonorrhea, C hlamydia, HPV, Syphilis false Other Infection History false History of HIV false History of Hepatitis false Prior GBS-infected child false Hemoglobinopathy Or Carrier false Other Structural Defect false Recent Travel History Outside of Country false Mental Retardation/Autism true brothe r Plans and Education First Trimester Discussed Date Discussion Item Discussion Note Discuss ed By 12/10/2022 Exercise dcrase 12/10/2022 Illicit/recreational drugs d kenji 12/10/2022 Weight gain counseling dcras e 12/10/2022 Use of any medicatio ns (including supplements, vitamins, herbs, or OTC drugs) dcrase 12/10/2022 Avoidance of saunas or hot tubs dcrase 12/10/2022 Tobacco/smoking cess ation counseling (ask, advise, assess, assist, and arrange) dcrase 12/10/2022 Alcohol dcrase 12/10/2022 Travel dcrase Second Trimester Discussed Date Discussion Item Discussion Note Discuss ed By Third Trimester Discussed Date Discussion Item Discussion Note Discuss ed By Delivery Information Delivery Date Delivery Type Labor Anesthesia Weeks Gestation Incision Type Labor Labor Length Hrs Delivered By Post Complications Tubal Sterilization Discharge Date Comments 3 None [facility] 39.2 Low Transvers e Jai Herrera MD None 06/06/2023 Discharge Information Feeding Method Contraceptive Method Maternal HG B and HCT Levels Ob Episode Information Episode Created Date Number of Fetuses Patient Bloodtype Patient rh Status Prepregnancy Weight lbs Domestic Partner Domestic Partner Phone Father Name Pulp Drier Status 12/07/19 23 1 CLOSED Fetus Data First Name Last Name Admitted to NICU Weight (g) Sex Living Outcome Pediatric Complications Fetus ID Race Codes Race Delivery Type 2834.95 M Full Term 44 Jay Jay Calculation Initial Jay Jay Date Initial Exam Date Initial Exam Provider Initial Ultrasound Date Last Menstrual Period Date Ultra Sound Weeks Gestation 0 Eighteen To Twenty Week Jay Jay Update Ultra Sound Date Fundal Height At Umbil Quickening Date Ultra Sound Latest Weeks Gestation Final Jay Jay Confirmed By Final Jay Jay Confirmed Date Final Jay Jay Date Ultra Sound Latest Days Gestation 0 0 Menstrual History Last Menstrual Date Menses Monthly On Bcp Conception Prior Menses Frequency Hcg Plus Date Menarche Onset Age Delivery Information Delivery Date Delivery Type Labor Anesthesia Weeks Gestation Incision Type Labor Labor Length Hrs Delivered By Post Complications Tubal Sterilization Discharge Date Comments 1 [facility] 37 32 Discharge Information Feeding Method Contraceptive Method Maternal HG B and HCT Levels
--- OUTSIDE RECORDS SUMMARY | 2025-03-16 22:20 | XMS_ITS | Clinical Summary ---
Author Organization [facility] Address [address] 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 36 Tablet 6 07/16/2018 Active Active Problems Problem Noted Date Diagnosed Date Hypothyroidism 03/22/2018 Enlarged thyroid gland 03/22/2018 Acute cystitis 05/03/2017 Abdominal pain 05/03/2017 Acute diarrhea 05/03/2017 Leukocytosis (leucocytosis) 05/03/2017 Migraine with aura and witho ut status migrainosus, not intractable 02/22/2016 Venous angioma of brain 02/22/2016 Family History Medical History Relation Name Comments Other Brother microdeletion s yndrome, autism, ADHD Stroke Maternal Grandmother TIA Migraines Neg Hx Seizures Neg Hx Relation Name Status Comments Brother Maternal Grandmother Social History Tobacco Use Types Packs/Day Years Used Date Smoking Tobacco: Never Smokeless Tobacco: Never Tobacco Cessation:Counseling Given: Yes Alcohol Use Standard Drinks/Week Comments No 0 (1 standard drink = 0.6 oz pur e alcohol) Comments No Sex and Gender Information Value Date Recorded Sex Assigned at Not on file Legal Sex Female 11:56 AM CDT Gender Identity Not on file Sexual Orientation Not on file Last Filed Vital Signs Vital Sign Reading Time Taken Comments Blood Pressure 107/81 05/14/2018 12:09 AM CDT Pulse 79 04/06/2018 3:30 AM CDT Temperature 37.1 C (98.7 F) 05/14/2018 12:09 AM CDT Respiratory Rate 18 05/14/2018 12:09 AM CDT Oxygen Saturation 100% 05/14/2018 12:09 AM CDT Inhaled Oxygen Concentration - - Weight 58.1 kg (128 lb) 05/14/2018 12:09 AM CDT Height 149.9 cm (4' 11 ) 05/14/2018 12:09 AM CDT Body Mass Index 25.85 05/14/2018 12:09 AM CDT Plan of Treatment Health Maintenance Due Date Last Done Comments HPV VACCINES (1 - 3-dose series) 2013 DTAP/TDAP/TD VACCINES (1 - Tdap) 2017 HEPATITIS B VACCINES (1 of 3 - 19+ 3-dose series) 06/21 CERVICAL CANCER SCREENING 2019 HPV/Cotest (21-29) 2019 PAP SMEAR 2019 INFLUENZA VACCINE (#1) 2024 Medical Devices Implanted Type Area Cold Type Artist Device Identifier Shelf Expiration Date Model / Serial / Lot 6fr Angio Seal Evolution-05/01 Implanted:Qty: 1 on 05/01/2016 by Alee Sanchez MD Other Right: [employer] 02/18/2017 [id number] / / [id number] Insurance RX RAE PLANS (INTERNAL) [facility] [place] Advance Directives For more information, please contact: [phone] * Full Code (Latest Code Status on File) Date Activated Date Inactivated Comments 05/01/2016 12:43 PM 05/02/2016 3:08 AM
--- OUTSIDE RECORDS SUMMARY | 2025-03-16 22:20 | XMS_ITS | Clinical Summary ---
Author Organization [employer] Address [address] 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 36 Tablet 6 07/16/2018 Active Active Problems Problem Noted Date Diagnosed Date Hypothyroidism 03/22/2018 Enlarged thyroid gland 03/22/2018 Acute cystitis 05/03/2017 Leukocytosis (leucocytosis) 05/03/2017 Acute diarrhea 05/03/2017 Abdominal pain 05/03/2017 Migraine with aura and witho ut status migrainosus, not intractable 02/22/2016 Venous angioma of brain 02/22/2016 Family History Medical History Relation Name Comments Other Brother microdeletion s yndrome, autism, ADHD Stroke Maternal Grandmother TIA Migraines Neg Hx Seizures Neg Hx Relation Name Status Comments Brother Maternal Grandmother Social History Tobacco Use Types Packs/Day Years Used Date Smoking Tobacco: Never Smokeless Tobacco: Never Alcohol Use Standard Drinks/Week Comments No 0 (1 standard drink = 0.6 oz pur e alcohol) Comments Unknown Sex and Gender Information Value Date Recorded Sex Assigned at Not on file 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 Gender Identity Not on file Sexual Orientation Not on file Last Filed Vital Signs Vital Sign Reading Time Taken Comments Blood Pressure 107/81 05/14/2018 12:09 AM CDT Pulse 79 04/06/2018 3:30 AM CDT Temperature 37.1 C (98.7 F) 05/14/2018 12:09 AM CDT Respiratory Rate 18 05/14/2018 12:09 AM CDT Oxygen Saturation - - Inhaled Oxygen Concentration - - Weight 58.1 [...] (#1) 2024 Medical Devices Implanted Type Area Shop Lead Device Identifier Shelf Expiration Date Model / Serial / Lot 6fr Angio Seal Evolution-05/01 Implanted:Qty: 1 on 05/01/2016 by Alee Sanchez MD Other Right: [employer] 02/18/2017 [id number] / / [id number] Insurance * Guarantor: REMIGIO HUTCHINS Account Type Relation to Patient Date of Phone Billing Address Personal/Family [address] [place] [id number] RX RAE PLANS (INTERNAL) [facility] [employer] Care Teams Detective Precinct Relationship Specialty Start Date End Date Gustavo Baltazar DO [address] [address] PCP - General Family Practice 02/22/16
[2025-03-16 22:21] VITALS: BP 147/88; PULSE 88; RESP 20; TEMP 36.6; O2SAT 99; BMI 30.2
[2025-03-16 23:09] VITALS: BP 141/110; PULSE 82; RESP 18; O2SAT 99
[2025-03-16] MEDS: sodium chloride 0.9% 1,000 ML 999 ML IV (23:44)
[2025-03-16] MEDS: ketorolac 30 mg/mL INJ 15 MG IVP (23:45)
[2025-03-16] MEDS: diphenhydrAMINE 50 mg/mL SDV 1mL IVP (23:45)
[2025-03-16] MEDS: prochlorperazine 10 mg/2 mL Inj IV (23:45)
[2025-03-17 02:00] VITALS: BP 140/98; PULSE 100; RESP 14; O2SAT 99
--- NOTE | 2025-03-17 18:44 | W.ED.HA ---
HPI - Headache General: Chief Complaint: Headache Stated Complaint: migraine 3 days nothing working Time Seen by Provider: 03/16/25 23:15 History of Present Illness: Patient with a history of chronic migraines and known venous angioma presents with a migraine ongoing for the past three days. Typically, ibuprofen provides relief, but this episode has not responded to usual therapy. The headache is described as located at the back of the head, with a pain intensity of 6.5 to 7 out of 10. Patient reports associated vomiting and possible dehydration. No recent fever is reported, though there are mentions of hot flashes. The patient has not required hospital treatment for migraines in several years and has been avoiding hospital visits due to family responsibilities. Previous angiogram confirmed low-pressure venous angioma with no need for intervention. Related Data Home Medications ?Medication ?Instructions ?Recorded ?Confirmed levothyroxine 25 mcg tablet 75 mcg PO DAILY 04/21/20 06/04/23 (Euthyrox) vuqaeoky-noc-Es-FA 1 mg 1 tab PO DAILY 05/17/23 06/04/23 tablet Previous Rx's ?Medication ?Instructions ?Recorded hydrocodone 5 mg-acetaminophen 325 1 tab PO Q4H PRN Moderate To 06/06/23 mg tablet Severe Pain #20 tabs lidocaine HCl 2 % mucosal solution 15 ml mucous membrane QID #100 mL 10/30/23 (Lidocaine Viscous) Allergies Allergy/AdvReac Type Severity Reaction Status Date / Time sulfamethoxazole (From Allergy ALGY-Hives Verified 10/30/23 22:33 Bactrim) trimethoprim (From Bactrim) Allergy ALGY-Hives Verified 10/30/23 22:33 [facility] ED PFSH: Medical History Hereditary cavernous hemangioma of brain Hypothyroidism Surgical History History of delivery, currently No history of previous surgery Social History Smoking and tobacco/nicotine status: never used tobacco/nicotine Alcohol intake: never Physical Exam Const: COMMON NORMALS: no acute distress, patient oriented x3 and alert HENMT: COMMON NORMALS: normocephalic and atraumatic HEAD & SCALP: normocephalic and atraumatic Eye: COMMON NORMALS: Equal, round and reactive pupils present, EOMs intact bilaterally and no scleral icterus PUPIL: Yes Equal, round and reactive pupils present Resp: COMMON NORMALS: normal respiratory effort and No retractions Cardio: COMMON NORMALS: regular rate, regular rhythm and No murmurs present (Cardio) RATE: regular rate RHYTHM: regular rhythm GI: COMMON NORMALS: Normal to inspection, nondistended, normoactive bowel sounds present, Soft to palpation and non-tender PALPATION: Yes Soft to palpation Neuro: COMMON NORMALS: patient oriented x3 SENSORIUM/ORIENTATION: Yes alert Skin: COMMON NORMALS: no rashes or lesions noted GENERAL SKIN EXAM: no rashes or lesions noted Course Vital Signs: Vital signs: Vital Signs Temperature 97.9 F 03/16/25 22:21 Pulse Rate 100 03/17/25 02:00 Respiratory Rate 14 03/17/25 02:00 Blood Pressure 140/98 03/17/25 02:00 Pulse Oximetry 99 03/17/25 02:00 Oxygen Delivery Me thod Room Air 03/16/25 23:09 MDM - Headache Medical Decision Making In summary, patient is a generally well-appearing 24-year-old female seen for 3 days of headache which she states is typical in quality and severity for her. She does not have high risk factors for intracranial bleed, mass, or other abnormality. She states she has almost complete relief of her migraine with IV fluid and medication. I do not feel further intervention or imaging is warranted. She will be discharged in stable and improved condition with follow-up primary care as needed No radiology studies performed this visit Discharge Plan Discharge Patient Disposition: Home Clinical Impression: Headache Condition: Stable Prescriptions: No Action levothyroxine [Euthyrox] 25 mcg tablet 75 mcg PO DAILY hydrocodone-acetaminophen 5-325 mg Tablet 1 tab PO Q4H PRN (Reason: Moderate To Severe Pain) Qty: 20 0RF hvxtnloi-rms-Le-FA 1 mg Tablet 1 tab PO DAILY Lidocaine Viscous 2 % solution 15 ml MUCOUS MEM QID Qty: 100 0RF Rx Instructions: Mix with water and swish for 60 seconds, then spit Discharge Orders: Discharge ED (Routine); Ordered 03/17/25 Ordered By: Lenard Phan Referrals: Jai Herrera MD [Primary Care Provider, Family Practice] Discharge Diet: Advance as tolerated Discharge Activity: Increase activity as tolerated Patient Instructions: Migraine Headache (ED), Patient Portal & Flako Instructions Print Language: Serbian Coding Level of Care Code ED Gizzard Peeler for Chapito Alfred
== END 2025-03-17 02:02 | disposition home or self-care (01) ==
PROVIDERS: Emergency Provider Student in an Organized Health Care Education/Training Program; PCP Family Medicine
DX: R51.9 Headache, unspecified (principal)
CPT/HCPCS: 96374; 96375; 99284; J0780; J1200; J1885; J7030

== ENCOUNTER 2025-05-03 08:52 | Outpatient (CLI) | payer MEDICAID, SELFPAY ==
--- NOTE | 2025-05-03 08:56 | MR_ITS ---
WS: [id number] MRI BRAIN WITH AND WITHOUT CONTRAST HISTORY: BRAIN VENOUS ANGIOMA COMPARISON: 01/23/2016 TECHNIQUE: Multiplanar imaging performed through the brain with MultiHance 17 ml's IV. No acute infarcts are seen. Bosch-white matter differentiation is well preserved. New lacunar infarct in the RIGHT cerebellum since 01/23/2016. This is not an acute infarct. Otherwise no significant small vessel disease. No additional infarcts. No hemorrhage. Ventricles and extra-axial spaces are normal. Clivus and pituitary gland are normal. No inferior displacement the cerebellar tonsils. No enhancing masses. Reidentified are the small venous angiomas in the LEFT frontal and LEFT parietal lobes. LEFT temporal lobe venous infarct is very small caliber more difficult to identify today. No new venous angioma. No AVM. Dural venous sinuses are normal. Paranasal sinuses: Small mucous retention cyst or polyp in the LEFT maxillary sinus. Decreased in size since the prior study. Better aeration in the RIGHT maxillary sinus. No air-fluid levels. Mastoid air cells: Normal. Calvarium and scalp: Normal. MR/MR head wo/w con [id number] IMPRESSION: 1. No acute infarcts or hemorrhage. 2. 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 3. Stable LEFT frontal, temporal and parietal venous angiomas. 4. No enhancing masses. 5. Improved paranasal sinusitis.
[2025-05-03] MEDS: gadobenate dimeglumine 20 mL vial IV (10:19)
== END 2025-05-03 08:53 | disposition home or self-care (01) ==
LOC: RAD 08:52
PROVIDERS: PCP Family Medicine; Visit Provider Physician Assistant
DX: D18.02 Hemangioma of intracranial structures (principal); I63.81 Other cerebral infarction due to occlusion or stenosis of small artery; G93.89 Other specified disorders of brain; J34.1 Cyst and mucocele of nose and nasal sinus
CPT/HCPCS: 70553

== ENCOUNTER 2025-06-12 16:05 | Outpatient (CLI) | payer MEDICAID, SELFPAY ==
--- NOTE | 2025-06-12 16:09 | CTR_ITS ---
PROCEDURE INFORMATION: Exam: CTA Head With Contrast, Arteriography Exam date and time: 06/12/2025 4:20 PM Age: 24 years old Clinical indication: Abnormal findings; Abnormal mri of head; Follow up to MR head; Additional info: Lacunar infarction TECHNIQUE: Suboptimal bolus timing, with significant venous opacification Imaging protocol: Computed tomographic angiography of the head with contrast. Exam focused on the arteries. 3D rendering (Not supervised by radiologist): MIP and/or 3D reconstructed images were created by the technologist. Radiation optimization: All CT scans at this facility use at least one of these dose optimization techniques: automated exposure control; mA and/or kV adjustment per patient size (includes targeted exams where dose is matched to clinical indication); or iterative reconstruction. Contrast material: OMNIPAQUE 350; Contrast volume: 100 ml; Contrast route: INTRAVENOUS (IV); COMPARISON: MR head wo/w con [id number] 05/03/2025 9:05 AM RADIATION DOSE METRICS: Total DLP (mGy-cm): 1084.3 FINDINGS: ANTERIOR CIRCULATION: Right internal carotid artery: Intracranial segment is patent with no significant stenosis. No aneurysm. Right middle cerebral artery: No occlusion or significant stenosis. No aneurysm. Right anterior cerebral artery: No occlusion or significant stenosis. No aneurysm. Left internal carotid artery: Intracranial segment is patent with no significant stenosis. No aneurysm. Left middle cerebral artery: No occlusion or significant stenosis. No aneurysm. Left anterior cerebral artery: No occlusion or significant stenosis. No aneurysm. POSTERIOR CIRCULATION: Right vertebral artery: No occlusion or significant stenosis. No aneurysm. Left vertebral artery: No occlusion or significant stenosis. No aneurysm. Basilar artery: No occlusion or significant stenosis. No aneurysm. Right posterior cerebral artery: No occlusion or significant stenosis. No aneurysm. Left posterior cerebral artery: No occlusion or significant stenosis. No aneurysm. Brain: No definite mass, mass effect, or midline shift. Cerebral ventricles: No ventriculomegaly. Bones/joints: Unremarkable. No acute fracture. Soft tissues: Unremarkable. PROCEDURE INFORMATION: Exam: CTA Neck With Contrast Exam date and time: 06/12/2025 4:20 PM Age: 24 years old Clinical indication: Abnormal findings; Abnormal mri of head; Follow up to MR head; Additional info: Lacunar infarction TECHNIQUE: Imaging protocol: Computed tomographic angiography of the neck with contrast. Exam focused on the cervical segments of the vasculature. 3D rendering (Not supervised by radiologist): MIP and/or 3D reconstructed images were created by the technologist. Radiation optimization: All CT scans at this facility use at least one of these dose optimization techniques: automated exposure control; mA and/or kV adjustment per patient size (includes targeted exams where dose is matched to clinical indication); or iterative reconstruction. Contrast material: OMNIPAQUE 350; Contrast volume: 100 ml; Contrast route: INTRAVENOUS (IV); COMPARISON: MR head wo/w con [id number] 05/03/2025 9:05 AM RADIATION DOSE METRICS: Total DLP (mGy-cm): 1084.3 FINDINGS: Right common carotid artery: No stenosis. No dissection or occlusion. Right internal carotid artery: No stenosis of the extracranial segment. No dissection or occlusion. Right external carotid artery: No occlusion or stenosis of the origin. Left common carotid artery: No stenosis. No dissection or occlusion. Left internal carotid artery: No stenosis of the extracranial segment. No dissection or occlusion. Left external carotid artery: No occlusion or stenosis of the origin. Right vertebral artery: No stenosis. No dissection or occlusion. Left vertebral artery: No stenosis. No dissection or occlusion. Aorta: Trace atheromatous vascular calcifications of aorta and carotids. Soft tissues: Normal. No significant soft tissue swelling. Bones/joints: No acute fracture. CT/CT angio headneck* [id number] IMPRESSION: No large vessel stenosis or occlusion. IMPRESSION: No definitive evidence of significant stenosis or dissection. REFERENCES: NASCET CRITERIA. The degree of stenosis in the cervical segment of the internal carotid artery is based on NASCET criteria. Normal is no stenosis. Mild is less than 50% stenosis. Moderate is 50-69% stenosis. Severe is 70% to 99% stenosis. Total occlusion is no detectable patent lumen.
[2025-06-12] MEDS: iohexol 350 mg/mL 500 mL Btl (per mL) IV (16:31)
== END 2025-06-12 16:06 | disposition home or self-care (01) ==
LOC: RAD 16:05
PROVIDERS: PCP Family Medicine; Visit Provider Physician Assistant
DX: I63.81 Other cerebral infarction due to occlusion or stenosis of small artery (principal); I70.0 Atherosclerosis of aorta
CPT/HCPCS: 70496; 70498

== ENCOUNTER 2025-06-22 06:06 | Outpatient (CLI) | payer MEDICAID, SELFPAY ==
--- NOTE | 2025-06-22 06:20 | USCV_ITS ---
Cuong Luis Eduardo Age: 24 Gender: F : 2000 Exam Date: 06/22/2025 06:33 Ordering Phys: Shira Graham Technologist: Exam Location: [facility] [place] Indication: hx of cva ? small art disease BP: 112 / 60 HR: 81 Rhythm: Sinus Technical Quality: Adequate MEASUREMENTS (Male / Female) Normal Values 2D ECHO LV Diastolic Diameter PLAX 3.4 cm 4.2 - 5.9 / 3.9 - 5.3 cm LV Systolic Diameter PLAX 2.6 cm IVS Diastolic Thickness 1.4 cm 0.6 - 1.0 / 0.6 - 0.9 cm IVS Systolic Thickness 1.5 cm LVPW Diastolic Thickness 1.3 cm 0.6 - 1.0 / 0.6 - 0.9 cm LVPW Systolic Thickness 0.7 cm LVOT Diameter 1.8 cm LV Ejection Fraction 2D Teich 46.0 % LV Ejection Fraction MOD 4C 61.8 % LV Ejection Fraction MOD 2C 62.9 % LV Ejection Fraction 2C AL 62.6 % LA Diameter 2.7 cm RA Systolic Volume 4C AL 33.0 ml RA Systolic Volume 4C MOD 31.8 ml Aorta at Sinotubular Diameter 2.5 cm IVC Diameter 1.8 cm M-MODE LA Ao Ratio MM 1.5 AV Cusp Separation MM 1.9 cm DOPPLER AV Peak Velocity 124.0 cm/s LVOT Peak Velocity 102.0 cm/s AV Area Cont Eq vti 2.3 cm squared AV Area Cont Eq pk 2.2 cm squared MV Peak Velocity 115.0 cm/s MV Area PHT 4.6 cm squared Mitral E to A Ratio 1.5 TV Peak Velocity 135.5 cm/s TR Peak Velocity 157.0 cm/s TR Peak Gradient 9.9 mmHg TV Peak E Velocity 124.0 cm/s PV Peak Velocity 104.0 cm/s FINDINGS Left Ventricle Normal left ventricular size, systolic function and wall thickness, with no regional wall motion abnormalities. Left ventricular ejection fraction is estimated at 60 %. Normal diastolic function. Right Ventricle Normal right ventricular size and systolic function. Right Atrium Normal right atrial size. Left Atrium Normal left atrial size. IA Septum Normal appearance of the interatrial septum. Mitral Valve Normal mitral valve structure. No mitral valve stenosis or regurgitation. Aortic Valve Normal aortic valve structure. No aortic valve stenosis or regurgitation. Tricuspid Valve Normal tricuspid valve structure. No tricuspid valve stenosis or regurgitation. Normal pulmonary pressure. Pulmonic Valve Normal pulmonic valve structure. No pulmonic valve stenosis or regurgitation. Pericardium No pericardial effusion. Aorta Normal diameter of the aortic root and ascending thoracic aorta. IVC Normal IVC diameter. CONCLUSIONS Normal left ventricular size, systolic function and wall thickness with ejection fraction of 60%. Normal right ventricular size and systolic function. No significant valvular abnormalities. There is no pericardial effusion. Right atrial pressure is around 5 mm of mercury. Eren Olivarez MD (Electronically Signed) Final Date: 29 June 2025 17:34 S
== END 2025-06-22 06:07 | disposition home or self-care (01) ==
LOC: RAD 06:06
PROVIDERS: PCP Family Medicine; Visit Provider Physician Assistant
DX: I25.85 Chronic coronary microvascular dysfunction (principal); Z86.73 Personal history of transient ischemic attack (TIA), and cerebral infarction without residual deficits
CPT/HCPCS: 93306

== ENCOUNTER 2025-08-26 02:02 | Emergency (ER) | payer SELFPAY ==
--- OUTSIDE RECORDS SUMMARY | 2025-08-26 02:08 | XMS_ITS | Clinical Summary ---
Author Organization [facility] Address [address] 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 Gender Identity Not on file Sexual Orientation [...] Health Maintenance Due Date Last Done Comments DTAP/TDAP/TD VACCINES (1 - Tdap) 2017 HEPATITIS B VACCINES (1 of 3 - 19+ 3-dose series) 06/21 CERVICAL CANCER SCREENING 2019 HPV/Cotest (21-29) 2019 PAP SMEAR 2019 INFLUENZA VACCINE (#1) 2025 HPV VACCINES (1 - 3-dose SCDM series) 2025 Medical Devices Implanted Type Area Sound Controller Device Identifier Shelf Expiration Date Model / Serial / Lot 6fr Angio Seal Evolution-05/01 Implanted:Qty: 1 on 05/01/2016 by Alee Sanchez MD Other Right: [employer] 02/18/2017 [id number] / / [id number] Care Teams Icer Machine Operator Relationship Specialty Start Date End Date Gustavo Baltazar DO PCP - General Family Practice 02/22/16
--- OUTSIDE RECORDS SUMMARY | 2025-08-26 02:08 | XMS_ITS | Clinical Summary ---
Author Organization [facility] Address [address] 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
--- OUTSIDE RECORDS SUMMARY | 2025-08-26 02:09 | XMS_ITS | Data Portability ---
Author Organization [facility], [place], [facility] Address [address] [address] Care Team Providers Care Banking Representative Name Role Phone DAX GRAHAM Primary Care Provider Unavailabl e Assessment No assessment recorded. Plan of Treatment Reminders Order Date Submit Date Provider Last Modified By Organization Details Last Modified Time Details Appointments None recorded. Lab CMP, serum or plasma 2024 025 [email or web address] [facility], [address] [place] [address], [address] [place], [address], 08:53:47 lipid panel, blood 2024 025 [email or web address] [facility], [address] [place] [address], [address], [place], [address], 08:53:42 PT/PTT, plasma 2024 025 [email or web address] [facility], [address] [place] [address], [address], [place], [address], 08:53:51 CBC 2024 025 [facility]e [facility], [address], [place], [address], 07:47:59 lupus anticoagula nt, dilute josué viper venom test, plasma, reflex confirmatio n 2024 025 [email or web address] 1 [facility], [address] [place] [address] 248, [address], [place], [address], 5 07:47:59 antiphospho lipid antibody panel, serum 2024 025 [email or web address] 1 [facility], [address] [place] [address] 248, [address], [place], [address], 5 07:47:59 protein C + protein S, functional panel, plasma 2024 025 [email or web address] 1 [facility], [address] [place] [address], [address], [place], [address], 5 07:47:59 factor V mutation, blood or tissue 2024 025 [email or web address] 1 [facility], [address] [place] [address], [address], [place], [address], 5 07:47:59 antithrombi n activity, plasma 2024 025 [email or web address] 1 [facility], [address] [place] [address], [address], [place], [address], 5 07:48:00 thyrotropin , QN, serum or plasma 2024 025 [email or web address] 1 [facility], [address] [place] [address], [address], [place], [address], 5 07:15:36 CMP, serum or plasma 2024 025 FARHAT [facility], [address] [place] [address], [address], [place], [address], 5 10:14:12 CBC 2024 025 FARHAT [facility], [address], [address], [place], [address], 17:00:29 Referral neurologist referral 2024 025 [email or web address] 2 [facility], [address], [address], [place], [address], 09:16:09 Procedures None recorded. Surgeries None recorded. Imaging CT, angiogram, head + neck, w/wo contrast 2024 025 [facility], [address], [place], [address], 15:18:48 US, echocardiog hilario - with bubble study 2024 025 [facility], [address], [place], [address], 10:05:55 MRI, brain, w/wo contrast 2024 [facility] (Scheduling Orders), [address], [place], [address], 12:28:44 Medication Orders Effexor XR 37.5 mg capsule,ext ended release 2024 [facility] 15, [address], [place], [address], 15:48:33 Effexor XR 150 mg capsule,ext ended release 2024 [facility] 15, [address], [place], [address], 15:48:31 Effexor XR 150 mg capsule,ext ended release 2024 025 [facility] 15, [address], [place], [address], 16:18:05 Effexor XR 37.5 mg capsule,ext ended release 2024 025 [facility] 15, [address], [place], [address], 16:18:04 Effexor XR 150 mg capsule,ext ended release 2024 025 [facility] 15, [address], [place], [address], 16:26:34 levothyroxi ne 88 mcg tablet 2024 [facility] 15, [address], [place], [address], 16:26:32 Effexor XR 75 mg capsule,ext ended release 2023 025 [facility] 15, [address], [place], [address], 19:28:24 Patient TargetsNo targets recorded. Patient InstructionsNo instructions recorded. Reason for Referral Neurologist Referral for Lac unar infarction Referring Physician: Dax Graham, Family Medicine, Encounter Date: 05/17/2025 Results Created Date Observation Date Name Description Value Unit Range Abnormal Flag Note LastModifiedBy Organization Detail LastModifiedTime 11/30/1911/29/2024 CBC WBC 7.9 x10 4.0-10 .5 Not Available [facility] [address] [facility] [address], [place], [address], 11/29/2024 17:00:28 11/30/19 25 11/29/2024 CBC RBC 4.19 x10 3.50-5 .50 Not Available [facility] [address] [facility], [place], [address], 11/29/2024 17:00:28 11/30/1911/29/2024 CBC HGB 13.6 g/dL 12.0-1 6.0 Not Available [facility] [address] [facility] [address] [facility], [place], [address], 11/29/2024 17:00:28 11/30/1911/29/2024 CBC HCT 35.6 % 37.0-4 7.0 low Not Available [facility] [address] [facility] [address] [facility] [address] [facility], [place], [address], 11/29/2024 17:00:28 11/30/1911/29/2024 CBC MCV 84.9 fL 80.0-9 9.9 Not Available [facility] [address] [facility] [address] [facility], [place], [address], 11/29/2024 17:00:28 11/30/1911/29/2024 CBC MCH 32.5 pg 27.0-3 2.0 high Not Available [facility] [address] [facility] [address] [facility], [place], [address], 11/29/2024 17:00:28 11/30/1911/29/2024 CBC MCHC 38.3 g/dL 32.0-3 6.0 high Not Available [facility] [address] [facility] [address] [facility], [place], [address], 11/29/2024 17:00:28 11/30/1911/29/2024 CBC RDW 13.9 % 11.5-1 4.5 Not Available [facility] [address] [facility] [address] [facility], [place], [address], 11/29/2024 17:00:28 11/30/1911/29/2024 CBC plt 378.7 x10 140.0- 451.0 Not Available [facility] [address] [facility], [place], [address], 11/29/2024 17:00:28 11/30/1911/29/2024 CBC lymphocytes % 30.3 % 20.0-5 0.0 Not Available [facility] [address] [facility], [place], [address], 11/29/2024 17:00:28 11/30/1911/29/2024 CBC granulcytes % 59.6 % 30.0-7 0.0 Not Available [facility] [address] [facility], [place], [address], 11/29/2024 17:00:28 11/30/1911/29/2024 CBC monocytes % 9.6 % 2.0-16 .0 Not Available [facility] [address] [facility], [place], [address], 11/29/2024 17:00:28 11/30/19 25 11/29/2024 CBC granulcytes# 4.7 x10 Not Freda ilable [facility] [address] [facility], [place], [address], 11/29/2024 17:00:28 11/30/1911/29/2024 CBC lymphocytes # 2.4 x10 Not Available [facility] [address] [facility], [place], [address], 11/29/2024 17:00:28 11/30/1911/29/2024 CBC monocytes # 0.8 x10 Not Avai lable [facility] [address] [facility], [place], [address], 11/29/2024 17:00:28 11/30/19 25 11/30/2024 COMPR EHENS [place] METAB OLIC PANEL glucose 80 mg/dL 65-99 normal Fasti ng refer ence inter joanne Not Available [address], [address], 11/30/2024 10:14:12 11/30/19 25 11/30/2024 COMPR EHENS [place] METAB OLIC PANEL urea nitrogen (BUN) 8 mg/dL 7-25 normal Not Available [address], [address], 11/30/2024 10:14:12 11/30/19 25 11/30/2024 COMPR EHENS [place] METAB OLIC PANEL creatinine 0.70 mg/dL 0.50-0 .96 normal Not Available [address], [address], 11/30/2024 10:14:12 11/30/19 25 11/30/2024 COMPR EHENS [place] METAB OLIC PANEL eGFR 122 mL/mi n/1.7 3m2 > or = 60 normal Not Available [address], [address], 11/30/2024 10:14:12 11/30/19 25 11/30/2024 COMPR EHENS [place] METAB OLIC PANEL BUN/creatini ne ratio SEE NOTE: (calc ) 6-22 Not Repor christin: BUN and Creat inine are withi n refer ence range . Not Available [address], [address], 11/30/2024 10:14:12 11/30/19 25 11/30/2024 COMPR EHENS [place] METAB OLIC PANEL sodium 138 mmol/ L 135-14 6 normal Not Available [address], [address], 11/30/2024 10:14:12 11/30/19 25 11/30/2024 COMPR EHENS [place] METAB OLIC PANEL potassium 4.1 mmol/ L 3.5-5. 3 normal Not Available [address], [address], 11/30/2024 10:14:12 11/30/19 25 11/30/2024 COMPR EHENS [place] METAB OLIC PANEL chloride 106 mmol/ L 98-110 normal Not Available [address], [address], 11/30/2024 10:14:12 11/30/19 25 11/30/2024 COMPR EHENS [place] METAB OLIC PANEL carbon dioxide 25 mmol/ L 20-32 normal Not Available [address], [address], 11/30/2024 10:14:12 11/30/19 25 11/30/2024 COMPR EHENS [place] METAB OLIC PANEL calcium 8.6 mg/dL 8.6-10 .2 normal Not Available [address], [address], 11/30/2024 10:14:12 11/30/19 25 11/30/2024 COMPR EHENS [place] METAB OLIC PANEL protein, total 7.5 g/dL 6.1-8. 1 normal Not Available [address], [address], 11/30/2024 10:14:12 11/30/19 25 11/30/2024 COMPR EHENS [place] METAB OLIC PANEL albumin 4.1 g/dL 3.6-5. 1 normal Not Available [address], [address], 11/30/2024 10:14:12 11/30/19 25 11/30/2024 COMPR EHENS [place] METAB OLIC PANEL globulin 3.4 g/dL_ (calc ) 1.9-3. 7 normal Not Available [address] [place], [address], 11/30/2024 10:14:12 11/30/19 25 11/30/2024 COMPR EHENS [place] METAB OLIC PANEL albumin/glob ulin ratio 1.2 (calc ) 1.0-2. 5 normal Not Available [address], [address], 11/30/2024 10:14:12 11/30/19 25 11/30/2024 COMPR EHENS [place] METAB OLIC PANEL bilirubin, total 0.6 mg/dL 0.2-1. 2 normal Not Available [address], [address], 11/30/2024 10:14:12 11/30/19 25 11/30/2024 COMPR EHENS [place] METAB OLIC PANEL alkaline phosphatase 83 U/L 31-125 normal Not Available [address], [address], 11/30/2024 10:14:12 11/30/19 25 11/30/2024 COMPR EHENS [place] METAB OLIC PANEL AST 17 U/L 10-30 normal Not Available [address], [address], 11/30/2024 10:14:12 11/30/19 25 11/30/2024 COMPR EHENS [place] METAB OLIC PANEL ALT 12 U/L 6-29 normal Not Available [address], [address], 11/30/2024 10:14:12 11/30/19 25 11/30/2024 TSH TSH 13.23 mIU/L high Refer ence Range > or = 20 Years 0.40- 4.50 Pregn diann Range s First trime ster 0.26- 2.66 Secon d trime ster 0.55- 2.73 Third trime ster 0.43- 2.91 Not Available [address] [place], [address], 11/30/2024 10:14:14 07/03/2007/03/2025 CBC WBC 8.7 x10 4.0-10 .5 Not Available [facility] [address], [place], [address], 07/03/2025 09:25:40 07/03/2007/03/2025 CBC RBC 4.54 x10 3.50-5 .50 Not Available [facility] [address], [place], [address], 07/03/2025 09:25:40 07/03/2007/03/2025 CBC HGB 13.7 g/dL 12.0-1 6.0 Not Available [facility] [address] [facility] [address] [facility], [place], [address], 07/03/2025 09:25:40 07/03/20 25 07/03/2025 CBC HCT 41.0 % 37.0-4 7.0 Not Available [facility] [address] [facility] 1, [place], [address], 07/03/2025 09:25:40 07/03/2007/03/2025 CBC MCV 90.4 fL 80.0-9 9.9 Not Available [facility] [address] [facility] 1, [place], [address], 07/03/2025 09:25:40 07/03/2007/03/2025 CBC MCH 30.1 pg 27.0-3 2.0 Not Available [facility] [address] [facility], [place], [address], 07/03/2025 09:25:40 07/03/2007/03/2025 CBC MCHC 33.3 g/dL 32.0-3 6.0 Not Available [facility] [address] [facility] [address], [place], [address], 07/03/2025 09:25:40 07/03/2007/03/2025 CBC RDW 12.9 % 11.5-1 4.5 Not Available [facility] [address] [facility] [address], [place], [address], 07/03/2025 09:25:40 07/03/2007/03/2025 CBC plt 447.0 x10 140.0- 451.0 Not Available [facility] [address] [facility] [address], [place], [address], 07/03/2025 09:25:40 07/03/2007/03/2025 CBC lymphocytes % 30.2 % 20.0-5 0.0 Not Available [facility] [address] [facility] [address], [place], [address], 07/03/2025 09:25:40 07/03/2007/03/2025 CBC granulcytes % 57.3 % 30.0-7 0.0 Not Available [facility] [address] [facility] [address], [place], [address], 07/03/2025 09:25:40 07/03/2007/03/2025 CBC monocytes % 9.8 % 2.0-16 .0 Not Available [facility] [address] [facility] [address], [place], [address], 07/03/2025 09:25:40 07/03/2007/03/2025 CBC granulcytes# 5.0 x10 Not Freda ilable [facility] [address] [facility] [address], [place], [address], 07/03/2025 09:25:40 07/03/2007/03/2025 CBC lymphocytes # 2.6 x10 Not Available [facility] [address] [facility] [address], [place], [address], 07/03/2025 09:25:40 07/03/2007/03/2025 CBC monocytes # 0.9 x10 Not Avai lable [facility] [address] [facility] [address], [place], [address], 07/03/2025 09:25:40 07/03/2007/10/2025 ANTIP HOSPH OLIPI D ANTIB VIKTORIYA PANEL comment SEE NOTE For fur er inqui antonette regar ding speci fic clini joe probl ems or oscar berumen labor atory test issue s, pleas e call a [facility] Custo barbara Suppo rt Repre senta tive, for refer ral to the Medic al Direc tor of Oscar berumen. Not Available [facility] [address] [address] [place], [address], 07/10/2025 07:41:59 07/03/2007/10/2025 ANTIP HOSPH OLIPI D ANTIB VIKTORIYA PANEL B2 glycoprotein I (IgG)Ab <2.0 U/mL Value Inter preta tion ----- ----- ----- ---- <20.0 Antib viktoriya not detec christin > or = 20.0 Antib viktoriya detec christin Not Available [facility] [address] [address] [place], [address], 07/10/2025 07:41:59 07/03/2007/10/2025 ANTIP HOSPH OLIPI D ANTIB VIKTORIYA PANEL B2 glycoprotein I (IgA)Ab <2.0 U/mL Value Inter preta tion ----- ----- ----- ---- <20.0 Antib viktoriya not detec christin > or = 20.0 Antib viktoriya detec christin Not Available [facility] [address], [address], 07/10/2025 07:41:59 07/03/2007/10/2025 ANTIP HOSPH OLIPI D ANTIB VIKTORIYA PANEL B2 glycoprotein I (IgM)Ab <2.0 U/mL Value Inter preta tion ----- ----- ----- ---- <20.0 Antib viktoriya not detec christin > or = 20.0 Antib viktoriya detec christin Not Available [address], [address], 07/10/2025 07:41:59 07/03/2007/10/2025 ANTIP HOSPH OLIPI D ANTIB VIKTORIYA PANEL phosphatidyl serine/ prothrombin Ab (IgG) 13 U < or = 30 For addit ional elodia selby e refer to http: //[facility] n.que stdia gnost ics.c om/fa q/FAQ 262 (This link is being provi ded for infor matio nal/e ducat ional purpo ses only. ) Not Available [address], [address], 07/10/2025 07:41:59 07/03/2007/10/2025 ANTIP HOSPH OLIPI D ANTIB VIKTORIYA PANEL phosphatidyl serine/ prothrombin Ab (IgM) 16 U < or = 30 For addit ional elodia selby e refer to http: //[employer] [facility] n.que stdia gnost ics.c om/fa q/FAQ 262 (This link is being provi ded for infor matio nal/e ducat ional purpo ses only. ) Not Available [address], [address], 07/10/2025 07:41:59 07/03/2007/10/2025 ANTIP HOSPH OLIPI D ANTIB VIKTORIYA PANEL cardiolipin Ab (IgA) <2.0 apl-U /mL Not Available [address] [address], [place], [address], 07/10/2025 07:41:59 07/03/2007/10/2025 ANTIP HOSPH OLIPI D ANTIB VIKTORIYA PANEL cardiolipin Ab (IgG) <2.0 gpl-U /mL Not Available [facility] [address] [place], [address], 07/10/2025 07:41:59 07/03/2007/10/2025 ANTIP HOSPH OLIPI D ANTIB VIKTORIYA PANEL cardiolipin Ab (IgM) <2.0 mpl-U /mL The antip hosph olipi d antib viktoriya syndr ome (APS) is a clini joe-p athol ogic corre latio n that inclu ailyn a clini joe event (e.g. arter ial or venou s throm bosis , pregn diann morbi dity) and persi stent posit valentina antip hosph olipi d antib odies (IgM, IgG Cardi olipi n or b2GPI antib odies great er than the 99th perce ntile ; or a lupus antic oagul ant). Inter natio nal conse nsus guide lines for APS sugge st waiti ng at least 12 weeks befor e retes ting to confi rm antib viktoriya persi stenc e. The Syste mickie Lupus Inter natio nal Colla borat ing Clini cs immun ologi joe class ifica tion crite daphne for syste mickie lupus eryth emato wendy (SLE) inclu de testi ng for isoty pe IgA, which has yet to be incor porat ed into APS crite daphne. Low level antip hosph olipi d antib odies may somet imes be detec christin in the setti ng of infec tion, drug thera py or aging . For addit ional infor elodia cohen e refer to http: //elizabeth torresque stdia gnost ics.c om/fa q/FAQ 109 (This link is being provi ded for infor yuliya nal/e ducat ional purpo ses only. ) Cardi olipi n Ab (IgA) Value Inter preta tion ----- ----- ----- ---- <20.0 Antib viktoriya not detec christin > or = 20.0 Antib viktoriya detec christin Cardi olipi n Ab (IgG) Value Inter preta tion ----- ----- ----- ---- <20.0 Antib viktoriya not detec christin > or = 20.0 Antib viktoriya detec christin Cardi olipi n Ab (IgM) Value Inter preta tion ----- ----- ----- ---- <20.0 Antib viktoriya not detec christin > or = 20.0 Antib viktoriya detec christin Not Available [address], [address], 07/10/2025 07:41:59 07/03/2007/10/2025 LIPID PANEL , STAND ERIN cholesterol, total 189 mg/dL <200 normal Not Available [address], [address], 07/10/2025 07:41:59 07/03/2007/10/2025 LIPID PANEL , STAND ERIN HDL cholesterol 62 mg/dL > or = 50 normal Not Available [address], [address], 07/10/2025 07:41:59 07/03/2007/10/2025 LIPID PANEL , STAND ERIN triglyceride s 111 mg/dL <150 normal Not Available [facility] [address], [address], 07/10/2025 07:41:59 07/03/2007/10/2025 LIPID PANEL , STAND ERIN LDL-choleste rol 106 mg/dL _(joe c) high Refer ence range : <100 Harry able range <100 mg/dL for prima ry preve ntion ; <70 mg/dL for patie nts with CHD or diabe tic patie nts with > or = 2 CHD risk facto rs. LDL-C is now calcu lated using the [facility] kins wale taveras n, which is a valid ated novel farhad gagnon than the Fried christiana birdie ion in the estim ation of LDL-C . Lynn berumen SS et al. NAVARRO. 2013; 310(1 9): 2061- 2068 (http ://ed ucati on.Qu La AltSchool. com/f aq/FA Q164) Not Available [address] [address] [place], [address], 07/10/2025 07:41:59 07/03/2007/10/2025 LIPID PANEL , STAND ERIN chol/HDLC ratio 3.0 (calc ) <5.0 normal Not Available [address], [address], 07/10/2025 07:41:59 07/03/2007/10/2025 LIPID PANEL , STAND ERIN non HDL cholesterol 127 mg/dL _(joe c) <130 normal For patie nts with diabe chris plus 1 major ASCVD risk facto r, treat ing to a non-H DL-C goal of <100 mg/dL (LDL- C of <70 mg/dL ) is consi irving a vishal fontaine optio n. Not Available [address], [address], 07/10/2025 07:41:59 07/03/2007/10/2025 COMPR EHENS [place] METAB OLIC PANEL glucose 86 mg/dL 65-99 normal Fasti ng refer ence inter joanne Not Available [address], [address], 07/10/2025 07:41:59 07/03/2007/10/2025 COMPR EHENS [place] METAB OLIC PANEL urea nitrogen (BUN) 14 mg/dL 7-25 normal Not Available [address], [address], 07/10/2025 07:41:59 07/03/2007/10/2025 COMPR EHENS [place] METAB OLIC PANEL creatinine 0.73 mg/dL 0.50-0 .96 normal Not Available [address], [address], 07/10/2025 07:41:59 07/03/2007/10/2025 COMPR EHENS [place] METAB OLIC PANEL eGFR 116 mL/mi n/1.7 3m2 > or = 60 normal Not Available [address], [address], 07/10/2025 07:41:59 07/03/2007/10/2025 COMPR EHENS [place] METAB OLIC PANEL BUN/creatini ne ratio SEE NOTE: (calc ) 6-22 Not Repor christin: BUN and Creat inine are withi n refer ence range . Not Available [address], [address], 07/10/2025 07:41:59 07/03/2007/10/2025 COMPR EHENS [place] METAB OLIC PANEL sodium 137 mmol/ L 135-14 6 normal Not Available [address], [address], 07/10/2025 07:41:59 07/03/2007/10/2025 COMPR EHENS [place] METAB OLIC PANEL potassium 3.9 mmol/ L 3.5-5. 3 normal Not Available [address], [address], 07/10/2025 07:41:59 07/03/2007/10/2025 COMPR EHENS [place] METAB OLIC PANEL chloride 104 mmol/ L 98-110 normal Not Available [address], [address], 07/10/2025 07:41:59 07/03/2007/10/2025 COMPR EHENS [place] METAB OLIC PANEL carbon dioxide 28 mmol/ L 20-32 normal Not Available [address], [address], 07/10/2025 07:41:59 07/03/2007/10/2025 COMPR EHENS [place] METAB OLIC PANEL calcium 9.1 mg/dL 8.6-10 .2 normal Not Available [address], [address], 07/10/2025 07:41:59 07/03/2007/10/2025 COMPR EHENS [place] METAB OLIC PANEL protein, total 7.0 g/dL 6.1-8. 1 normal Not Available [address], [address], 07/10/2025 07:41:59 07/03/2007/10/2025 COMPR EHENS [place] METAB OLIC PANEL albumin 3.9 g/dL 3.6-5. 1 normal Not Available [address], [address], 07/10/2025 07:41:59 07/03/2007/10/2025 COMPR EHENS [place] METAB OLIC PANEL globulin 3.1 g/dL_ (calc ) 1.9-3. 7 normal Not Available [address], [address], 07/10/2025 07:41:59 07/03/2007/10/2025 COMPR EHENS [place] METAB OLIC PANEL albumin/glob ulin ratio 1.3 (calc ) 1.0-2. 5 normal Not Available [address], [address], 07/10/2025 07:41:59 07/03/20 25 07/10/2025 COMPR EHENS [place] METAB OLIC PANEL bilirubin, total 0.3 mg/dL 0.2-1. 2 normal Not Available [address], [address], 07/10/2025 07:41:59 07/03/2007/10/2025 COMPR EHENS [place] METAB OLIC PANEL alkaline phosphatase 94 U/L 31-125 normal Not Available [address], [address], 07/10/2025 07:41:59 07/03/2007/10/2025 COMPR EHENS [place] METAB OLIC PANEL AST 15 U/L 10-30 normal Not Available [address], [address], 07/10/2025 07:41:59 07/03/2007/10/2025 COMPR EHENS [place] METAB OLIC PANEL ALT 13 U/L 6-29 normal Not Available [address], [address], 07/10/2025 07:41:59 07/03/2007/10/2025 PROTE IN C AND S ACTIV ITY W/REF SYLVIA TO ANTIG EN protein C, activity 119 %_nor mal 70-180 Not Available [address], [address], 07/10/2025 07:42:00 07/03/2007/10/2025 PROTE IN C AND S ACTIV ITY W/REF SYLVIA TO ANTIG EN protein S, activity 76 %_nor mal 60-140 Not Available [address], [address], 07/10/2025 07:42:00 07/03/2007/10/2025 FACTO R V (LEID EN) MUTAT ION SAULO SIS factor V (leiden) mutation NEGATI VE FACTO R V LEIDE N (R506 Q) VARIA NT NOT DETEC CHRISTIN Not Available [id number] [employer], [place], [address], 07/10/2025 07:42:00 07/03/20 25 07/10/2025 FACTO R V (LEID EN) MUTAT ION SAULO SIS interpretati on SEE BELOW INTER PRETA TION: This indiv idual is negat valentina (norm al) for the Facto r V Leide n (R506 Q) varia nt in the Facto r V gene. Incre ased risk of throm bophi kailey can be cause d by a varie ty of salvador ic and non-g eneti c facto rs not scree wei for by this assay . Labor atory testi ng super vised and resul ts monit ored by Kehinde Ford, Ph.D. , FAC , [facility], [facility]. VARIA NT SAULO SIS: The Facto r V Leide n (R506 Q) varia nt [NM_0 66561 .2:c. 1601G >A (p.R5 34Q)] in the Facto r V gene is one of the most commo n cause s of inher ited throm bophi kailey. This varia nt cause s resis tance to degra datio n of activ ated Facto r V prote in by activ ated Prote in C (APC) . The Facto r V Leide n (R506 Q) varia nt is detec christin by ampli ficat ion of the selec christin regio n of the Facto r V gene by polym erase chain react ion (PCR) and fluor escen t probe hybri dizat ion to the targe christin regio n, follo wed by end-p oint saulo sis with a real time PCR syste m. Altho ugh rare, false posit valentina or false negat valentina resul ts may occur . All resul ts shoul d be inter prete d in radha xt of clini joe findi ngs, relev ant histo ry, and other labor atory data. Healt h care provi ders, pleas e conta ct your local [facility] [place] [place] or call [phone]) for ian tance with inter preta tion of these resul ts. This test was devellie hopson and its saulo tical perfo rmanc e otto cteri stics have been deter mined by [facility] angelina Sarah . It has not been clear ed or appro jayden by the FDA. This assay has been valid ated pursu ant to the CLIA regul ation s and is used for clini joe purpo ses. Not Available [facility] [address] [address] [place], [address], 07/10/2025 07:42:00 07/03/2007/10/2025 PROTH ROMBI N W/INR + PARTI AL THROM BOPLA STIN TIMES partial thromboplast in time, activated 28 sec 23-32 normal This test has not been valid ated for monit oring unfra ction ated hepar in thera py. For testi ng that is valid ated for this type of thera py, elodia e refer to the Hepar in Anti- Xa assay (test code 64475 ). For addit ional infor elodia cohen e refer to http: //[facility] dereje berumen.Robb Grant[employer] gnost ics.c om/fa q/FAQ 159 (This link is being provi ded for infor yuliya nal/e ducat ional purpo ses only. ) Not Available [facility] [address] [address] [place], [address], 07/10/2025 07:42:00 07/03/2007/10/2025 PROTH ROMBI N W/INR + PARTI AL THROM BOPLA STIN TIMES INR 1.0 normal Refer ence Range 0.9-1 .1 Moder ate-i ntens ity Warfa rin Thera py 2.0-3 .0 Highe r-int ensit y Warfa rin Thera py 3.0-4 .0 Not Available [facility] [address] [address] [place], [address], 07/10/2025 07:42:00 07/03/2007/10/2025 PROTH ROMBI N W/INR + PARTI AL THROM BOPLA STIN TIMES PT 10.2 sec 9.0-11 .5 normal Not Available [address], [address], 07/10/2025 07:42:00 07/03/2007/10/2025 LUPUS ANTIC OAGUL ANT EVALU ATION WITH REFLE X lupus anticoagulan t not detect ed A Lupus Antic oagul ant is not detec christin. For more infor yuliya berumen on this test, go to: http: //elizabeth grantia gnost ics.c om/fa q/FAQ v2 (This link is being provi ded for infor yuliya lara/ pierce cole purpo ses only. ) ----- ----- ----- ----- ----- ----- ----- ----- ----- ----- ----- - This inter preta tion is based on the follo wing test resul ts: Not Available [address], [address], 07/10/2025 07:42:01 07/03/2007/10/2025 LUPUS ANTIC OAGUL ANT EVALU ATION WITH REFLE X PTT-la screen 34 sec < or = 40 Not Available [facility] [address], [address], 07/10/2025 07:42:01 07/03/2007/10/2025 LUPUS ANTIC OAGUL ANT EVALU ATION WITH REFLE X drvvt screen 42 sec < or = 45 Not Available [facility] [address], [address], 07/10/2025 07:42:01 07/03/2007/10/2025 ANTIT HROMB IN III ACTIV ITY W/REF L antithrombin III activity 96 %_nor mal 80-135 The major diffe renti al diagn osis of a hered itary ATIII defic iency inclu ailyn consu mptio n (i.e. recen t throm bosis or DIC), hepar in thera py, L-asp aragi nase treat ment, liver disea se, and nephr otic range prote inuri a. An eleva christin ATIII Activ ity is not clini sana signi fican t. Only defic ienci es are assoc iated with an incre ased throm botic risk. Not Available [facility] [address] [place], [address], 07/10/2025 07:42:01 05/03/20 25 05/03/2025 MRI, brain , w/wo contr ast No observ ation record ed. [email or web address] [facility] [address] [place], [address], 05/05/2025 14:41:48 06/12/20 25 06/12/2025 CT, angio gram, head + neck, w/wo contr ast No observ ation record ed. [facility] [address] [place], [address], 06/22/2025 17:30:24 06/29/2006/22/2025 , [facility] ardio gram No observ ation record ed. [facility] [address] [place], [address], 06/30/2025 16:58:42 Result Notes None recorded. Problems Name Problem SNOMED Code Status Onset Date Resolution Date Notes Provider Name and Address Organization Details Recorded Time Blood group O Rh(D) negative 451413901 Completed Jai Herrera MD [address] [place] [address], [phone] , [facility] 11:16:00 Deliveri es by [id number] Completed Jai Herrera MD [address] [place] [address], [phone] , [facility] 3 11:16:00 Anxiety disorder 327519085 Active 2021 [facility] 3 16:03:00 Pre-surg vale evaluati on Completed 202102/19/2022 PREOP EXAMINAT ION - Status is Inactive ; Recorded 02/20/20 22 8:28AM by Comfort Bejarano RN, Annotati on/Adden dum; Promoted ; acuity set as *; Not Available [facility] 3 03:12:35 Hypothyr oidism 65129526 Active 2022 [facility] 3 16:02:27 [facility] hyperten alisa 07445482 Active 2022 [facility] 3 12:08:08 Migraine 09206320 Active 2022 [facility] 3 12:08:08 Pregnanc y 63533335 Completed 202207/15/2023 Jai Herrera MD [address] [place] [address], [phone] , [facility] 3 11:16:04 Endometr itis 41413622 Completed 202211/28/2024 Removal Reason: resolved [facility] 5 19:31:56 Depressi ve disorder 03611884 Active 2022 [facility] 5 19:32:45 Generali zed anxiety disorder 16288987 Active 2024 [facility] 5 07:56:39 Anxiety 99578953 Active 2024 Arnol Zhang MD [address] [place] [address], [phone] , [facility] 5 08:19:04 Problem Notes None recorded. Procedures Surgical History Date Name Laterality Status Provider Name and Address Organization Details Recorded Time 2 dilation and curettage of uterus [facility] 12/06/2022 11:51:07 1 delivery completed Angelica Zaidi [facility] 08/17/2024 15:33:58 extraction of wisdom tooth completed [facility] 12/06/2022 11:49:10 Imaging Results None recorded. Procedure Notes None recorded. Medical Equipment None Reported. Allergies Allergen ID Allergen Name Allergen Category Reaction Reaction Severity Criticality Documentation Date Start Date Code Code System Note Provider Name and Address Organization Details Recorded Time 23 Bactrim medicatio n rash moderate low 12/04/20222022 78179 9 RxNorm [facility] 3 16:00:37 Medications Name Sig Start Date [...] CAPSULE BY MOUTH ONCE DAILY ALONG WITH 150 MG TO TOTAL 187.5 MG EVERY DAY active Not Available Not Available No t [...] BY MOUTH ONCE DAILY ALONG WITH ONE 37.5 MG FOR TOTAL 187.5 MG DAILY active Not Available Not Available No t Available acetamino phen 300 mg-codein e 30 mg tablet TAKE 1 TABLET BY MOUTH EVERY 4 HOURS NEEDED FOR PAIN 01/09 completed Not Available Not Available Not Available levothyro xine 88 mcg tablet TAKE 1 TABLET BY MOUTH ONCE DAILY active Not Available Not Available No t Available lorazepam 0.5 mg tablet TAKE 1 TABLET BY MOUTH ONCE DAILY 05/17 completed Not Available Not Available Not Available Euthyrox 75 mcg tablet TAKE 1 TABLET BY MOUTH ONCE DAILY 01/09 completed Not Available Not Available Not Available Euthyrox 50 mcg tablet TAKE 1 TABLET BY MOUTH ONCE DAILY 01/09 completed Not Available Not Available Not Available lorazepam 1 mg tablet TAKE 1 TABLET BY MOUTH 1 HOUR PRIOR TO DENTAL APPOINTM ENT MUST HAVE BRAND ATTENDANT TO AND FROM APPOINTM ENT 01/09 completed [...] completed Not Available Not Available Not Available SC Levothyro xine Sodium daily 04/29 completed Recorded 11/14/19 23 8:34AM by Jai Herrera MD, Annotati on/Adden dum; Refill Quantity : 90; Tablet; Not Available Not Available Not Available escitalop hilario oxalate daily 04/29 completed Dosage increase ; Recorded 07/23/20 22 9:50AM by RADHA Valderrama, Office Visit; Refill Quantity : 30; Tablet; Not Available Not Available Not Available RhoGAM Ultra-Hever tered PLUS 1,500 unit (300 mcg) intramusc [...] mass index (BMI) Body weight Oxygen saturation Heart rate Respiratory rate Body temperature Systolic And Diastolic Provider Name and Address Organization Details Last Updated DateTime 5 149.86 cm 32.7 kg/m2 36691.9 6 g 98 % 72 /min 17.99 /min 98 [degF] 110/70 mm[Hg] [facility]O [facility] 5 15:52:52 Date Recorded Body height Body mass index (BMI) Body weight Oxygen saturation Heart rate Respiratory rate Body temperature Systolic And Diastolic Provider Name and Address Organization Details Last Updated DateTime 5 149.86 cm 32.9 kg/m2 55874.5 6 g 97 % 76 /min 18 /min 97.9 [degF] 116/80 mm[Hg] [facility] 5 15:32:08 Date Recorded Body height Body mass index (BMI) Body weight Oxygen saturation Heart rate Respiratory rate Body temperature Systolic And Diastolic Provider Name and Address Organization Details Last Updated DateTime 5 149.86 cm 33.5 kg/m2 92653.3 3 g 99 % 80 /min 18 /min 98 [degF] 118/78 mm[Hg] NEO [facility], L.LJodyCJody 5 15:03:18 Date Recorded Body height Body mass index (BMI) Body weight Oxygen saturation Heart rate Respiratory rate Body temperature Systolic And Diastolic Provider Name and Address Organization Details Last Updated DateTime 5 149.86 cm 33.5 kg/m2 74175.3 3 g 99 % 78 /min 18 /min 97.9 [degF] 122/70 mm[Hg] NEO [facility], L.LJodyCJody 5 14:13:22 Date Recorded Body height Body mass index (BMI) Body weight Oxygen saturation Heart rate Respiratory rate Body temperature Systolic And Diastolic Provider Name and Address Organization Details Last Updated DateTime 4 149.86 cm 31.3 kg/m2 89589.8 2 g 99 % 78 /min 20 /min 97 [degF] 118/70 mm[Hg] [facility] 4 15:59:02 Social History Question Answer Notes LastModified by Organizat ion Details LastModified Time Tobacco Smoking Status Never Smoker [facility], LJodyLKiran 12/06/2022 11:47:33 Do You Have An Advance [...] Or The Highest Degree You Have Received? [id number] Information not available 12/06/2022 Who Is Your Employer? [employer] Information not available 12/06/2022 Do You Work [...] 12/06/2022 Are you able to care for yourself independently? 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 No Information not available 12/06/2022 What is [...] Breast Cancer N Depression N COPD N Hypothyroidism Y Lung Disease N Developmental or Behavioral Disorders N Breast Problem N Difficulty Swallowing N Anesthesia Complications N Meniere's disease N Anxiety Disorder Y Muscle, Joint, or Bone Problems N Vision or Eye Problems N Arthritis N Polyps N Infertility N Cancer N Varicosities N Stroke N Endometriosis N High Cholesterol N Liver Disease N Fibromyalgia N Headaches N Kidney Disease N Allergies/Hayfever N Heart Problems N Ear or Hearing Problems N Hospitalizations N Thyroid Problems Y GI Problems N ADD/ADHD N Skin Problems N Eating Disorder N Anemia N Constipation N Mental Illness N Ovarian Cancer N Diabetes N Bedwetting N Seizures/Epilepsy N Tuberculosis N Eczema N Diverticulitis N Abuse/Domestic Violence N Asthma N Reflux/GERD N Hepatitis N Heart Disease N Pulmonary Embolism N Pre-Eclampsia Y Hypertension Y Chronic Ear Infections N Osteoporosis N Chicken Pox N Autism Spectrum Disorder (ASD) N Thrombophilias N Gynecological History Statement/Question Response [...] MCV4, unspecified formulation 6 completed Not Available [facility] 04/18/2023 02:32:59 Past Encounters Encounter ID Performer Location Encounter Start Date Encounter Closed Date Diagnosis/Indication Diagnosis SNOMED-CT Code Diagnosis ICD10 Code Diagnosis IMO Codes Diagnosis Note [id number] Jai Herrera MD [facility] ([facility]) [address] [place] [id number] 5 12/10/2022 12:49:19 02/03/2023 18:19:13 Normal in multigravida [id number] 46128 Z34.82 Gestation period, 14 weeks 54628950 Z3A.14 No concerns on toady's visit. Anticipato ry guidance provided and all questions answered. Discussed wt loss and nutrition today. [id number] Jai Herrera MD [facility] ([facility]) [address] [place] [id number] 5 12/22/2022 08:57:24 12/22/2022 11:12:00 [id number] Jai Herrera MD [facility] ([facility]) [address] [place] [place] [id number] 5 01/09/2023 17:14:30 01/14/2023 14:13:08 Normal in multigravida 9475988566 84074 Z34.82 No concerns on today's visit. Anticipato ry guidance provided and all questions answered. Gestation period, 18 weeks 60413077 Z3A.18 [id number] Jai Herrera MD [facility] ([facility]) [address] [place] [place] [id number] 5 01/26/2023 17:01:40 01/26/2023 17:48:05 Normal in multigravida 3499339777 98618 Z34.82 No concerns on today's visit. Anticipato ry guidance provided and all questions answered. [id number] Jai Herrera MD [facility] ([facility]) [address] [place] [place] [address] [id number] 5 02/09/2023 17:09:47 02/09/2023 19:36:07 Normal in multigravida 2421215413 82170 Z34.82 No concerns on today's visit. Anticipato ry guidance provided and all questions answered. Gestation period, 22 weeks 58747371 Z3A.22 plan on Rhogam at 24-28 weeks, GTT and Tdap at next visit. [id number] Jai Herrera MD [facility] ([facility]) [address] [place] [address] [id number] 5 03/12/2023 17:15:49 03/12/2023 17:35:35 Gestation period, 27 weeks 70201535 Z3A.27 Order GTT. No concerns on today's visit. Anticipato ry guidance provided and all questions answered. Normal pre gnancy in multigravida 0804843606 20808 Z34.82 [id number] Jai Herrera MD [facility] ([facility]) [address] [place] [address] [id number] 5 04/01/2023 17:03:34 04/01/2023 20:25:36 [id number] Jai Herrera MD [facility] ([facility]) [address] [place] [place] [address] [id number] 5 04/15/2023 17:18:06 04/15/2023 18:01:25 Normal in multigravida 2538181656 39089 Z34.82 No concerns on today's visit. Anticipato ry guidance provided and all questions answered. Gestation period, 32 weeks 3727016 Z3A.32 [id number] Jai Herrera MD [facility] ([facility]) [address] [place] [address] [id number] 5 04/29/2023 17:17:41 05/06/2023 22:26:36 Normal in multigravida 3762033710 35859 Z34.82 No concerns on today's visit. Anticipato ry guidance provided and all questions answered. Gestation period, 34 weeks 14338029 Z3A.34 Patient is scheduled for repeat on June 02 at 7 AM. [id number] Jai Herrera MD [facility] ([facility]) [address] [place] [address] [id number] 5 05/13/2023 17:14:18 05/13/2023 18:02:22 Normal in multigravida 6201196050 08907 Z34.83 No concerns on today's visit. Anticipato ry guidance provided and all questions answered. Gestation period, 36 weeks 24915205 Z3A.36 [id number] Jai Herrera MD [facility] ([facility]) [address] [place] [id number] 5 05/20/2023 17:25:58 05/30/2023 08:26:58 Normal in multigravida 3329219928 81659 Z34.83 No concerns on today's visit. Anticipato ry guidance provided and all questions answered. Gestation period, 37 weeks 60170934 Z3A.37 [id number] Jai Herrera MD [facility] ([facility]) [address] [place] [address] [id number] 5 05/27/2023 17:16:17 05/27/2023 18:35:23 Normal in multigravida 9585922674 17899 Z34.83 No concerns on today's visit. Anticipato ry guidance provided and all questions answered. Gestation period, 38 weeks 98905211 Z3A.38 Plan on next week. Based on today's exam the infant is likely breech. [id number] DAX GRAHAM PA-C [facility] ([facility]) [address] [place] [address] [id number] 5 05/31/2023 15:11:25 06/07/2023 19:17:07 Seasonal allergic rhinitis 453614277 J30.2 combinatio n of allergies with congestion .REassuran ce given. No antibiotic s today. She has list of OTC meds she can take with [id number] Jai Herrera MD [facility] ([facility]) [address] [place] [id number] 5 06/03/2023 17:18:07 06/10/2023 11:00:01 Normal in multigravida 4514374584 87975 Z34.83 No concerns on today's visit. Anticipato ry guidance provided and all questions answered. Gestation period, 39 weeks 85219846 Z3A.39 Plan on repeat section on June 04 [id number] Jai Herrera MD [facility] ([facility]) [address] [place] [address] [id number] 5 06/10/2023 12:30:27 06/10/2023 15:33:17 Endometritis 96838809 N71.0 Although the patient has not had any fever or foul-smell ing discharge the uterine tenderness is concerning . Go ahead and treat with antibiotic s at this time for possible endometrit is. state 7038970 1 Z39.2 Otherwise patient appears to be recovering well from surgery. No incisional concerns. Continue restrictio ns. [id number] Jai Herrera MD [facility] ([facility]) [address] [place] [address] [id number] 5 06/18/2023 14:53:18 08/06/2023 09:08:35 Postoperative pain 140553163 G89.18 No significan t or concerning exam findings found today. Patient did have sutures placed in the top part of her uterus and this is likely contributi ng to her pain. Anticipate that this will improve. [id number] Jai Herrera MD [facility] ([facility]) [address] [place] [address] [id number] 5 07/14/2023 15:00:34 07/22/2023 21:49:35 Hypothyroidism 39803367 E03.9 Contracept ion care management 435724536 Z30.9 Start minipill. Depressive disorder 8055 2322 F32.A Restart escitalopr am and follow-up in 1 month state 1964740 1 Z39.2 Patient appears to have recovered from her . Her pelvic pain has resolved. The patient is removed from all restrictio ns at this time. [id number] Jai Herrera MD [facility] ([facility]) [address] [place] [address] [id number] 5 09/07/2023 17:08:01 09/07/2023 18:53:00 Contraception care management 764750635 Z30.9 Patient was previously on oral contracept nasra without issues and would like to restart them. Patient does not have any significan t risk factors with the medication . [id number] PAVEL MARTINES [facility] ([facility]) [address] [place] [address] [id number] 5 09/09/2023 08:35:14 09/09/2023 09:33:30 Acute conjunctivitis 93397997 H10.32 Start eye drops four times daily today. Encouraged good hand hygiene. Can use warm compresses for comfort. If worsening condition or no improvemen t in 5-7 days, return for further evaluation . If severe eye pain occurs, go to ED. Patient verbalized understand ing. [id number] Jai Herrera MD [facility] ([facility]) [address] [place] [address] [id number] 5 12/01/2023 17:10:45 12/01/2023 17:44:27 Anxiety 64011008 F41.9 Discussed medication s and will proceed with Wellbutrin . Stop Lexapro. May need to consider doing adjunct with resulting given the mood irritabili ty. Follow-up in 1 month. [id number] DAX GRAHAM PA-C [facility] ([facility]) [address] [place] [address] [id number] 5 01/14/2024 15:42:43 01/14/2024 18:02:21 Generalized anxiety disorder 37115510 F41.1 ok to stay on both the wellbutrin and the lexapro Fatigue 97144748 R53.83 [id number] RADHA PARK [facility] ([facility]) [address] [place] [address] [id number] 5 08/17/2024 15:17:57 08/17/2024 17:11:12 Sore throat 199907872 J02.9 Acute roxie l pharyngitis 570635269 J02.9 Push cold oral fluids including Popsicles. Alternate tylenol/mo mary kay for fever or discomfort .May use throat lozenges, chlorasept ic spray, or saltwater gargles.If you develop worsening symptoms such as unable to swallow, persistant fever, or concerns arise then return for re-eval. [id number] DAX GRAHAM PA-C [facility] ([facility]) [address] [place] [address] [id number] 5 09/20/2024 15:43:16 10/11/2024 07:13:48 Generalized anxiety disorder 80046225 F41.1 Continue with counseling . She is already taking some steps to help her with personal time. is helping more at homeshe is open to starting medication again40 min spent with her. [id number] DAX GRAHAM PA-C [facility] ([facility]) [address] [place] [address] [id number] 5 11/29/2024 15:43:23 11/29/2024 17:59:54 Generalized anxiety disorder 71237642 F41.1 Continue with counseling . She is already taking some steps to help her with personal time. is helping more at homeshe is open to starting medication again40 min spent with her. Hypothyroidism 89949265 E03.9 Fatigue 95709002 R53.83 [id number] DAX GRAHAM PA-C [facility] ([facility]) [address] [place] [address] [id number] 5 01/10/2025 15:23:18 01/20/2025 21:04:57 Generalized anxiety disorder 80588400 F41.1 Continue with counseling . She is already taking some steps to help her with personal time.will increase her SNRI. Listened and offered support and advice.20 min spent with her. [id number] DAX GRAHAM PA-C [facility] ([facility]) [address] [place] [address] [id number] 5 04/04/2025 14:46:45 04/10/2025 12:00:01 Venous hemangioma of brain 708236998 D18.02 [id number] due to increase in her headache days and intensity I would like to f/u on her previously dx of venous angioma and make sure not contributi ng to her symtpoms Frequent headache 106380 003 R51.9 53124971 Generalize d anxiety disorder 07590228 F41.1 [id number] DAX GRAHAM PA-C [facility] [address] [place] [address] 05/17/2025 14:08:07 05/23/2025 14:32:04 Lacunar infarction 070549976 I63.81 439612 due to her age and old lacunar infarct found with do work up to see if reason can be forund and send her neurology as well. Venous hemangioma 991940 005 D18.00 [id number] Health Concerns Section Related Observation LastModified by Organization Detai ls LastModified Time None Recorded Concern Status LastModified by Organization Details LastModified Time None Recorded Advance Directives Directive N: Payers Insurance Date Sequence Insurance Name Policy Number Policy Ordonez Covered Member ID Ordonez Member ID Guarantor Name 07/03/2025 1 [facility] (MEDICAID HMO) Luis Eduardo Hutchins [id number] Luis Eduardo Hutchins 07/03/2025 [facility] (MEDICAID HMO) Luis Eduardo Hutchins [id number] Luis Eduardo Hutchins Notes Date Note Type Note Provider Name and Address Organization Details Recorded Time 024 text/ht ml Anxiety/DepressionReported by PatientHPIFor severity, patient reportsincreased anxietybut reportsdenies suicidal ideations,able to maintain relationships, anddoes not interfere with activities of daily living. For associated symptoms, patient reportsanxiety,depression, andanxiety with muscle tensionbut reportsdenies homicidal ideations,no significant weight gain, andno delusions. For duration, patient reportschronic. For onset/timing, patient reportsgradual. For modifying factors, patient reportscounselling. I am seeing Latashamarlyn [place] for counseling started in May I need to get back on my meds levothyroxine, escitalopram and wellbutrin or whatever helps me , I stopped everything went thru a bad time she thinks I need a boost to help me. DAX GRAHAM PA-C [address] [place], [phone], [facility], [place] 10/10/2024 19:52:36 025 text/ht ml Anxiety/DepressionReported by PatientHPIFor severity, patient reportsincreased anxietyandhas access to means to carry out suicide planbut reportsdenies suicidal ideations,able to maintain relationships, anddoes not interfere with activities of daily living. For duration, patient reportschronic. For onset/timing, patient reportsgradual. For modifying factors, patient reportscounsellingandmedications as directed. For associated symptoms, patient reportsdenies homicidal ideations,no significant weight gain,no significant weight loss,no visual/auditory hallucinations,no delusions,no shortness of breath, andmaintaining functionality. I would like to increase venlafaxine and restart my thyroid medsseeing a counselor q 2 weeks. DAX GRAHAM PA-C [address] [place] [address], [phone], [facility] 11/29/2024 17:56:06 025 text/ht ml Anxiety/DepressionReported by PatientHPIFor context, patient reportsmajor life stressors. For severity, patient reportsdenies suicidal ideations,able to maintain relationships,does not interfere with activities of daily living, andstabilizing. For duration, patient reportschronic. For onset/timing, patient reportsgradual. For modifying factors, patient reportscounsellingandmedications as directed. For associated symptoms, patient reportsdenies homicidal ideations,no significant weight gain,no significant weight loss,no visual/auditory hallucinations,no delusions,no shortness of breath,no crying spells,no panic,no isolation,no fatigue,sleeping well,appetite good,energy good,no apathy,maintaining functionality,no excessive worrying,no apprehension,no htn,no muscular tension,no leaden paralysis,no posttraumatic stress disorder,no panic symptoms,no obsessive-compulsive disorder,no feelings of worthlessness, andable to concentrate. I think I need the Venlafaxine increasedseeing counseling consistantlyshe is leaving her due to incapatibility DAX GRAHAM PA-C [address] [place], [phone], [facility] 01/20/2025 15:53:19 025 text/ht ml HeadacheReported by PatientHPIFor quality, patient reportsburning,aching,throbbing,tig htness,pain,tension, andcontinuousbut reportsnot the worst headache everandsimilar to previous headaches. For location, patient reportsoccipital,temporal, anddeep. For severity, patient reportsmoderate. For duration, patient reportsintermittent episodes lasting:[id number] days/month. For onset/timing, patient reportsgradual,occur late in day, andrecurrent. For aggravating factors, patient reportsloud noise,visual stimuli or light,worse with upright position,worse with valsalva maneuver,specific food:,moving head, andexercise. For alleviating factors, patient reportslaying in a dark roomandsleep. age 15 venous angioma low pressure. [place] Migraines about 1x/week but can last daysAt home uses NsAids. been worse last 18 mouth. at point in her youth tried amitriptyline and topamax. with cadena gets the photophobia and nausea/vomiting no diplopia. DAX GRAHAM PA-C [address] [place] [address], [id number], [facility], [place]. 04/07/2025 16:29:46 025 text/ht ml HeadacheReported by PatientHPIFor quality, patient reportsthrobbing,tightness, andtension. For location, patient reportsoccipitalandparietal. For severity, patient reportsmoderate. For duration, patient [id number] days/month. For onset/timing, patient reportsgradual,gone now,occur every few weeks, andrecurrent. For context, patient reportsnot related to trauma. For aggravating factors, patient reportsloud noiseandvisual stimuli or light. For alleviating factors, patient reportsotc medication. discuss mri of brainWe did a MRI of her brain due to increasing CADENA freq and her having a hx of venous angiomas. On MRI the venous angiomas were stable but a old lacunar infarct was seen in the right cerebellum.Pt does not remember having any stroke like symptoms. She gets freq migraines. Her old son who is 4, she has a severe preeclampsia with and her BP got very high during his delivery. She has not hx of clotting or bleeding disorders. No hx of autoimmune disorders. No seizures. 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 Status 12/07/19 23 1 O Negative 149.5 Howard Gardner CLOSED Fetus Data First Name Last Name Admitted to NICU Weight (g) Sex Living Outcome Pediatric Complications Fetus ID Race Codes Race Delivery Type false 3061.74 6 F Full Term 45 Problems Problem Notes Problem Name Start Date End Date Resolution Snomed Code Not e Blood group O Rh(D) negative 2 [id number] Deliveries by OTHER 04 Jay Jay Calculation Initial Jay Jay [...] Latest Days Gestation 0 06/09/20 23 0 Pre-hubert Flowsheet Flowsheet Date 12/10/2022 Nuñez Score Blood Edema Fundus Height Fundus Units Glucose Ketones Leukocytes Nitrite Labor Signs Protein Cervic Dilation Cervic Effacement Cervic Station none Type Weight in lbs Pre/Post Dialysis Refused Weight 147.204070424444 BP Diastolic BP Location Tested BP Systolic [...] in lbs Pre/Post Dialysis Refused With clothes 148.005527200402 BP Diastolic BP Location Tested BP Systolic [...] in lbs Pre/Post Dialysis Refused With clothes 152.201772027809 BP Diastolic BP Location Tested BP Systolic [...] in lbs Pre/Post Dialysis Refused With clothes 156.114152714291 BP Diastolic BP Location Tested BP Systolic [...] in lbs Pre/Post Dialysis Refused With clothes 156.997476959691 BP Diastolic BP Location Tested BP Systolic [...] in lbs Pre/Post Dialysis Refused With clothes 156.955455624864 BP Diastolic BP Location Tested BP Systolic [...] Heart Rate Present Fetus Movement Comments Both [place] and Allscript re cords sent to L&D, Order for sent to [facility] Scheduling for 06/02/2023 @ 0700. tcg Flowsheet Date 05/13/2023 Nuñez Score Blood Edema Fundus Height Fundus Units Glucose Ketones Leukocytes Nitrite Labor Signs Protein Cervic Dilation Cervic Effacement Cervic Station neg none 36 cm none none neg Type Weight in lbs Pre/Post Dialysis Refused Weight 158.179541681229 BP Diastolic BP Location Tested BP Systolic [...] in lbs Pre/Post Dialysis Refused With clothes 163.724947637061 BP Diastolic BP Location Tested BP Systolic [...] in lbs Pre/Post Dialysis Refused With clothes 160.877825213751 BP Diastolic BP Location Tested BP Systolic BP Type 84 L arm 128 sitting Fetus Heart Rate Present A 150 Fetus Movement A Yes Comments Flowsheet Date 05/31/2023 Nuñez Score Blood Edema Fundus Height Fundus Units Glucose Ketones Leukocytes Nitrite Labor Signs Protein Cervic Dilation Cervic Effacement Cervic Station Type Weight in lbs Pre/Post Dialysis Refused With clothes 162.737181327052 BP Diastolic BP Location Tested BP Systolic BP Type 82 L arm 120 sitting Fetus Heart Rate Present Fetus Movement Comments Flowsheet Date 06/03/2023 Nuñez Score Blood Edema Fundus Height Fundus Units Glucose Ketones Leukocytes Nitrite Labor Signs Protein Cervic Dilation Cervic Effacement Cervic Station neg none 39 cm none none neg Type Weight in lbs Pre/Post Dialysis Refused With clothes 160.506810433593 BP Diastolic BP Location Tested BP Systolic BP Type 84 L arm 130 sitting Fetus Heart Rate Present A 160 Fetus Movement A Yes Comments Flowsheet Date 06/10/2023 Nuñez Score Blood Edema Fundus Height Fundus Units Glucose Ketones Leukocytes Nitrite Labor Signs Protein Cervic Dilation Cervic Effacement Cervic Station Type Weight in lbs Pre/Post Dialysis Refused With clothes 145.890604739923 BP Diastolic BP Location Tested BP Systolic BP Type 82 L arm 124 sitting Fetus Heart Rate Present Fetus Movement Comments Flowsheet Date 06/18/2023 Nuñez Score Blood Edema Fundus Height Fundus Units Glucose Ketones Leukocytes Nitrite Labor Signs Protein Cervic Dilation Cervic Effacement Cervic Station Type Weight in lbs Pre/Post Dialysis Refused With clothes 145.388191817441 BP Diastolic BP Location Tested BP Systolic BP Type 70 L arm 130 sitting Fetus Heart Rate Present Fetus Movement Comments Flowsheet Date 07/14/2023 Nuñez Score Blood Edema Fundus Height Fundus Units Glucose Ketones Leukocytes Nitrite Labor Signs Protein Cervic Dilation Cervic Effacement Cervic Station Type Weight in lbs Pre/Post Dialysis Refused Weight 139.940945141385 BP Diastolic BP Location Tested BP Systolic [...] At Estimated Date of Delivery false Thalassemia (Monegasque, Vietnamese, Mediterranean, Or Background): MCV < 80 false Neural Tube Defect (Meningom yelocele, Spina Bifida, Or Anencephaly) false Congenital Heart Defect false Down Syndrome false Gonzalez-Sachs (eg, Uatsdin, Cajun , Central African-Mccook) false Edy Disease false Sickle Cell Disease Or Trait () false Hemophilia Or Other Blood Disorders false Muscular Dystrophy false Cystic Fibrosis false Uinta's Chorea false Intellectual Disability/Autism false If Yes, [...] By 12/10/2022 Exercise dcrase 12/10/2022 Illicit/recreational drugs willard herrera 12/10/2022 Weight gain counseling dcras e 12/10/2022 [...] Domestic Partner Domestic Partner Phone Father Name 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
[2025-08-26 02:13] VITALS: BP 131/94; PULSE 105; RESP 18; TEMP 36.8; O2SAT 98; BMI 31.3
--- NOTE | 2025-08-26 02:37 | XRR_ITS ---
PROCEDURE INFORMATION: Exam: XR Chest Exam date and time: 08/26/2025 2:37 AM Age: 25 years old Clinical indication: Cough and shortness of breath; Cough with SOB TECHNIQUE: Imaging protocol: Radiologic exam of the chest. Views: 1 view. COMPARISON: No relevant prior studies available. FINDINGS: Lungs: Unremarkable. No consolidation. Pleural spaces: Unremarkable. No pleural effusion. No pneumothorax. Heart/Mediastinum: Unremarkable. No cardiomegaly. Bones/joints: Unremarkable. XR/XR chest 1V portable [id number] IMPRESSION: No acute findings.
--- NOTE | 2025-08-26 02:47 | W.ED.URI ---
HPI - URI/Sore Throat General: Chief Complaint: Upper Respiratory Infection Stated Complaint: cough,sob Time Seen by Provider: 08/26/25 02:19 History of Present Illness: Healthy 25-year-old female with a cough for 2 weeks. Cough has been on and off. She has not had fever. She has had prolonged coughing fits with posttussive vomiting. No diarrhea. Some difficulty breathing. Pain with inspiration. Her 2-year-old daughter is also here sick. Related Data Home Medications ?Medication ?Instructions ?Recorded ?Confirmed levothyroxine 25 mcg tablet 75 mcg PO DAILY 04/21/20 06/04/23 (Euthyrox) [id number] 1 mg 1 tab PO DAILY 05/17/23 06/04/23 tablet Previous Rx's ?Medication ?Instructions ?Recorded hydrocodone 5 mg-acetaminophen 325 1 tab PO Q4H PRN Moderate To 06/06/23 mg tablet Severe Pain #20 tabs lidocaine HCl 2 % mucosal solution 15 ml mucous membrane QID #100 mL 10/30/23 (Lidocaine Viscous) albuterol sulfate 90 mcg/actuation 2 inh inhalation Q4H PRN shortness 08/26/25 aerosol inhaler of breath or wheezing #6.7 grams azithromycin 250 mg tablet See Rx Instructions PO .COMPLEX #6 08/26/25 tabs methylprednisolone 4 mg tablets in See Rx Instructions PO .COMPLEX 08/26/25 a dose pack (Medrol (Drew)) #21 ea Allergies Allergy/AdvReac Type Severity Reaction Status Date / Time sulfamethoxazole (From Allergy ALGY-Hives Verified 10/30/23 22:33 Bactrim) trimethoprim (From Bactrim) Allergy ALGY-Hives Verified 10/30/23 22:33 [facility] ED PFS: Medical History Hereditary cavernous hemangioma of brain Hypothyroidism Surgical History History of delivery, currently No history of previous surgery Social History Smoking and tobacco/nicotine status: never used tobacco/nicotine Alcohol intake: never Physical Exam Const: COMMON NORMALS: no acute distress GENERAL APPEARANCE: cooperative; not frail appearing HENMT: COMMON NORMALS: normocephalic, atraumatic and Normal external nose present HEAD & SCALP: normocephalic and atraumatic FACE & SINUS: normal facial exam and face symmetric NOSE: Normal external nose present Eye: COMMON NORMALS: Equal, round and reactive pupils present and EOMs intact bilaterally PUPIL: Yes Equal, round and reactive pupils present Neck/C-Spine: GENERAL: Yes trachea midline Chest: CHEST: Yes Symmetrical chest wall rise Resp: COMMON NORMALS: normal respiratory effort, No retractions, No use of accessory muscles and clear to auscultation bilaterally AUSCULTATION: clear to auscultation bilaterally Cardio: COMMON NORMALS: regular rate and regular rhythm RATE: regular rate RHYTHM: regular rhythm GI: COMMON NORMALS: Normal to inspection, nondistended, normoactive bowel sounds present Extremity: COMMON NORMALS: no pedal edema Neuro: [place] COMA SCALE: document GCS findings [place] coma scale eye opening: Spontaneous [place] coma scale verbal response: Orientated [place] coma scale motor response: Obey commands [place] coma scale total score: 15 SENSORY EXAM: Yes extremities (intact) Psych: COMMON NORMALS: speech normal SPEECH: Yes normal speech Skin: COMMON NORMALS: no rashes or lesions noted GENERAL SKIN EXAM: no rashes or lesions noted Course Vital Signs: Vital signs: Vital Signs Temperature 98.3 F 08/26/25 02:13 Pulse Rate 105 H 08/26/25 02:13 Respiratory Rate 18 08/26/25 02:13 Blood Pressure 131/94 08/26/25 02:13 Pulse Oximetry 98 08/26/25 02:13 MDM - URI/Sore Throat Medical Decision Making Vitals are stable here. Room air saturation is 98%. She is afebrile. Chest x-ray is negative. Swab was sent for respiratory viruses. She is covered with azithromycin. She is given prednisone here. Will continue a tapering dose of methylprednisolone, along with azithromycin. She will be prescribed albuterol. She is stable for discharge. Outpatient follow-up. Return for worsening symptoms. Lab Data Radiology Impressions Chest X-Ray 08/26/25 02:37 IMPRESSION: No acute findings. All radiology interpretation(s) finalized by discharge Discharge Plan Discharge Patient Disposition: Home Clinical Impression: Bronchitis Condition: Stable Prescriptions: New methylprednisolone [Medrol (Drew)] 4 mg tablets,dose pack See Rx Instructions .ROUTE .COMPLEX Qty: 21 0RF Rx Instructions: orally per package directions albuterol sulfate 90 mcg/actuation HFA aerosol inhaler 2 inh INHALATION Q4H PRN (Reason: shortness of breath or wheezing) Qty: 6.7 1RF azithromycin 250 mg tablet See Rx Instructions .ROUTE .COMPLEX Qty: 6 0RF Rx Instructions: For 250 mg dose pack: take 500 mg today (day 1), then 250 mg for 4 days (days 2-5) No Action levothyroxine [Euthyrox] 25 mcg tablet 75 mcg PO DAILY hydrocodone-acetaminophen 5-325 mg Tablet 1 tab PO Q4H PRN (Reason: Moderate To Severe Pain) Qty: 20 0RF [id number]-FA 1 mg Tablet 1 tab PO DAILY Lidocaine Viscous 2 % solution 15 ml MUCOUS MEM QID Qty: 100 0RF Rx Instructions: Mix with water and swish for 60 seconds, then spit Discharge Orders: Discharge ED (Routine); Ordered 08/26/25 Ordered By: Darrin Johnson Referrals: Jai Herrera MD [Primary Care Provider, Family Practice] - 1-3 days Patient Instructions: Acute Bronchitis (ED), Opioid Safety, Pain Management, Patient Portal & Flako Instructions Activity Restrictions/Additional Instructions: Medication as directed. Use your inhaler every 4 hours while awake scheduled for the first 48 hours, then as needed. Return for any problems. Call your doctor Thursday morning for a follow-up appointment. Print Language: Greenlandic Coding Level of Care Code ED [employer] for Chapito Alfred
[2025-08-26 04:43] LABS: Coronavirus 229E,HKU1,NL63,OC4 Not Detected (NOT DETECT); Parainfluenza Virus Type 1 Detected (NOT DETECT); Parainfluenza Virus Type 2 Not Detected (NOT DETECT); Parainfluenza Virus Type 3 Not Detected (NOT DETECT); Parainfluenza Virus Type 4 Not Detected (NOT DETECT); SARS-COV-2 Not Detected (NOT DETECT)
== END 2025-08-26 04:24 | disposition home or self-care (01) ==
PROVIDERS: Emergency Provider Emergency Medicine; PCP Family Medicine
DX: J40 Bronchitis, not specified as acute or chronic (principal)
CPT/HCPCS: 71045; 87486; 87581; 87633; 99284; J7512; Q0144